=== PATIENT | female | born 1930 | race Caucasian/White ===

== ENCOUNTER 2016-06-12 10:08 | Emergency (ER) | payer MEDICARE, OTHER | END 2016-06-12 10:30 | disposition left against medical advice (07) | LOC: UCEAST 10:08 | DX: M25.519 Pain in unspecified shoulder (principal); Z53.21 Procedure and treatment not carried out due to patient leaving prior to being seen by health care provider ==

== ENCOUNTER 2016-08-29 10:28 | Emergency (ER) | payer MEDICARE, OTHER ==
--- NOTE | 2016-08-29 11:57 | UC ---
Hand/Wrist HPI - HPI Summary HPI Summary: Fell on right wrist - History Of Current Complaint Chief Complaint: UCUpperExtremity Stated Complaint: WRIST INJURY Time Seen by Provider: 08/29/16 11:41 Hx Obtained From: Patient ?: No Mechanism Of Injury: foosh Onset/Duration: Sudden Onset Severity Initially: Moderate Severity Currently: Moderate Pain Intensity: 5 Pain Scale Used: 0-10 Numeric Character Of Pain: Aching Aggravating Factor(s): Movement Alleviating: Rest, Ice Associated Signs And Symptoms: Positive: Swelling Related History: Dominant Hand Right - Allergies/Home Medications Allergies/Adverse Reactions: Allergies Allergy/AdvReac Type Severity Reaction Status Date / Time Gluten Meal Allergy Severe ABD PAIN, Verified 08/29/16 11:24 DIARRHEA Acebutolol Allergy Stomach Verified 08/29/16 11:24 Cramps Aspirin Allergy See Comment Verified 08/29/16 11:24 Atenolol Allergy See Comment Verified 08/29/16 11:24 Carvedilol Allergy Unknown Verified 08/29/16 11:24 Reaction Details Penicillins Allergy See Comment Verified 08/29/16 11:24 Erythromycin AdvReac See Comment Verified 08/29/16 11:24 Iron AdvReac See Comment Verified 08/29/16 11:24 metoprolol Allergy See Comment Uncoded 08/29/16 11:24 propanolol Allergy See Comment Uncoded 08/29/16 11:24 Home Medications: Home Medications Acetaminophen [Acetaminophen Extra Stren] 2 tab PO Q6HR PRN 08/29/16 [History Confirmed 08/29/16] Acyclovir TAB* [Zovirax TAB*] 500 mg PO DAILY 08/29/16 [History Confirmed ] Aspirin [Aspirin 81 MG TAB] 1 tab PO SEE INSTRUCTIONS 08/29/16 [History Confirmed 08/29/16] Cholecalciferol [Vitamin D3] 1 tab PO WEEKLY 08/29/16 [History Confirmed ] DULoxetine DR CAP* [Cymbalta CAP*] 1 tab PO DAILY 08/29/16 [History Confirmed ] Ibuprofen [Advil] 2 tab PO Q6HR PRN 08/29/16 [History Confirmed 08/29/16] Nebivolol HCl [Bystolic] 1 tab PO DAILY 08/29/16 [History Confirmed 08/29/16] Probiotic Product [Align] 1 tab PO DAILY 08/29/16 [History Confirmed 08/29/16] Vitamin B Complex CAP* [B Complex CAP*] 1 tab PO WEEKLY 08/29/16 [History Confirmed 08/29/16] PMH/Surg Hx/FS Hx/Imm Hx Previously Healthy: No Endocrine History Of: Denies: Diabetes Cardiovascular History Of: Reports: Hypertension - on meds Denies: Pacemaker/ICD GI/ History Of: Denies: Renal Disease Cancer History Of: Reports: Breast Cancer - Surgical History Surgical History: Yes Surgery Procedure, Year, and Place: surgical intervention for sm. bowel ca. bilat. radical mastectomy - Family History Known Family History: Positive: Other - stroke, [place], shingles Negative: Cardiac Disease - Social History Occupation: Retired Lives: Alone Alcohol Use: Occasionally Alcohol Amount: "VERY MODEST AMOUNT AT NIGHT" Substance Use Type: None Smoking Status (MU): Never Smoked Tobacco - Immunization History Most Recent Tetanus Shot: 04/18/2014 Review of Systems Constitutional: Negative Skin: Negative Eyes: Negative ENT: Negative Respiratory: Negative Cardiovascular: Negative Gastrointestinal: Negative Genitourinary: Negative Motor: Negative Neurovascular: Negative Musculoskeletal: Arthralgia - right wrist with some swelling Neurological: Negative Psychological: Negative All Other Systems Reviewed And Are Negative: Yes Physical Exam Triage Information Reviewed: Yes Appearance: Well-Appearing, Well-Nourished, Pain Distress Vital Signs: Initial Vital Signs Temp 98.5 F 08/29/16 11:11 Pulse 81 08/29/16 11:11 Resp 16 08/29/16 11:11 BP 147/95 08/29/16 11:11 Pulse Ox 99 08/29/16 11:11 Vital Signs Reviewed: Yes Eye Exam: Normal Eyes: Positive: Conjunctiva Clear ENT Exam: Normal ENT: Positive: Normal ENT inspection, Hearing grossly normal. Negative: Nasal congestion, Nasal drainage, Trismus, Muffled/hoarse voice Dental Exam: Other Dental: Positive: Other: - multiple missing and decayed teeth Neck exam: Normal Neck: Positive: Supple, Nontender Respiratory Exam: Normal Respiratory: Positive: Chest non-tender, Lungs clear, Normal breath sounds, No respiratory distress, No accessory muscle use Cardiovascular Exam: Normal Cardiovascular: Positive: RRR, No Murmur, Pulses Normal, Brisk Capillary Refill Musculoskeletal Exam: Normal Musculoskeletal: Positive: Strength Intact, ROM Intact, Edema @ - right wrist Neurological Exam: Normal Neurological: Positive: Alert, Muscle Tone Normal Psychological Exam: Normal Skin Exam: Normal Diagnostics - Radiology No standard instances Xray Interpretation: No Acute Changes Radiology Interpretation Completed By: Radiologist Re-Evaluation - Re-Evaluation Second Eval Change: Improved - althea and cock up splint applied---patient refused to use cock up splint Hand/Wrist Course/Dx - Course Course Of Treatment: althea, rice,tylenol, follow with ortho---concerned about a impacted radial fracture - Differential Dx/Diagnosis Differential Diagnosis/HQI/PQRI: Contusion, Fracture, Sprain, Strain Provider Diagnoses: right wrist injury Discharge - Discharge Plan Condition: Stable Disposition: HOME Patient Education Materials: Acetaminophen (By mouth), Wrist Injury (ED), DASH Eating Plan (ED), Hypertension (ED), RICE Therapy (ED) Referrals: Nii Ingram MD [Medical Doctor] - 3 Days Kevin Holliday NP [Primary Care Provider] - 2 Weeks
--- NOTE | 2016-08-29 12:20 | RAD ---
INDICATION: Right wrist injury. TECHNIQUE: 3 views of the right wrist were obtained. FINDINGS: The bones are osteopenic. There is soft tissue swelling present along the dorsal aspect of the wrist. No fracture is seen. IMPRESSION: SOFT TISSUE SWELLING, NO FRACTURE IS SEEN. IF THE PATIENT'S SYMPTOMS PERSIST RECOMMEND FOLLOW-UP IMAGING.
[2016-08-29 13:00] VITALS: BP 142/91
== END 2016-08-29 13:00 | disposition home or self-care (01) ==
LOC: UCEAST 10:28
DX: S69.91XA Unspecified injury of right wrist, hand and finger(s), initial encounter (principal); I10 Essential (primary) hypertension; Z88.6 Allergy status to analgesic agent; Z88.3 Allergy status to other anti-infective agents; Z88.0 Allergy status to penicillin; Z79.82 Long term (current) use of aspirin; W19.XXXA Unspecified fall, initial encounter
CPT/HCPCS: 99212; G0463

== ENCOUNTER 2016-11-09 10:36 | Day surgery (SDC) | payer MEDICARE, OTHER ==
[~2016-11-09 10:36] MED LIST: Buffered Lidocaine 0.9% SYRIN* 5 ML/SYR SYRINGE INTRADERM ONE; Famotidine IV* 10 MG/ML 2 ML (20 mg) IV ONE
[2016-11-09] MEDS ORDERED: Famotidine IV* 10 MG/ML 2 ML (20 mg) ONE (10:40)
[2016-11-09] MEDS ORDERED: Clindamycin 900 MG IVPREMIX(* 900 MG/50 ML SDV IV ONE (10:40)
[2016-11-09] MEDS ORDERED: Buffered Lidocaine 0.9% SYRIN* 5 ML/SYR SYRINGE ONE (10:41)
[2016-11-09] MEDS ORDERED: fentaNYL* 50 MCG/ML 2 ML VIAL (100 MCG VIAL) ONE (11:38)
[2016-11-09] MEDS ORDERED: KETAMINE HCL* 50 MG/ML 10 ML VIAL ONE (11:38)
[2016-11-09] MEDS ORDERED: Midazolam* 1 MG/ML 2 ML VIAL (2 MG) ONE (11:38)
[2016-11-09] MEDS ORDERED: oxyCODONE/Acetamin 5/325 MG* TAB PO PRN (12:27)
[2016-11-09] MEDS ORDERED: fentaNYL* 50 MCG/ML 2 ML VIAL (100 MCG VIAL) IV PRN (12:27)
[2016-11-09] MEDS ORDERED: Ondansetron INJ* 2 MG/ML VIAL IV PRN (12:27)
[2016-11-09] MEDS ORDERED: PROCHLORPERAZINE INJ 5 MG/ML 2 ML VIAL IV PRN (12:27)
[2016-11-09] MEDS ORDERED: Lidocaine 1% INJ* 10 MG/ML 30 ML SDV ONE ×2 (12:32→14:50)
[2016-11-09] MEDS ORDERED: Bupivacaine 0.5% W/EPI SDV* 10 ML VIAL INJ ONE (12:32)
[2016-11-09] MEDS ORDERED: Phenylephrine INJ* 10 MG/ML 1 ML VIAL (10 MG) ONE (15:10)
[2016-11-09] MEDS ORDERED: Lidocaine 2% PF * 5 ML VIAL ONE (15:10)
[2016-11-09] MEDS ORDERED: Propofol* 10 MG/ML 20 ML BTL IV PUSH ONE (15:10)
--- NOTE | 2016-11-09 15:23 | SURGPN ---
Brief Operative Note - Surgery Procedures: Procedures OPERATIVE REPORT PRE-OP: Large Cell B Lymphoma Enlarged lymph node in right groin POST-OP: Same PROCEDURE: 1) PowerPort Insertion via percutaneous left internal jugular vein -- 8F 2) Incisional biopsy of enlarged lymph node in right groin SURGEON: MD Shawn ANESTHESIA:Local with MAC Stewart ASST: none IVF: min EBL: min SPECIMEN: Portion of right groin lymph node to pathology FRESH DRAIN: none WOUND CLASS: One COMPLICATIONS: none TO PACU
--- NOTE | 2016-11-09 15:29 | RAD ---
CPT II Codes: 6045F INDICATION: Necessity for Mediport placement and a patient with non-Hodgkin lymphoma. TECHNIQUE: Intraoperative fluoroscopy was provided during left IJV Mediport placement. FINDINGS: 3 spot films depict placement of a left internal jugular vein Mediport with the tip terminating at the low SVC.. Fluoroscopy time: 108.4 seconds IMPRESSION: As above.
--- NOTE | 2016-11-09 16:05 | RAD ---
Indication: Post chest port placement. Non-Hodgkin lymphoma. Comparison: October 26, 2016 PET/CT. Technique: Upright AP 1527 hours Report: Tip of the LEFT chest port is at the level of the superior vena cava RIGHT atrial junction. Negative for pneumothorax. Low lung volumes with associated mild subsegmental atelectasis. Negative for pleural effusion or pneumothorax. Accounting for low lung volumes the mediastinal contours and pulmonary vascularity are unremarkable. IMPRESSION: Appropriate position of LEFT chest port catheter. Negative for pneumothorax.
[2016-11-09 16:15] VITALS: BP 106/75
--- NOTE | 2016-11-10 12:47 | OP ---
CC: Dr. Patricio Orourke * DATE OF OPERATION: 11/09/16 - [facility] DATE OF : 28 SURGEON: Bashir Escobar MD RECORDS MANAGEMENT ENGINEER: None. ANESTHESIOLOGIST: Norbert Sullivan MD ANESTHESIA: Local with monitored anesthesia care. PRE-OP DIAGNOSES: 1. Large B-cell lymphoma. 2. Enlarged lymph node in the right groin. POST-OP DIAGNOSES: 1. Large B-cell lymphoma. 2. Enlarged lymph node in the right groin. OPERATIVE PROCEDURE: 1. Insertion of a left internal jugular vein tunneled 8-Serbian PowerPort. 2. Incisional biopsy of right groin node, sent fresh to Pathology. INDICATIONS: Lilian Morel is an 85-year-old woman with a long history of B- cell lymphoma, now apparently has developed recurrence and to undergo chemotherapy. In addition, she has developed an enlarged lymph node in the right groin and a biopsy has been requested by oncology service for management of her disease. ESTIMATED BLOOD LOSS: Minimal. SPECIMEN: Right groin lymph node, sent fresh to pathology. DRAINS: None. WOUND CLASSIFICATION: I. DESCRIPTION OF PROCEDURE: Written informed consent was obtained, the right and left chest and neck as well as the right groin were marked and antibiotics were administered. The patient was taken to the operating room and placed in the supine position. Initially, the plan was to perform the PowerPort insertion first. The left and right chest and neck were prepped and draped in the usual sterile fashion. Sequential compression devices were placed in the lower extremities. Time-out verification was completed. Initially, 1% lidocaine with epinephrine was infiltrated at the bifurcation of the left sternocleidomastoid muscle and the left neck. Using the ultrasound machine, I was able to identify a suitable-sized patent left internal jugular vein just lateral to the noncompressible artery. Using an 18-gauge Cook needle , I was able to puncture the vein without difficulty with good blood return. The guidewire was inserted. I did meet some resistance at about 5 to 10 cm; however, using fluoroscopy and some careful persistent pressure and withdrawing of guidewire slowly, I was able to feed this into the central venous system down into the superior vena cava and subsequently into the right ventricle. The patient tolerated this portion well. Next, 1% lidocaine with epinephrine was infiltrated on the left anterior chest wall and a transverse incision was made several centimeters below the clavicle. The subcutaneous pocket was made inferior to this large enough to fit the port. Next, a tunnel was then made with the tunneling device between the catheter pocket and the neck puncture site. I did make the puncture site slightly larger in a transverse orientation. Also, a counter incision was made just over the clavicle to make the tunneling process easier, but the catheter was pulled through without difficulty. Next, under direct vision of fluoroscopy, I dilated the tract over the guidewire and subsequently the sheath dilator system was placed over the guidewire and the catheter was inserted over the peel-away sheath and into the superior vena cava. Using fluoroscopy, I was able to pull this back slightly to what I felt was the junction of the right atrium and the superior vena cava. The catheter flushed fluid well and withdrew blood without difficulty. Next, the catheter was cut to the appropriate length, attached to the port, which was then placed into the pocket and sutured into position with 2-0 Prolene suture. Catheter was then tested and it withdrew blood nicely when flushed and then subsequently was flushed with a heparin solution. Hemostasis was assured. The wounds were closed in layers of 3-0 and 4-0 Polysorb suture. The patient had an extremely thin skin and ecchymosis already developed, I thus decided to use Dermabond glue and avoid Steri-Strips and tape dressings. Next, the dressings were removed and the right groin was prepped and draped in the sterile fashion. Time-out verification was completed. 0.5% Marcaine was infiltrated in the right groin. An oblique incision was made over the palpable node. The dissection carried down through the subcutaneous fat until I identified a large firm lymph node appearing mass, which was quite adherent to the surrounding tissue and immobile. This was quite large and I did not feel this would be possible or safe to even attempt an excisional biopsy , thus I took an area of approximately 1 cm x 2 cm using cautery of the top and sent this to Pathology as a fresh specimen. Hemostasis was assured with cautery. I did place some Surgicel for hemostasis over the raw portion of the node. Once hemostasis was assured, I closed the wound in layers with 3-0 and 4-0 Polysorb suture. Once again, DermaFlex glue was placed and no sterile dressing was applied. The patient tolerated the procedure well and was taken to the recovery room in stable condition. Postprocedural chest x-ray showed the catheter to be in good position without evidence of pneumothorax. [id number]/[facility] #: [id number] BESSY
== END 2016-11-09 16:44 | disposition home or self-care (01) ==
LOC: OR 10:36
PROVIDERS: ATTEND Surgery
DX: C85.80 Other specified types of non-Hodgkin lymphoma, unspecified site (principal); I10 Essential (primary) hypertension
CPT/HCPCS: 71010; 88184; 88188; 88307; 88333; 88342; C1788; J1642; J2001; J2250; J2704; J3010

== ENCOUNTER 2016-11-10 17:01 | Inpatient (IN) | payer MEDICARE, OTHER ==
[2016-11-10] MEDS ORDERED: HYDROmorphone* 1 MG/ML 1 ML SYR IV ONE (17:30)
[2016-11-10] MEDS ORDERED: Ondansetron INJ* 2 MG/ML VIAL IV ONE (17:30)
[2016-11-10] MEDS ORDERED: Ketorolac INJ* 30 MG/ML 1 ML VIAL IV ONE (17:35)
--- NOTE | 2016-11-10 18:49 | ED ---
I, Oh,Soohovidio, scribed for Rojelio Pulido MD on 11/10/16 at 1739 . Lower Extremity - HPI Summary HPI Summary: This 85 y/o female presents to ED for right hip pain after tripping over her own shoelace while getting out of truck this afternoon. Movement makes the pain worse. PMHx includes HTN, HLD, constipation, IBS, and hemorrhoid. Hx of ASA use and discontinuation due to easy bleeding. Pt expresses possible constipation due to narcotic medication, and is currently declining any opioid pain medication in ED. - History of Current Complaint Chief Complaint: EDExtremityLower Stated Complaint: FALL Time Seen by Provider: 11/10/16 17:29 Hx Obtained From: Patient, Medical Records Onset/Duration: Hours Pain Intensity: 10 Pain Scale Used: 0-10 Numeric Timing: Constant Location: Is Discrete @ - right hip Character Of Pain: Dull Associated Signs And Symptoms: Positive: Negative Aggravating Factor(s): Standing, Movement Alleviating Factor(s): Rest - Allergies/Home Medications Allergies/Adverse Reactions: Allergies Allergy/AdvReac Type Severity Reaction Status Date / Time Gluten Meal Allergy Severe ABD PAIN, Verified 11/09/16 10:50 DIARRHEA Acebutolol Allergy Stomach Verified 11/09/16 10:50 Cramps Aspirin Allergy See Comment Verified 11/09/16 10:50 Atenolol Allergy See Comment Verified 11/09/16 10:50 Carvedilol Allergy Unknown Verified 11/09/16 10:50 Reaction Details Penicillins Allergy See Comment Verified 11/09/16 10:50 Erythromycin AdvReac See Comment Verified 11/09/16 10:50 Iron AdvReac See Comment Verified 11/09/16 10:50 metoprolol Allergy See Comment Uncoded 11/09/16 10:50 propanolol Allergy See Comment Uncoded 11/09/16 10:50 PMH/Surg Hx/FS Hx/Imm Hx Endocrine/Hematology History: Reports: Other Endocrine/Hematological Disorders - enlarged lymph nodes Denies: Hx Diabetes Cardiovascular History: Reports: Hx Hypertension - on meds Denies: Hx Pacemaker/ICD GI History: Reports: Hx Irritable Bowel, Other GI Disorders - eats soft food, has hemorrhoids History: Denies: Hx Renal Disease, Other Problems/Disorders Musculoskeletal History: Reports: Hx Arthritis - unsure where, Hx Tendonitis - shoulders Denies: Hx Osteoporosis Sensory History: Reports: Hx Cataracts - natanael, Hx Contacts or Glasses - glasses Denies: Hx Hearing Aid Opthamlomology History: Reports: Hx Cataracts - natanael, Hx Contacts or Glasses - glasses Neurological History: Denies: Other Neuro Impairments/Disorders Psychiatric History: Reports: Hx Anxiety - on meds Denies: Hx Panic Disorder - Cancer History Cancer Type, Location and Year: Breast CA bilateral. lymphoma- sm. bowel ca. skin ca Hx Chemotherapy: Yes - Surgical History Surgery Procedure, Year, and Place: surgical intervention for sm. [facility] cancer, [facility] [place], [facility]. bilat. radical mastectomy 1978,[facility] [place] Hx Anesthesia Reactions: No Infectious Disease History: No Infectious Disease History: Reports: Hx Shingles - Currently Denies: History Other Infectious Disease, Traveled Outside the [place] in Last 30 Days - Family History Known Family History: Positive: Other - stroke, [place], shingles Negative: Cardiac Disease - Social History Alcohol Use: Weekly Alcohol Amount: sip quentro 1-2 x per week Hx Substance Use: No Substance Use Type: Reports: None Hx Tobacco Use: No Smoking Status (MU): Never Smoked Tobacco Review of Systems Negative: Fever Negative: Abdominal Pain Positive: Other - right hip All Other Systems Reviewed And Are Negative: Yes Physical Exam - Summary Physical Exam Summary: Well-appearing, no pain distress, well nourished Warm, dry, color reflects adequate perfusion Nml head/face Nml eyes Nml ENT Supple, non-tender CTA, breath sound present RRR Abd soft, non-tender, Musculoskeletal: tender at right hip Nml neuro Nml psychiatric, affect/mood appropriate Triage Information Reviewed: Yes Vital Signs On Initial Exam: Initial Vitals Temp Pulse Resp BP Pulse Ox 98.4 F 56 17 106/83 95 11/10/16 17:04 11/10/16 17:04 11/10/16 17:04 11/10/16 17:04 11/10/16 17:04 Vital Signs Reviewed: Yes - [place] Coma Scale Coma Scale Total: 15 Diagnostics - Vital Signs Vital Signs Temp Pulse Resp BP Pulse Ox 11/10/16 17:12 98.4 F 62 17 106/83 96 11/10/16 17:04 98.4 F 56 17 106/83 95 - Laboratory Lab Statement: Any lab studies that have been ordered have been reviewed, and results considered in the medical decision making process. - Radiology CXR Radiology Interpretation Completed By: Radiologist Right hip Radiology Interpretation Completed By: Radiologist Re-Evaluation - Re-Evaluation First Eval Re-Evaluation Time: 18:31 Comment: MD in room to update pt on X-ray imaging results. Plan of care involving possible admission to OR is discussed with pt. Lower Extremity Course/Dx - Course Course Of Treatment: Consultation: Dr. Barrios (Hospitalist) at [address] Nicole (Ortho) at 1841 PM Assessment/Plan: Ms. Morel had a mechanical fall and broke her right hip. She is being admitted to the hospitalist service with orthopedic consult. - Diagnoses Provider Diagnoses: Closed right hip fracture - Physician Notifications Discussed Care Of Patient With: Dr. Vásquez - 1834, Dr. Nicole - 1844 Discharge - Discharge Plan Condition: Stable Disposition: ADMITTED TO [facility] Referrals: Kevin Holliday, PET TRAINING INSTRUCTOR [Primary Care Provider] - The documentation as recorded by the Yevgeniy valdez Soohyun accurately reflects the service I personally performed and the decisions made by me, Rojelio Pulido MD.
[2016-11-10 18:58] LABS: Hematocrit 37 % (35-47); Hemoglobin 12.4 g/dl (12.0-16.0); Mean Corpuscular HGB Conc 33 g/dl (31-36); Mean Corpuscular Hemoglobin 33 pg (27-31); Mean Corpuscular Volume 98 fL (80-97); Mean Platelet Volume 9 um3 (7.4-10.4); Red Blood Count 3.76 10^6/ul (4.0-5.4); Red Cell Distribution Width 14 % (10.5-15); White Blood Count 9.3 10^3/ul (3.5-10.8)
[2016-11-10 19:08] LABS: Albumin 3.6 g/dL (3.2-5.2); BUN/Creatinine Ratio 20.9 (8-20); Calcium 8.7 mg/dL (8.6-10.3); EGFR African American 107.3 (>60); EGFR Non-African American 83.5 (>60); Globulin 2.6 g/dL (2-4); Total Bilirubin 0.5 mg/dL (0.2-1.0); Total Protein 6.2 g/dL (6.4-8.9)
[2016-11-10 19:09] LABS: Troponin I 0.01 ng/mL (<0.04)
--- NOTE | 2016-11-10 19:44 | RAD ---
Indication: RIGHT hip pain post fall. Comparison: No relevant prior exams available on the [facility] for comparison. Technique: AP pelvis and AP and crosstable lateral views RIGHT hip. Report: Intratrochanteric RIGHT hip fracture with only mild resulting varus angulation. Only minimal osteoarthritic change at the hips. No pelvic fracture or joint diastases evident. 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 Peripheral vascular calcifications. Soft tissue swelling about the LEFT hip. IMPRESSION: Intratrochanteric fracture RIGHT hip.
--- NOTE | 2016-11-10 19:46 | RAD ---
Indication: Fall with RIGHT hip fracture. Comparison: November 09, 2016 Technique: Supine AP chest Report: Tip of LEFT chest port at level of superior vena cava RIGHT atrial junction. Mild medial RIGHT basilar airspace consolidation may represent atelectasis or inflammatory infiltrate. Grossly clear pleural spaces. Cardiomegaly. Unremarkable central pulmonary vasculature. Atherosclerotic calcification of the mildly tortuous thoracic aorta. No thoracic fractures evident. IMPRESSION: Mild medial RIGHT basilar airspace consolidation may represent atelectasis or inflammatory infiltrate.
[2016-11-10] MEDS ORDERED: NS 0.9% 1000 ML* 1,000 ML IV SCH (20:00)
[2016-11-10] MEDS ORDERED: Ondansetron INJ* 2 MG/ML VIAL IV PRN (20:00)
[2016-11-10] MEDS ORDERED: traMADol TAB* 50 MG PO ONE (20:00)
[2016-11-10] MEDS ORDERED: Morphine INJ* 2 MG/ML 1 ML SYRINGE IV PRN (20:00)
[2016-11-10] MEDS ORDERED: Acetaminophen TAB* 325 MG PO PRN (20:00)
[2016-11-10] MEDS ORDERED: Polyethylene Glycol 3350* 17 GM PACKET PO PRN (20:09)
[2016-11-10] MEDS: oxyCODONE/Acetamin 5/325 MG* TAB PO PRN (22:57)
[2016-11-10] MEDS: Pregabalin CAP(*) 50 MG PO SCH (22:57)
[2016-11-10] MEDS: DULoxetine DR CAP* 20 MG CAP.DR PO SCH (22:57)
[2016-11-10] MEDS: Docusate CAP* 100 MG PO SCH (22:58)
--- NOTE | 2016-11-10 23:46 | HP ---
CC: Kevin Holliday NP; Dr. Orourke * ADMISSION HISTORY AND PHYSICAL: DATE OF ADMISSION: 11/10/16 PRIMARY CARE PROVIDER: Dr. Holliday. CONSULTING ORTHOPEDIC SURGEON: Dr. Nicole. PRIMARY ONCOLOGIST: Dr. Orourke. ADMITTING PROVIDER: MALOU Watters SUPERVISING PHYSICIAN: Hemant Mann MD* (DICTATED BY MALOU WATTERS) CHIEF COMPLAINT: Right hip pain. HISTORY OF PRESENT ILLNESS: This is a pleasant 85-year-old female with recent diagnosis of recurrence of B-cell lymphoma as well as hypertension, hyperlipidemia, remote history of breast cancer, GERD, and then unspecified murmur, who presented after sustaining a fall with complaints of right hip pain. The patient, stepping out of an elevator, tripped over her shoe laces and fell on to her right hip with immediate pain. The patient states that she had no preceding complaints of chest pain or dizziness. No presyncopal symptoms. She is quite active at baseline. She lives independently. Functional capacity is excellent. She is able to climb a flight of stairs and walk a city block prior to injury without dyspnea or chest pain. She denies any recent illness including fevers, cough, shortness of breath, abdominal pain , nausea or vomiting. As mentioned above, the patient has unfortunately recently been diagnosed with a recurrence of her lymphoma and is currently under the care of Dr. Orourke. She underwent PowerPort placement and biopsy of right inguinal lymph node just yesterday with plans to start chemotherapy next week. HOME MEDICATIONS: 1. Lyrica unspecified dose, she takes 1 capsule p.o. twice daily. 2. Amlodipine 10 mg p.o. daily. 3. Aspirin 81 mg p.o. daily. 4. Vitamin D3 5000 units weekly. 5. Cymbalta 1 tablet p.o. daily. 6. Ibuprofen 400 mg p.o. q. 6 hours as needed for pain. 7. Nebivolol 5 mg p.o. daily. 8. Probiotic 1 tablet p.o. daily. 9. Valacyclovir 500 mg p.o. daily. 10. Vitamin B complex 1 tablet p.o. weekly. 11. Percocet 5/325 one tablet p.o. q. 6 hours as needed for pain. PAST MEDICAL HISTORY: 1. B-cell lymphoma with recent diagnosis of recurrence. 2. Hypertension. 3. Hyperlipidemia. 4. GERD. 5. Remote history of breast cancer, status post mastectomy. 6. Unspecified heart murmur. PAST SURGICAL HISTORY: 1. Mastectomy x2. 2. Partial bowel resection related to tumor mass. SOCIAL HISTORY: The patient lives independently with her daughter nearby, who is quite supportive. She denies any smoking history and reports occasional alcohol consumption. REVIEW OF SYSTEMS: As noted above in HPI. All other systems have been reviewed and otherwise negative. PHYSICAL EXAMINATION GENERAL: This is an elderly female, accompanied by her daughter and son-in-law , in some mild distress secondary to pain. VITAL SIGNS: Temperature 98.4 degrees Fahrenheit, pulse 56 beats per minute, respiratory rate 17 per minute, oxygen saturation 95% on room air, and blood pressure 106/83 mmHg. HEENT: Head is normocephalic, atraumatic, but the patient has multiple dental caries and missing teeth. NECK: Supple and free of lymphadenopathy. There is a few Steri-Strips that are still in place at the left neck base. RESPIRATORY: Lungs are clear to auscultation without wheezes, crackles, or rhonchi. CARDIOVASCULAR: Heart has a regular rate and rhythm, but there is a loud systolic murmur heard throughout the chest cavity. ABDOMEN: Soft and nontender to palpation. EXTREMITIES: The patient has trace to 1+ lower extremity edema bilaterally. SKIN: The patient has extensive ecchymosis over her left clavicle region, no other concerning rashes or lesions. PSYCH: The patient is alert and appropriately oriented. DIAGNOSTIC STUDIES/LAB DATA: CBC shows a white blood cell count of 9300, hemoglobin 12.4 g/dL, and a platelet count of 213,000. Comprehensive metabolic panel shows a sodium of 136 mmol/L, potassium 4.0, serum bicarb 27, BUN 14, creatinine 0.67. Total bilirubin and transaminases within normal limits. Troponin negative at 0.01. Chest x-ray shows no acute process with a PowerPort in place over the left chest. EKG is pending. Hip x-ray shows a nondisplaced right intertrochanteric fracture. ASSESSMENT AND PLAN: This is an 85-year-old female with recent diagnosis of recurrence of lymphoma, hypertension, hyperlipidemia, GERD, remote breast cancer , and an unspecified murmur, who presents after a mechanical fall resulting in a right hip fracture. 1. Right hip fracture. Orthopedic surgeon, Dr. Nicole, has been in to evaluate the patient and surgery is planned for tomorrow. In terms of preoperative evaluation, EKG is still pending at this time. The patient has no cardiac symptoms. She does have a very loud murmur that is likely consistent with aortic stenosis, but would recommend a preoperative echocardiogram. Otherwise, her RCRI score is 0. There is no additional optimization recommended prior to surgery. Would recommend that she get her beta juliette in the morning and the remainder of her medications, especially her amlodipine should be held. We will start IV fluids this evening to ensure appropriate fluid status preoperatively. The patient is also on a home aspirin, which has been held at this time. Recommend resuming postoperatively, but she has no coronary artery disease history or peripheral vascular disease, so timing of her resuming this medication is not imperative. The patient is extremely fearful of developing constipation and has taken the liberty of starting her on a twice daily stool softener regimen, also ordered a p.r.n. MiraLAX at this time , and the patient would like to limit opiate medications as much as possible. 2. Suspected aortic stenosis. Echocardiogram has been ordered, recommend reviewing this prior to surgery. I suspect she has aortic stenosis, at which point, fluid status is the most important component in avoiding hypotension. 3. Hypertension. Plan to hold her amlodipine tomorrow and continue with her nebivolol. 4. Hyperlipidemia. The patient reports intolerance to multiple statins and is not currently on any lipid-lowering medications. 5. Lymphoma. The patient is recently diagnosed with a recurrence of her disease with PowerPort placement yesterday with plans to initiate chemotherapy next week. Her plans for initiating chemotherapy would certainly need to be addressed with her primary oncologist in terms of appropriate timing and a drug regimen that will provide her the best opportunity for healing. 6. Gastroesophageal reflux disease. 7. Remote history of breast cancer, status post mastectomy x2. 8. Gluten intolerance. Gluten-free diet has been ordered for her. 9. DVT prophylaxis. The patient will be placed on SCDs at this point, but chemical prophylaxis was held with pending surgery for tomorrow. The patient should be started on Lovenox following surgery per Surgery's recommendation. 10. Code status. The patient is a full code. 11. Healthcare proxy is her son, Otis Morel. DISPOSITION: The patient is being admitted to inpatient status with pending surgical fixation tomorrow with pending echocardiogram. Length of stay will be greater than 2 midnights. MALOU WATTERS [id number]/[facility] #: [id number] BESSY
[2016-11-11 05:18] LABS: Hematocrit 34 % (35-47); Hemoglobin 11.1 g/dl (12.0-16.0); Mean Corpuscular HGB Conc 33 g/dl (31-36); Mean Corpuscular Hemoglobin 33 pg (27-31); Mean Corpuscular Volume 99 fL (80-97); Mean Platelet Volume 9 um3 (7.4-10.4); Red Blood Count 3.42 10^6/ul (4.0-5.4); Red Cell Distribution Width 14 % (10.5-15); White Blood Count 7.6 10^3/ul (3.5-10.8)
[2016-11-11 05:34] LABS: BUN/Creatinine Ratio 17.4 (8-20); Calcium 8.2 mg/dL (8.6-10.3); EGFR African American 74.4 (>60); EGFR Non-African American 57.9 (>60); Globulin 2.3 g/dL (2-4); Potassium 3.9 mmol/L (3.5-5.0); Total Bilirubin 0.4 mg/dL (0.2-1.0); Total Protein 5.3 g/dL (6.4-8.9)
[2016-11-11] MEDS ORDERED: NEBIVOLOL 5 MG PO SCH (09:00)
[2016-11-11] MEDS: oxyCODONE/Acetamin 5/325 MG* TAB PO PRN (09:04)
[2016-11-11] MEDS: Pregabalin CAP(*) 50 MG PO SCH ×2 (09:15→21:13)
[2016-11-11] MEDS: Lactobacillus Acidophilu (GG)* 1 CAP CAP PO SCH (09:42)
[2016-11-11] MEDS: Docusate CAP* 100 MG PO SCH ×2 (09:42→21:13)
--- NOTE | 2016-11-11 09:44 | PN ---
Subjective Date of Service: 11/11/16 Interval History: Patient seen and examined at bedside. She reports relatively good pain control to her hip and states, "it doesn't hurt unless I start moving it." Denies CP, SOB, n/v. She had an IV infiltrate in her right arm but denies pain to the extremity. Family History: Unchanged from Admission Social History: Unchanged from Admission Past Medical History: Unchanged from Admission Objective Active Medications: Acetaminophen (Tylenol Tab*) 650 mg PO Q4H PRN PRN Reason: FEVER/PAIN Docusate Sodium (Colace Cap*) 100 mg PO BID [facility] Last Admin: 11/11/16 09:42 Dose: Not Given Duloxetine HCl (Cymbalta Cap*) 20 mg PO BEDTIME [facility] Last Admin: 11/10/16 22:57 Dose: 20 mg Sodium Chloride (Ns 0.9% 1000 Ml*) 1,000 mls @ 75 mls/hr IV PER RATE [facility] Last Admin: 11/10/16 23:05 Dose: 75 mls/hr Lactobacillus Rhamnosus (Culturelle*) 1 cap PO DAILY [facility] Last Admin: 11/11/16 09:42 Dose: Not Given Morphine Sulfate (Morphine Inj (Syringe)*) 2 mg IV Q4H PRN PRN Reason: PAIN Nebivolol (Bystolic Tab (Nf)) 5 mg PO DAILY [facility] Last Admin: 11/11/16 09:04 Dose: 5 mg Ondansetron HCl (Zofran Inj*) 4 mg IV Q4H PRN PRN Reason: NAUSEA/VOMITING Oxycodone/Acetaminophen (Percocet 5/325 Tab*) 1 tab PO Q4H PRN PRN Reason: Pain Last Admin: 11/11/16 09:04 Dose: 1 tab Polyethylene Glycol/Electrolytes (Miralax*) 17 gm PO DAILY PRN PRN Reason: CONSTIPATION Pregabalin (Lyrica Cap(*)) 50 mg PO BID [facility] Last Admin: 11/11/16 09:15 Dose: 50 mg Tramadol HCl (Ultram*) 50 mg PO Q8H PRN PRN Reason: PAIN Valacyclovir HCl (Valtrex 500 Mg (*)) 500 mg PO DAILY [facility] PRN Reason: Protocol Vital Signs 11/10/16 11/10/16 11/10/16 20:22 21:18 21:26 Temperature 98.5 F 98.0 F Pulse Rate 68 70 Respiratory 18 18 18 Rate Blood Pressure 109/64 131/66 (mmHg) O2 Sat by Pulse 95 98 Oximetry 11/10/16 11/10/16 11/10/16 22:45 22:57 23:23 Temperature 98.8 F Pulse Rate 72 Respiratory 18 16 16 Rate Blood Pressure 113/71 (mmHg) O2 Sat by Pulse 95 Oximetry 11/10/16 11/11/16 11/11/16 23:26 00:57 03:40 Temperature 98.1 F Pulse Rate 71 Respiratory 18 16 16 Rate Blood Pressure 98/56 (mmHg) O2 Sat by Pulse 93 Oximetry 11/11/16 11/11/16 09:04 09:15 Temperature Pulse Rate Respiratory 18 18 Rate Blood Pressure (mmHg) O2 Sat by Pulse Oximetry Oxygen Devices in Use Now: None Appearance: Elderly female, lying in bed, NAD Eyes: No Scleral Icterus Ears/Nose/Mouth/Throat: Clear Oropharnyx, Mucous Membranes Moist Neck: NL Appearance and Movements; NL JVP Respiratory: Symmetrical Chest Expansion and Respiratory Effort, Clear to Auscultation Cardiovascular: RRR - loud systolic murmur Abdominal: NL Sounds; No Tenderness; No Distention Extremities: - - ecchymosis to left chest and clavicle, right arm with mild edema, trace BLE edema, distal pulses intact Neurological: Alert and Oriented x 3, NL Muscle Strength and Tone Lines/Tubes/Other Access: Clean, Dry and Intact Peripheral IV Result Diagrams: 11/11/16 04:53 11/11/16 04:53 Assess/Plan/Problems-Billing Assessment: Ms. Morel is an 85 yo female with a PMH of recurrent B-cell lymphoma, HTN, HLD , GERD, and remote hx of breast cancer who presented to the ED on 11/10/16 after a fall and was found to have a right intertrochanteric fracture. - Patient Problems (1) Closed right hip fracture Code(s): S72.001A - FRACTURE OF UNSP PART OF NECK OF RIGHT FEMUR, INIT Comment : Patient with acute intertrochanteric fx of right hip Plan for surgery today Patient has an RCRI score of 0 and previously excellent functional status. Her echocardiogram shows concern for moderate aortic stenosis, for which we recommend close monitoring of patient's volume status. The patient's RV and LV function appears stable and no wall motion abnormalities noted. Patient has no further optimization recommended at this time. (2) HTN (hypertension) Code(s): I10 - ESSENTIAL (PRIMARY) HYPERTENSION Comment: Normotensive Continue nebivolol with hold parameters Hold amlodipine (3) HLD (hyperlipidemia) Code(s): E78.5 - HYPERLIPIDEMIA, UNSPECIFIED Comment: Statin intolerance reported by patient Diet controlled (4) B-cell lymphoma Code(s): C85.10 - UNSPECIFIED B-CELL LYMPHOMA, UNSPECIFIED SITE Comment: Port placement on 11/09 with plan for chemotherapy next week Patient follows with Dr. Orourke. Oncology aware of patient's admission. Continue outpatient follow-up (5) Aortic stenosis, moderate Code(s): I35.0 - NONRHEUMATIC AORTIC (VALVE) STENOSIS (6) DVT prophylaxis Comment: SCDs prior to surgery Resume chemical prophylaxis following surgery Status and Disposition: Inpatient admission. Anticipate LOS >2 days.
--- NOTE | 2016-11-11 10:44 | ECHO ---
Patient: PACHECO NOONAN [facility] Rec#: [id number] : 1930 Date: 11/11/2016 Age: 85y Height: 147.3 cm / 58.0 in Weight: 56.7 kg / 125.0 lbs Sex: F BSA: 1.5 Room#: 335 Admit Date#: 11/10/2016 Type: Inpatient Referring: Byron Norris Reading: Darleen Cárdenas MD Environmental Health Technologist: Tiff García RN RDCS CC: LYDIA BUTLER NP CC: Simone May DO Transthoracic Echocardiogram Indication: Cardiac murmur BP: 98/56 HR: 74 Rhythm: NSR with PACs Findings History: Recurrent B-cell lymphoma, breast cancer, bilateral mastectomy, HTN, HLD, cardiac murmur, anticipating surgery for right hip fracture Technical Comments: The study quality is fair. The study was technically limited due to the patient's inability to lay in the left lateral decubitus position. Completed at 0905. Left Ventricle: The left ventricular chamber size is decreased. Septal wall hypertrophy is observed. There is increased basal septal hypertrophy noted without evidence of an increased gradient across the left ventricular outflow tract. Global left ventricular wall motion and contractility are within normal limits. There is normal left ventricular systolic function. The estimated ejection fraction is 60-65%. Abnormal left ventricular diastolic filling is observed, consistent with impaired relaxation. Left Atrium: The left atrium is slightly dilated. Right Ventricle: The right ventricular chamber size and systolic function are within normal limits. Right Atrium: The right atrial cavity size is normal. Aortic Valve: The aortic valve is trileaflet. The aortic valve leaflets are moderately thickened. Systolic excursion of the aortic valve cusps is reduced. There is no evidence of aortic regurgitation. There is moderate aortic stenosis. The mean gradient of the aortic valve is 16.7 mmHg. The peak instantaneous gradient of the aortic valve is 23.4 mmHg. The aortic valve area, by peak velocities, is calculated at 1 cm2. The aortic valve area, by VTI's, is calculated at 0.9 cm2. The dimensionless index is 0.35-0.38. Mitral Valve: There is mitral annular calcification. The mitral valve leaflets are mildly thickened. There is mild mitral regurgitation. There is no evidence of mitral stenosis. Tricuspid Valve: The tricuspid valve leaflets are normal. There is mild to moderate tricuspid regurgitation. There is evidence of mild pulmonary hypertension. There is no tricuspid stenosis. Pulmonic Valve: The pulmonic valve appears normal. There is a trace pulmonic regurgitation. There is no pulmonic stenosis. Pericardium: There is no significant pericardial effusion. A pericardial fat pad is visualized. Aorta: There is mild dilatation of the ascending aorta. The aortic arch is not well visualized. There is no dilation of the aortic root. Pulmonary Artery: The main pulmonary artery is not well visualized. Venous: The venous system is not well visualized. The inferior vena cava is not visualized. Conclusions The left ventricular chamber size is decreased, septal hypertrophy noted. Global left ventricular wall motion and contractility are within normal limits. The estimated ejection fraction is 60-65%. Abnormal left ventricular diastolic filling is observed, consistent with impaired relaxation. The right ventricular chamber size and systolic function are within normal limits. There is moderate aortic stenosis: mean gradient is 16.7 mmHg, ANDREEA is 0.9 cm2. The dimensionless index is 0.35-0.38. There is mitral annular calcification with mild mitral regurgitation. There is mild to moderate tricuspid regurgitation. There is evidence of mild pulmonary hypertension: 42 mmHg. There is mild dilatation of the ascending aorta: 3.7 cm. Compared with prior echo of 11/16/14, LV and RV function are stable, mild progression in , prior mean gradient 14 mmHg, prior ANDREEA 1.1 cm2, the degree of MR has improved, TR stable, PA pressure presviously 27 mmHg. Ascending aorta dilitation is new. Measurements Name Value Normal Range RVDdMajor (2D) 2.5 cm (2.2 - 4.4) RAd ISD 4CH 4.7 cm (3.4 - 4.9) RA (A4C)W 3.6 cm (2.9 - 4.6) IVSd (2D) 1.6 cm (0.6 - 1) LVPWd (2D) 1.1 cm (0.6 - 1) LVIDd (2D) 2.7 cm (3.6 - 5.4) LVIDs (2D) 1.9 cm - LV FS (2D) 30 % (25 - 45) Aortic Annulus 1.9 cm (1.4 - 2.6) Ao root diameter (2D) 2.9 cm (2.1 - 3.5) Ascending Ao 3.7 cm (2.1 - 3.4) LA dimension (AP) 2D 4.2 cm (2.3 - 3.8) LAd ISD 4CH 4.9 cm (2.9 - 5.3) LA ISD 4CH W 3.8 cm (2.5 - 4.5) Name Value Normal Range LA ESV SP 4CH (A/L) 43 ml - LA ESV SP 2CH (A/L) 54 ml - LA ESV BP (A/L) 49 ml - LA ESV BP (A/L) index 33 ml/m2 - LA ESV SP 4CH (MOD) 42 ml - LA ESV SP 2CH (MOD) 52 ml - Name Value Normal Range MV E-wave Vmax 0.94 m/sec - MV deceleration time 336 msec - MV A-wave Vmax 1.4 m/sec - MV E:A ratio 0.7 ratio - LV septal e' Vmax 0.07 m/sec - LV lateral e' Vmax 0.08 m/sec - LV E:e' septal ratio 13.4 ratio - LV E:e' lateral ratio 11.8 ratio - Name Value Normal Range AV Vmax 2.4 m/sec - AV VTI 60.6 cm - AV peak gradient 23.4 mmHg - AV mean gradient 16.7 mmHg - LVOT diameter 1.8 cm - LVOT Vmax 0.91 m/sec - LVOT VTI 21.1 cm - LVOT peak gradient 3.3 mmHg - LVOT mean gradient 2 mmHg - DOI (VTI) 0.35 ratio - DOI (Vmax) 0.38 ratio - SV LVOT 53.4 ml - ANDREEA (continuity Vmax) 1 cm2 - ANDREEA (continuity VTI) 0.9 cm2 - Name Value Normal Range TR Vmax 2.9 m/sec - TR peak gradient 34 mmHg - RAP 8 mmHg - RVSP 42 mmHg - Name Value Normal Range PV Vmax 0.89 m/sec -
[2016-11-11] MEDS: TRIAMCINOLONE 0.1% TOPICAL SCH ×3 (11:42→21:20)
[2016-11-11] MEDS ORDERED: EPHEDrine (Pressors)* 50 MG/ML VIAL IV SLOW PU ONE (12:30)
[2016-11-11] MEDS ORDERED: Ondansetron INJ* 2 MG/ML VIAL IV ONE (12:30)
[2016-11-11] MEDS ORDERED: Midazolam* 1 MG/ML 2 ML VIAL (2 MG) IV ONE (12:30)
[2016-11-11] MEDS ORDERED: Propofol* 10 MG/ML 20 ML BTL IV PUSH ONE (12:30)
[2016-11-11] MEDS ORDERED: Dexamethasone IV* 4 MG/ML 1 ML (4 MG) IV SLOW PU ONE (12:30)
[2016-11-11] MEDS ORDERED: fentaNYL* 50 MCG/ML 2 ML VIAL (100 MCG VIAL) IV ONE (12:30)
[2016-11-11] MEDS ORDERED: KETAMINE HCL* 50 MG/ML 10 ML VIAL IV ONE (12:30)
[2016-11-11] MEDS ORDERED: Phenylephrine INJ* 10 MG/ML 1 ML VIAL (10 MG) IV ONE (12:30)
[2016-11-11] MEDS ORDERED: Lidocaine 2.5%/Prilocain 2.5%* 5 GM TUBE TOPICAL ONE (13:13)
[2016-11-11] MEDS ORDERED: Buffered Lidocaine 0.9% SYRIN* 5 ML/SYR SYRINGE INTRADERM ONE (14:47)
[2016-11-11] MEDS ORDERED: Famotidine IV* 10 MG/ML 2 ML (20 mg) IV ONE (14:47)
[2016-11-11] MEDS ORDERED: Famotidine IV* 10 MG/ML 2 ML (20 mg) ONE (15:00)
[2016-11-11] MEDS ORDERED: ceFAZolin 2 GM PREMIX(*) 2 GM/50 ML BAG IVPB ONE (15:33)
[2016-11-11] MEDS ORDERED: Bupivacaine 0.25% W/EPI* 50 ML VIAL ONE (16:20)
[2016-11-11] MEDS ORDERED: oxyCODONE/Acetamin 5/325 MG* TAB PO PRN (18:23)
[2016-11-11] MEDS ORDERED: fentaNYL* 50 MCG/ML 2 ML VIAL (100 MCG VIAL) IV PRN (18:23)
[2016-11-11] MEDS ORDERED: fentaNYL* 50 MCG/ML 2 ML VIAL (100 MCG VIAL) ONE (18:23)
[2016-11-11] MEDS ORDERED: Morphine INJ* 2 MG/ML 1 ML SYRINGE IV PRN (18:23)
--- NOTE | 2016-11-11 18:41 | RAD ---
INDICATION: Gamma nail internal fixation RIGHT hip fracture. COMPARISON: November 10, 2016 TECHNIQUE: 48 seconds fluoroscopy. FINDINGS: Spot images document placement of a gamma nail with a distal locking screw at the femoral intramedullary sera component with resulting anatomic alignment. IMPRESSION: Procedural fluoroscopy. CPT II Codes: 6045F
[2016-11-11] MEDS ORDERED: NS 0.9% 1000 ML* 1,000 ML IV SCH (19:45)
[2016-11-11] MEDS: traMADol TAB* 50 MG PO PRN (21:13)
[2016-11-11] MEDS: DULoxetine DR CAP* 20 MG CAP.DR PO SCH (21:14)
[2016-11-12] MEDS ORDERED: ceFAZolin 1 GM in Dextrose (*) 1 GM/50 ML BAG IVPB SCH
[2016-11-12] MEDS: ceFAZolin VIAL(*) 1 GM in NS 0.9% 50 ML* 50 ML IVPB SCH ×3 (00:04→15:50)
--- NOTE | 2016-11-12 04:23 | OP ---
DATE OF OPERATION: 11/11/16 - ROOM #335 DATE OF : 28 SURGEON: Jl Nicole MD ANESTHESIOLOGIST: Norbert Sullivan MD ANESTHESIA: General. PRE-OP DIAGNOSIS: Right hip intertrochanteric fracture. POST-OP DIAGNOSIS: Right hip intertrochanteric fracture. OPERATIVE PROCEDURE: Gamma nailing, right hip fracture. ESTIMATED BLOOD LOSS: 100 cc. COMPLICATIONS: None. SUMMARY: Ms. Morel is an 85-year-old female who had fallen yesterday evening. I met her in the emergency room and discussed with her that a short gamma nail should work well to hold her fracture in place while this heals. Unfortunately, she had been in the hospital here just on Wednesday having a port placed as she has a recurrence of her large B-cell lymphoma. Risks of surgery such as infection, scar formation, stiffness, DVT and increased risk of the DVT and pulmonary embolism were discussed with her. She was admitted to the hospitalist service and had been declared medically optimized. DESCRIPTION OF PROCEDURE: The patient was brought to the OR and general anesthesia was introduced. She was then transferred to the fracture table and placed in a little bit of traction and the leg was adjusted until I had a nice alignment and C-arm was brought in and used to check alignment of the fracture. The fracture was no longer visible by C-arm. Right hip area was prepped and then draped. Skin over the incisional areas were infiltrated using 0.25% Marcaine with epinephrine and a total of 50 cc would be used for the case. Initial incision was made beginning just a little bit proximal to the greater trochanter, it was carried down through the skin and subcutaneous fat. Using a Metzenbaum scissor, I found the alignment that I wanted to make sure I came to the tip of the greater trochanter and deep fascia was then incised where I come through with the scissor. I could then easily palpate tip of the greater trochanter and awl was then placed. Awl was started a little bit and then C- arm was checked in the lateral position and I was aiming. I came in a little bit too posterior and this was taken out and I came back on the AP and restarted , and at this time, it was little too anterior and then finally on the third try , I came right down the center. Guidewire was placed and the reamer was run proximally. Gamma nail was then slid down in its place and the locking arm was adjusted and the guide was then slipped forward. Skin was incised and straight snap was placed and used to open a little bit of the fascia. Guide was then seated down to the bone and the drill was run. C-arm guidance was used to make sure that on the lateral I was coming right down the neck and into the head. Coming back to the AP, positioning was also very good. Measurement was read off of the guidewire and a 95-mm screw was called for. Inner guide was removed and the screw was placed. Nice bite was obtained. Proximal lock was then seated and again this felt good. Distal locking screw guide was placed and again skin was incised and the soft tissues below were bluntly split. Drill was run and a 35-mm screw was called for. Screw seated nicely. Final pictures were saved in both AP and lateral planes. Wounds were irrigated using a bulb syringe and the fascia proximally was closed using a 0 Vicryl. Subcutaneous tissues were reapproximated using 2-0 Vicryl. Skin was closed using oz. Sterile dressing was applied. The patient was then awakened, stable on transfer to the recovery room. [id number]/[facility] #: [id number] BESSY
[2016-11-12 05:24] LABS: Hematocrit 30 % (35-47); Hemoglobin 9.9 g/dl (12.0-16.0); Mean Corpuscular HGB Conc 33 g/dl (31-36); Mean Corpuscular Hemoglobin 33 pg (27-31); Mean Corpuscular Volume 99 fL (80-97); Mean Platelet Volume 9 um3 (7.4-10.4); Red Blood Count 3.03 10^6/ul (4.0-5.4); Red Cell Distribution Width 14 % (10.5-15); White Blood Count 10.3 10^3/ul (3.5-10.8)
[2016-11-12 05:28] LABS: Add Diff/Slide Review? Slide Review Added; Comments Flag Yes
[2016-11-12 05:39] LABS: BUN/Creatinine Ratio 17.6 (8-20); Calcium 7.7 mg/dL (8.6-10.3); EGFR African American 81.6 (>60); EGFR Non-African American 63.4 (>60); Potassium 4.1 mmol/L (3.5-5.0)
[2016-11-12] MEDS: Pregabalin CAP(*) 50 MG PO SCH ×2 (07:57→22:22)
[2016-11-12] MEDS: ValACYclovir (*) 500 MG TAB PO SCH (07:57)
[2016-11-12] MEDS: Docusate CAP* 100 MG PO SCH ×2 (07:57→22:21)
[2016-11-12] MEDS: traMADol TAB* 50 MG PO PRN ×2 (07:57→15:55)
[2016-11-12] MEDS: Lactobacillus Acidophilu (GG)* 1 CAP CAP PO SCH (07:58)
[2016-11-12] MEDS: Heparin VIAL(*) 5000 UNITS/ML VIAL (FIVE THOUSAND) SUBCUT SCH ×2 (07:58→22:22)
[2016-11-12] MEDS: NEBIVOLOL 5 MG PO SCH (08:02)
[2016-11-12] MEDS: TRIAMCINOLONE 0.1% TOPICAL SCH ×3 (10:15→20:12)
[2016-11-12] MEDS ORDERED: diPHENhydraMINE IV* 25 MG in NS 0.9% 50 ML* 50 ML IVPB ONE (11:19)
[2016-11-12] MEDS ORDERED: diPHENhydraMINE IV* 50 MG/ML 1 ml VIAL (BENADRYL) IV PRN (11:19)
--- NOTE | 2016-11-12 11:19 | PN ---
Subjective Date of Service: 11/12/16 Interval History: Patient seen and examined at bedside. The patient is laying completely naked in bed, scratching vigorously. She states that "I'm always itchy" and reports that this is secondary to previous shingles infection. Denies any worsening itching but prefers not to wear clothes , as they increase irritation. She feels the surgery prep may have worsened her itching. Denies CP, SOB, abd pain, n/v. Patient dislikes right hip dressing and is scratching around the site, despite instructions not to do so. She reports extreme sensitivity to tapes, clothes, elastic, etc. and prefers to like in bed with no clothes in order to prevent exacerbation of itching. Family History: Unchanged from Admission Social History: Unchanged from Admission Past Medical History: Unchanged from Admission Objective Active Medications: Acetaminophen (Tylenol Tab*) 650 mg PO Q4H PRN PRN Reason: FEVER/PAIN Docusate Sodium (Colace Cap*) 100 mg PO BID ON LICENSE OF [facility] Last Admin: 11/12/16 07:57 Dose: 100 mg Duloxetine HCl (Cymbalta Cap*) 20 mg PO BEDTIME ON LICENSE OF [facility] Last Admin: 11/11/16 21:14 Dose: 20 mg Heparin Sodium (Porcine) (Heparin Flush Port (Ivad)) 5 ml FLUSH DAILY ON LICENSE OF [facility] PRN Reason: Protocol Last Admin: 11/12/16 08:06 Dose: Not Given Heparin Sodium (Porcine) (Heparin Vial(*)) 5,000 units SUBCUT Q12HR ON LICENSE OF [facility] Last Admin: 11/12/16 07:58 Dose: 5,000 units Sodium Chloride (Ns 0.9% 1000 Ml*) 1,000 mls @ 75 mls/hr IV PER RATE ON LICENSE OF [facility] Last Admin: 11/11/16 21:12 Dose: 75 mls/hr Cefazolin Sodium 1 gm/ Sodium (Chloride) 50 mls @ 200 mls/hr IVPB Q8H ON LICENSE OF [facility] Stop: 11/12/16 16:14 Last Admin: 11/12/16 07:38 Dose: 200 mls/hr Lactobacillus Rhamnosus (Culturelle*) 1 cap PO DAILY ON LICENSE OF [facility] Last Admin: 11/12/16 07:58 Dose: 1 cap Morphine Sulfate (Morphine Inj (Syringe)*) 2 mg IV Q4H PRN PRN Reason: PAIN Nebivolol (Bystolic Tab (Nf)) 5 mg PO DAILY ON LICENSE OF [facility] Last Admin: 11/12/16 08:02 Dose: 5 mg Ondansetron HCl (Zofran Inj*) 4 mg IV Q4H PRN PRN Reason: NAUSEA/VOMITING Oxycodone/Acetaminophen (Percocet 5/325 Tab*) 1 tab PO Q4H PRN PRN Reason: Pain Last Admin: 11/11/16 09:04 Dose: 1 tab Polyethylene Glycol/Electrolytes (Miralax*) 17 gm PO DAILY PRN PRN Reason: CONSTIPATION Pregabalin (Lyrica Cap(*)) 50 mg PO BID ON LICENSE OF [facility] Last Admin: 11/12/16 07:57 Dose: 50 mg Tramadol HCl (Ultram*) 50 mg PO Q8H PRN PRN Reason: PAIN Last Admin: 11/12/16 07:57 Dose: 50 mg Triamcinolone Acetonide (Triamcinolone Acetonide) 0.1 % TOPICAL TID ON LICENSE OF [facility] Last Admin: 11/12/16 10:15 Dose: 0.1 % Valacyclovir HCl (Valtrex 500 Mg (*)) 500 mg PO DAILY ON LICENSE OF [facility] PRN Reason: Protocol Last Admin: 11/12/16 07:57 Dose: 500 mg Vital Signs 11/11/16 11/11/16 11/11/16 11:15 11:49 17:11 Temperature 98.0 F 97.2 F Pulse Rate 64 58 Respiratory 16 16 16 Rate Blood Pressure 107/56 112/65 (mmHg) O2 Sat by Pulse 91 97 Oximetry 11/11/16 11/11/16 11/11/16 17:15 17:20 17:30 Temperature Pulse Rate 61 60 63 Respiratory 18 20 20 Rate Blood Pressure 114/62 107/60 101/56 (mmHg) O2 Sat by Pulse 99 99 95 Oximetry 11/11/16 11/11/16 11/11/16 17:45 18:00 18:15 Temperature Pulse Rate 67 65 70 Respiratory 18 18 16 Rate Blood Pressure 96/55 99/55 102/60 (mmHg) O2 Sat by Pulse 95 96 94 Oximetry 11/11/16 11/11/16 11/11/16 18:30 19:00 19:30 Temperature 97.4 F Pulse Rate 72 58 65 Respiratory 16 16 16 Rate Blood Pressure 101/57 95/55 92/51 (mmHg) O2 Sat by Pulse 93 94 97 Oximetry 11/11/16 11/11/16 11/11/16 20:00 20:29 21:13 Temperature 98.3 F Pulse Rate 65 Respiratory 16 20 17 Rate Blood Pressure 103/59 (mmHg) O2 Sat by Pulse 97 Oximetry 11/11/16 11/11/16 11/11/16 22:27 23:13 23:54 Temperature 98.6 F 98.2 F Pulse Rate 67 73 Respiratory 21 16 20 Rate Blood Pressure 105/62 111/66 (mmHg) O2 Sat by Pulse 98 98 Oximetry 11/12/16 11/12/16 11/12/16 01:28 01:29 03:42 Temperature 99.9 F 97.6 F Pulse Rate 72 70 Respiratory 17 20 Rate Blood Pressure 101/57 101/58 (mmHg) O2 Sat by Pulse 98 92 98 Oximetry 11/12/16 11/12/16 11/12/16 07:23 07:41 07:57 Temperature 98.6 F Pulse Rate 78 Respiratory 16 16 16 Rate Blood Pressure 101/56 (mmHg) O2 Sat by Pulse 94 94 Oximetry 11/12/16 09:57 Temperature Pulse Rate Respiratory 16 Rate Blood Pressure (mmHg) O2 Sat by Pulse Oximetry Oxygen Devices in Use Now: None Appearance: Elderly female, chronically ill appearing, lying in bed, scratching vigorously, but otherwise in NAD Eyes: No Scleral Icterus Ears/Nose/Mouth/Throat: Clear Oropharnyx, Mucous Membranes Moist Neck: NL Appearance and Movements; NL JVP Respiratory: Symmetrical Chest Expansion and Respiratory Effort, Clear to Auscultation Cardiovascular: RRR - loud murmur Abdominal: NL Sounds; No Tenderness; No Distention Extremities: No Clubbing, Cyanosis Skin: - - Patient with frail, ecchymotic red skin. Worsening urticaria noted to abdomen with visible scratches and excoriation noted to abdomen Neurological: Alert and Oriented x 3 Lines/Tubes/Other Access: Clean, Dry and Intact Central Line - left chest wall port Nutrition: Taking PO's Result Diagrams: 11/12/16 05:15 11/12/16 05:15 Assess/Plan/Problems-Billing Assessment: Ms. Morel is an 85 yo female with a PMH of recurrent B-cell lymphoma, HTN, HLD , GERD, and remote hx of breast cancer who presented to the ED on 11/10/16 after a fall and was found to have a right intertrochanteric fracture. - Patient Problems (1) Closed right hip fracture Code(s): S72.001A - FRACTURE OF UNSP PART OF NECK OF RIGHT FEMUR, INIT Comment : POD #1 Management per ortho HH stable Continue PT/OT Pain management (2) Chronic pruritus Code(s): L29.9 - PRURITUS, UNSPECIFIED Comment: Exacerbated by gown and surgery prep Patient states it has worsened after having shingles earlier this year Affected area looks the same to the patient Abdominal urticaria - plan for one dose IV diphendyramine Continue prn antihistamines and home triamcinolone cream (3) HTN (hypertension) Code(s): I10 - ESSENTIAL (PRIMARY) HYPERTENSION Comment: Normotensive Continue nebivolol with hold parameters Hold amlodipine (4) HLD (hyperlipidemia) Code(s): E78.5 - HYPERLIPIDEMIA, UNSPECIFIED Comment: Statin intolerance reported by patient Diet controlled (5) B-cell lymphoma Code(s): C85.10 - UNSPECIFIED B-CELL LYMPHOMA, UNSPECIFIED SITE Comment: Port placement on 11/09 with plan for chemotherapy next week Patient follows with Dr. Orourke. Oncology aware of patient's admission. Continue outpatient follow-up (6) Aortic stenosis, moderate Code(s): I35.0 - NONRHEUMATIC AORTIC (VALVE) STENOSIS (7) DVT prophylaxis Comment: SQ heparin SCDs Status and Disposition: Inpatient admission. Anticipate LOS >2 days.
[2016-11-12] MEDS ORDERED: Calcium Carbonate CHEW TAB* 500 MG (TUMS) PO PRN (11:25)
--- NOTE | 2016-11-12 11:32 | PN ---
Progress Note - Progress Note Date of Service: 11/12/16 SOAP: Subjective: []Patient seen at bedside, she is scratching her right posterior and distal right leg. "I'm itchy all over." JOSE Joiner present at bedside as well and states overall her skin looks more "rashy" on abdominal area than is was yesterday before surgery. Her right incisional pain is minimal. Objective: [] Vital Signs Temp 98.6 F 11/12/16 07:23 Pulse 78 11/12/16 07:23 Resp 16 11/12/16 09:57 BP 101/56 11/12/16 07:23 Pulse Ox 94 11/12/16 07:41 Intake & Output 11/11/16 11/12/16 11/12/16 18:59 06:59 18:59 Intake Total 1383 1361 Output Total 250 675 Balance 1133 686 Intake: IV Fluids 1383 761 LR 700 NS 683 761 IVPB 50 ABX - CEFAZOLIN 50 Oral 550 Output: Smith 250 675 Other: # Bowel Movements 0 Estimated Blood Loss 100 Comment Laboratory Results - last 24 hr 11/12/16 11/12/16 05:15 05:15 WBC 10.3 RBC 3.03 L Hgb 9.9 L Hct 30 L MCV 99 H MCH 33 H MCHC 33 RDW 14 Plt Count 166 MPV 9 Neut % (Auto) 90.1 H Lymph % (Auto) 2.7 L [place] % (Auto) 6.6 Eos % (Auto) 0 Baso % (Auto) 0.6 Absolute Neuts (auto) 9.2 H Absolute Lymphs (auto) 0.3 L Absolute Monos (auto) 0.7 Absolute Eos (auto) 0 Absolute Basos (auto) 0.1 Absolute Nucleated RBC 0.01 Nucleated RBC % 0 Sodium 136 Potassium 4.1 Chloride 107 Carbon Dioxide 26 Anion Gap 3 BUN 15 Creatinine 0.85 Est GFR ( Amer) 81.6 Est GFR (Non-Af Amer) 63.4 BUN/Creatinine Ratio 17.6 Glucose 155 H Calcium 7.7 L Right thigh dressings are intact and dry despite scratching distal to the dressings calf NT and soft +active flexion right knee in bed without pain sensation/ circulation intact Assessment: []s/p Gamma nail for right IT fracture POD #1 Plan: []PT/PT WBAT RLE Benedryl and hydroxazine per medicine for pruritis Heparin for DVT prophylaxis
[2016-11-12] MEDS: DULoxetine DR CAP* 20 MG CAP.DR PO SCH (22:22)
[2016-11-13 07:09] LABS: Hematocrit 27 % (35-47); Hemoglobin 9.1 g/dl (12.0-16.0)
[2016-11-13 07:20] LABS: BUN/Creatinine Ratio 24.4 (8-20); EGFR African American 76.3 (>60); EGFR Non-African American 59.4 (>60); Potassium 3.8 mmol/L (3.5-5.0)
--- NOTE | 2016-11-13 07:53 | PN ---
Progress Note - Progress Note Date of Service: 11/13/16 SOAP: Subjective: 85 y/o female admitted to medicine s/p R hip gamma nail 11/11/[address] Nicole. Patient overall feeling well, less itching overnight. Would like to go home, but understands is in best interest currently for rehab. Objective: General- Well appearing, NAD, AO MSK- dressing removed, oz intact, no drainage noted. + DF/PF b/l LEs, PT pulses 2+ Active Medications Generic Name Dose Route Start Last Admin Trade Name Freq PRN Reason Stop Dose Admin Acetaminophen 650 mg 11/10/16 20:00 Tylenol Tab* PO Q4H PRN FEVER/PAIN Calcium Carbonate 500 mg 11/12/16 11:25 Tums* PO TID PRN DYSPEPSIA Diphenhydramine HCl 25 mg 11/12/16 11:19 Benadryl Iv* IV Q4H PRN PRURITIS Docusate Sodium 100 mg 11/10/16 21:00 11/12/16 22:21 Colace Cap* PO 100 mg BID [facility] Administration Duloxetine HCl 20 mg 11/10/16 22:15 11/12/16 22:22 Cymbalta Cap* PO 20 mg BEDTIME [facility] Administration Heparin Sodium (Porcine) 5 ml 11/11/16 14:00 11/13/16 06:33 Heparin Flush Port (Ivad) FLUSH 5 ml DAILY [facility] Administration Protocol Heparin Sodium (Porcine) 5,000 units 11/12/16 09:00 11/12/16 22:22 Heparin Vial(*) SUBCUT 5,000 units Q12HR [facility] Administration Sodium Chloride 1,000 mls @ 75 mls/hr 11/11/16 19:45 11/11/16 21:12 Ns 0.9% 1000 Ml* IV 75 mls/hr PER RATE [facility] Administration Lactobacillus Rhamnosus 1 cap 11/11/16 09:00 11/12/16 07:58 Culturelle* PO 1 cap DAILY [facility] Administration Morphine Sulfate 2 mg 11/10/16 20:00 Morphine Inj (Syringe)* IV Q4H PRN PAIN Nebivolol 5 mg 11/12/16 07:05 11/12/16 08:02 Bystolic Tab (Nf) PO 5 mg DAILY [facility] Administration Ondansetron HCl 4 mg 11/10/16 20:00 Zofran Inj* IV Q4H PRN NAUSEA/VOMITING Oxycodone/Acetaminophen 1 tab 11/10/16 20:00 11/11/16 09:04 Percocet 5/325 Tab* PO 1 tab Q4H PRN Administration Pain Polyethylene Glycol/Electrolytes 17 gm 11/10/16 20:09 Miralax* PO DAILY PRN CONSTIPATION Pregabalin 50 mg 11/10/16 21:00 11/12/16 22:22 Lyrica Cap(*) PO 50 mg BID [facility] Administration Tramadol HCl 50 mg 11/10/16 20:04 11/12/16 15:55 Ultram* PO 50 mg Q8H PRN Administration PAIN Triamcinolone Acetonide 0.1 % 11/11/16 10:57 11/12/16 20:12 Triamcinolone Acetonide TOPICAL 0.1 % TID [facility] Administration Valacyclovir HCl 500 mg 11/12/16 09:00 11/12/16 07:57 Valtrex 500 Mg (*) PO 500 mg DAILY [facility] Administration Protocol Laboratory Results - last 24 hr 11/13/16 11/13/16 06:30 06:30 Hgb 9.1 L Hct 27 L Sodium 138 Potassium 3.8 Chloride 109 Carbon Dioxide 27 Anion Gap 2 BUN 22 Creatinine 0.90 Est GFR ( Amer) 76.3 Est GFR (Non-Af Amer) 59.4 BUN/Creatinine Ratio 24.4 H Glucose 112 H Calcium 8.0 L Vital Signs Temp 98.1 F 11/13/16 03:57 Pulse 71 11/13/16 03:57 Resp 20 11/13/16 03:57 BP 107/54 11/13/16 03:57 Pulse Ox 94 11/13/16 03:57 Intake & Output 11/12/16 11/13/16 11/13/16 18:59 06:59 18:59 Intake Total 1055 580 Output Total 475 400 Balance 580 180 Intake: IV Fluids 515 NS 515 IVPB 60 ABX - CEFAZOLIN 60 Oral 480 580 Output: Urine 0 400 Smith 475 Other: # Bowel Movements 0 Assessment: 85 y/o female admitted to medicine s/p R hip gamma nail 11/11/[address] Nicole Plan: - DVT prophylaxis- heparin in house - low O2 sats- Discuss with hostpialist, continue to monitor - PMRU D/C today
[2016-11-13] MEDS: ValACYclovir (*) 500 MG TAB PO SCH (10:02)
[2016-11-13] MEDS: Lactobacillus Acidophilu (GG)* 1 CAP CAP PO SCH (10:02)
[2016-11-13] MEDS: TRIAMCINOLONE 0.1% TOPICAL SCH (10:03)
[2016-11-13] MEDS: Docusate CAP* 100 MG PO SCH (10:03)
[2016-11-13] MEDS: Pregabalin CAP(*) 50 MG PO SCH (10:03)
--- NOTE | 2016-11-13 10:03 | PN ---
Subjective Date of Service: 11/13/16 Interval History: Patient seen and examined at bedside. Ms. Morel denies CP, SOB, fever/chills. Feels less itchy today but has been having flare-ups of shingles neuralgia. Patient understands PMRU would be a safe option and states she is willing to go. Family History: Unchanged from Admission Social History: Unchanged from Admission Past Medical History: Unchanged from Admission Objective Active Medications: Acetaminophen (Tylenol Tab*) 650 mg PO Q4H PRN PRN Reason: FEVER/PAIN Calcium Carbonate (Tums*) 500 mg PO TID PRN PRN Reason: DYSPEPSIA Diphenhydramine HCl (Benadryl Iv*) 25 mg IV Q4H PRN PRN Reason: PRURITIS Docusate Sodium (Colace Cap*) 100 mg PO BID [facility] Last Admin: 11/12/16 22:21 Dose: 100 mg Duloxetine HCl (Cymbalta Cap*) 20 mg PO BEDTIME [facility] Last Admin: 11/12/16 22:22 Dose: 20 mg Heparin Sodium (Porcine) (Heparin Flush Port (Ivad)) 5 ml FLUSH DAILY [facility] PRN Reason: Protocol Last Admin: 11/13/16 06:33 Dose: 5 ml Heparin Sodium (Porcine) (Heparin Vial(*)) 5,000 units SUBCUT Q12HR [facility] Last Admin: 11/12/16 22:22 Dose: 5,000 units Sodium Chloride (Ns 0.9% 1000 Ml*) 1,000 mls @ 75 mls/hr IV PER RATE [facility] Last Admin: 11/11/16 21:12 Dose: 75 mls/hr Lactobacillus Rhamnosus (Culturelle*) 1 cap PO DAILY [facility] Last Admin: 11/12/16 07:58 Dose: 1 cap Morphine Sulfate (Morphine Inj (Syringe)*) 2 mg IV Q4H PRN PRN Reason: PAIN Nebivolol (Bystolic Tab (Nf)) 5 mg PO BEDTIME [facility] Ondansetron HCl (Zofran Inj*) 4 mg IV Q4H PRN PRN Reason: NAUSEA/VOMITING Oxycodone/Acetaminophen (Percocet 5/325 Tab*) 1 tab PO Q4H PRN PRN Reason: Pain Last Admin: 11/11/16 09:04 Dose: 1 tab Polyethylene Glycol/Electrolytes (Miralax*) 17 gm PO DAILY PRN PRN Reason: CONSTIPATION Pregabalin (Lyrica Cap(*)) 50 mg PO BID [facility] Last Admin: 11/12/16 22:22 Dose: 50 mg Tramadol HCl (Ultram*) 50 mg PO Q8H PRN PRN Reason: PAIN Last Admin: 11/12/16 15:55 Dose: 50 mg Triamcinolone Acetonide (Triamcinolone Acetonide) 0.1 % TOPICAL TID [facility] Last Admin: 11/12/16 20:12 Dose: 0.1 % Valacyclovir HCl (Valtrex 500 Mg (*)) 500 mg PO DAILY [facility] PRN Reason: Protocol Last Admin: 11/12/16 07:57 Dose: 500 mg Vital Signs 11/12/16 11/12/16 11/12/16 11:53 13:38 14:38 Temperature 98.9 F Pulse Rate 69 Respiratory 16 16 16 Rate Blood Pressure 89/62 (mmHg) O2 Sat by Pulse 88 Oximetry 11/12/16 11/12/16 11/12/16 15:53 15:55 17:55 Temperature 97.9 F Pulse Rate 72 Respiratory 16 16 16 Rate Blood Pressure 96/51 (mmHg) O2 Sat by Pulse 90 Oximetry 11/12/16 11/12/16 11/12/16 20:15 20:32 22:22 Temperature 98.8 F Pulse Rate 74 Respiratory 16 16 16 Rate Blood Pressure 98/49 (mmHg) O2 Sat by Pulse 84 Oximetry 11/13/16 11/13/16 11/13/16 00:10 00:15 00:22 Temperature 98.0 F Pulse Rate 70 Respiratory 18 18 Rate Blood Pressure 89/41 100/56 (mmHg) O2 Sat by Pulse 95 Oximetry 11/13/16 11/13/16 11/13/16 03:57 07:34 09:04 Temperature 98.1 F 98.2 F Pulse Rate 71 69 Respiratory 20 14 16 Rate Blood Pressure 107/54 108/54 (mmHg) O2 Sat by Pulse 94 95 95 Oximetry Oxygen Devices in Use Now: None Appearance: Elderly female, chronically ill appearing, OOB to chair, NAD Eyes: No Scleral Icterus Ears/Nose/Mouth/Throat: Mucous Membranes Moist Neck: NL Appearance and Movements; NL JVP Respiratory: Symmetrical Chest Expansion and Respiratory Effort, Clear to Auscultation Cardiovascular: NL Sounds; No Murmurs; No JVD, RRR Abdominal: NL Sounds; No Tenderness; No Distention Extremities: - - distally nvi Neurological: Alert and Oriented x 3 Lines/Tubes/Other Access: Clean, Dry and Intact Central Line - LCW port Nutrition: Taking PO's Result Diagrams: 11/13/16 06:30 11/13/16 06:30 Assess/Plan/Problems-Billing Assessment: Ms. Morel is an 85 yo female with a PMH of recurrent B-cell lymphoma, HTN, HLD , GERD, and remote hx of breast cancer who presented to the ED on 11/10/16 after a fall and was found to have a right intertrochanteric fracture. - Patient Problems (1) Closed right hip fracture Code(s): S72.001A - FRACTURE OF UNSP PART OF NECK OF RIGHT FEMUR, INIT Comment : POD #2 Management per ortho HH stable Continue PT/OT, PMRU Pain management (2) Chronic pruritus Code(s): L29.9 - PRURITUS, UNSPECIFIED Comment: Improved today Exacerbated by gown and surgery prep Continue prn antihistamines and home triamcinolone cream (3) HTN (hypertension) Code(s): I10 - ESSENTIAL (PRIMARY) HYPERTENSION Comment: Normotensive, hypotensive at times Question if patient may be falling secondary to hypotension Continue nebivolol but move dose to HS, still with hold parameters Hold amlodipine - could probably be discontinued if BP remains soft. (4) HLD (hyperlipidemia) Code(s): E78.5 - HYPERLIPIDEMIA, UNSPECIFIED Comment: Statin intolerance reported by patient Diet controlled (5) Post herpetic neuralgia Code(s): B02.29 - OTHER POSTHERPETIC NERVOUS SYSTEM INVOLVEMENT Comment: Continue duloxetine and pregabalin Secondary to shingles infection in November 2015 (6) B-cell lymphoma Code(s): C85.10 - UNSPECIFIED B-CELL LYMPHOMA, UNSPECIFIED SITE Comment: Port placement on 11/09 with plan for chemotherapy next week Patient follows with Dr. Orourke. Oncology aware of patient's admission. Continue outpatient follow-up (7) Aortic stenosis, moderate Code(s): I35.0 - NONRHEUMATIC AORTIC (VALVE) STENOSIS (8) DVT prophylaxis Comment: SQ heparin SCDs Status and Disposition: Inpatient admission. Discharge to PMRU.
[2016-11-13] MEDS: Heparin VIAL(*) 5000 UNITS/ML VIAL (FIVE THOUSAND) SUBCUT SCH (10:04)
[2016-11-13] MEDS: NEBIVOLOL 5 MG PO SCH (10:24)
--- NOTE | 2016-11-13 10:38 | PN ---
Progress Note - Progress Note Date of Service: 11/13/16 SOAP: Subjective: 85 y/o female s/p gamma nail R hip fx 11/[address] Nicole. H&H stable, VSS overnight. STates itching has subsided with "shingle medication". Pain controlled, increased at night, toleratable during day. Objective: General- Well appearing, sitting comfortably in chair, NAD. MSK- Incision c/d/i, oz in place over right thigh, + DF/PF b/l, PT 2+ b/l , minimal LE edema R leg. + areas of skin irritation along wound, likely due to scratching. Laboratory Results - last 24 hr 11/13/16 11/13/16 06:30 06:30 Hgb 9.1 L Hct 27 L Sodium 138 Potassium 3.8 Chloride 109 Carbon Dioxide 27 Anion Gap 2 BUN 22 Creatinine 0.90 Est GFR ( Amer) 76.3 Est GFR (Non-Af Amer) 59.4 BUN/Creatinine Ratio 24.4 H Glucose 112 H Calcium 8.0 L Vital Signs Temp 98.2 F 11/13/16 07:34 Pulse 69 11/13/16 07:34 Resp 16 11/13/16 10:03 BP 108/54 11/13/16 07:34 Pulse Ox 95 11/13/16 09:04 Intake & Output 11/12/16 11/13/16 11/13/16 18:59 06:59 18:59 Intake Total 1055 580 Output Total 475 400 200 Balance 580 180 -200 Intake: IV Fluids 515 NS 515 IVPB 60 ABX - CEFAZOLIN 60 Oral 480 580 Output: Urine 0 400 200 Smith 475 Other: # Bowel Movements 0 Assessment: 85 y/o female s/p gamma nail R hip fx 11/[address] Nicole. Plan: - DVT prophylaxis- Heparin currently, may DC when more active - Continue PT/ OT - Patient educated on PMRU vs home, advised to go to PMRU which patient was in agreement with. - Follow up with Dr. Nicole within 3-4 weeks for repeat x-rays and evaluation Active Medications Generic Name Dose Route Start Last Admin Trade Name Freq PRN Reason Stop Dose Admin Acetaminophen 650 mg 11/10/16 20:00 Tylenol Tab* PO Q4H PRN FEVER/PAIN Calcium Carbonate 500 mg 11/12/16 11:25 Tums* PO TID PRN DYSPEPSIA Diphenhydramine HCl 25 mg 11/12/16 11:19 Benadryl Iv* IV Q4H PRN PRURITIS Docusate Sodium 100 mg 11/10/16 21:00 11/13/16 10:03 Colace Cap* PO 100 mg BID [facility] Administration Duloxetine HCl 20 mg 11/10/16 22:15 11/12/16 22:22 Cymbalta Cap* PO 20 mg BEDTIME [facility] Administration Heparin Sodium (Porcine) 5 ml 11/11/16 14:00 11/13/16 10:06 Heparin Flush Port (Ivad) FLUSH 5 ml DAILY [facility] Administration Protocol Heparin Sodium (Porcine) 5,000 units 11/12/16 09:00 11/13/16 10:04 Heparin Vial(*) SUBCUT 5,000 units Q12HR [facility] Administration Sodium Chloride 1,000 mls @ 75 mls/hr 11/11/16 19:45 11/11/16 21:12 Ns 0.9% 1000 Ml* IV 75 mls/hr PER RATE [facility] Administration Lactobacillus Rhamnosus 1 cap 11/11/16 09:00 11/13/16 10:02 Culturelle* PO 1 cap DAILY [facility] Administration Morphine Sulfate 2 mg 11/10/16 20:00 Morphine Inj (Syringe)* IV Q4H PRN PAIN Nebivolol 5 mg 11/13/16 21:00 Bystolic Tab (Nf) PO BEDTIME [facility] Ondansetron HCl 4 mg 11/10/16 20:00 Zofran Inj* IV Q4H PRN NAUSEA/VOMITING Oxycodone/Acetaminophen 1 tab 11/10/16 20:00 11/11/16 09:04 Percocet 5/325 Tab* PO 1 tab Q4H PRN Administration Pain Polyethylene Glycol/Electrolytes 17 gm 11/10/16 20:09 Miralax* PO DAILY PRN CONSTIPATION Pregabalin 50 mg 11/10/16 21:00 11/13/16 10:03 Lyrica Cap(*) PO 50 mg BID [facility] Administration Tramadol HCl 50 mg 11/10/16 20:04 11/12/16 15:55 Ultram* PO 50 mg Q8H PRN Administration PAIN Triamcinolone Acetonide 0.1 % 11/11/16 10:57 11/12/16 20:12 Triamcinolone Acetonide TOPICAL 0.1 % TID [facility] Administration Valacyclovir HCl 500 mg 11/12/16 09:00 11/13/16 10:02 Valtrex 500 Mg (*) PO 500 mg DAILY [facility] Administration Protocol
[2016-11-13] MEDS ORDERED: Polyethylene Glycol 3350* 17 GM PACKET PO SCH (10:57)
[2016-11-13] MEDS ORDERED: Magnesium Hydroxide LIQ* 30 ML UDC PO PRN (10:57)
[2016-11-13 12:29] VITALS: BP 109/59
[2016-11-13] MEDS ORDERED: Nebivolol TAB (NF) 5 MG TAB PO SCH (21:00)
--- NOTE | 2016-11-14 11:51 | DS ---
AMENDED REPORT NOW INCLUDES COSIGNER DESIGNATION - ESIGNED BEFORE ADJUSTMENTS CC: Dr. Patricio Orourke; Dr. Nicole; JOSE Carr * MEDICINE DISCHARGE SUMMARY: DATE OF ADMISSION: 11/10/16 DATE OF DISCHARGE: 11/13/16 PRIMARY CARE PHYSICIAN: Dr. Patricio Orourke. PROVIDER: Roni Sykes NP ATTENDING PHYSICIAN: Dr. Mariia Galdamez * (as dictated by Roni Sykes NP). CONSULTING ORTHOPEDIC SURGEON: Dr. Nicole. PRIMARY ONCOLOGIST: Dr. Orourke. PRIMARY CARE PROVIDER: JOSE Carr. PRIMARY DISCHARGE DIAGNOSIS: Right intertrochanteric hip fracture. SECONDARY DISCHARGE DIAGNOSES: 1. Postherpetic neuralgia. 2. Moderate aortic stenosis. 3. Hypertension. 4. Hyperlipidemia. 5. Recurrent B-cell lymphoma. 6. Gastroesophageal reflux disease. 7. Remote history of breast cancer. CURRENT MEDICATIONS: Here in the hospital; 1. Tylenol 650 mg q. 4 hours p.r.n. 2. Calcium carbonate 500 mg b.i.d. p.r.n. 3. Diphenhydramine 25 mg IV q. 4 hours p.r.n. 4. Colace 100 mg b.i.d. 5. Duloxetine 20 mg at bedtime. 6. Heparin 5000 units subcu q. 12 hours. 7. Heparin flush 5 mL daily per protocol. 8. Culturelle 1 capsule daily. 9. Milk of magnesia 30 mL q. 4 hours p.r.n. constipation. 10. Morphine 2 mg IV q. 4 hours p.r.n. 11. Nebivolol 5 mg at bedtime with hold parameters. 12. Zofran 5 IV q. 4 hours p.r.n. 13. Percocet 5/325 one tab q. 4 hours p.r.n. 14. MiraLAX 17 g daily. 15. Lyrica 50 mg b.i.d. 16. Tramadol 50 mg q. 8 hours p.r.n. 17. Triamcinolone cream topical t.i.d. 18. Valacyclovir 500 mg daily. OTHER HOME MEDICATIONS: 1. Ibuprofen 400 mg q. 6 hours p.r.n. 2. Cholecalciferol 5000 units weekly. 3. Amlodipine 10 mg every other day and 5 mg on alternate days. 4. Vitamin B complex 1 tab weekly. HOSPITAL COURSE OF STAY: For full details, please refer to the H and P provided by MALOU Mckeon. In summary, Ms. Morel is an 85-year-old female who presented to the hospital after a fall. The patient unfortunately sustained a right hip fracture. The patient was admitted and surgery occurred the following day on 11/11/16. The patient tolerated surgery well. She has been able to participate in therapy. She was previously independent at home with good functional status. During the patient's stay, the patient has complained of severe pruritus, which was thought to be exacerbated by the laundry here as well as surgical prep that was used for the patient. This has improved with her triamcinolone cream and with home moisturizers. P.r.n. diphenhydramine also has been with given with good effect. The patient has also complained of pain along her left abdomen which she attributes to postherpetic neuralgia following shingles infection in November 2015. She says that this does get better with her duloxetine and Lyrica , which has been continued here. It was noted that the patient was previously on amlodipine and nebivolol at home. In the post operative period, the patient's blood pressures have been notably normotensive and, at times, hypotensive. It does appear that she tends to trend with systolics in the 90s to 100s. We have held her amlodipine since admission, and her blood pressure has remained normotensive and often hypotensive. Following her nebivolol doses, the patient has noted a drop down with systolics in the 80s and 90s that last throughout the day. It may indicate that the patient at home may be having blood pressures that are too low and perhaps some of her falls may be attributed to some orthostasis. Incidentally, I have continued withholding the amlodipine and recommend discontinuing it if the patient's blood pressure continues to follow this trend. As far as her nebivolol, I have continued this with hold parameters, but I have moved it to bedtime to see if we can mitigate any side effects of hypotension while the patient is sleeping. On the day of discharge 11/13/16, the patient is out of bed to chair. She has no acute complaints and feels well. She is in agreement with the plan to go to [facility]. I recognized that this will be beneficial for her, prior to returning home to better regain her strength and continue improving following her surgical interventions for her recent right hip fracture. CONCERNS AT DISCHARGE: Ms. Morel will be discharged to [facility] on 11/13/16. Again recommended that the patient's blood pressure be closely followed and adjustments to medications be made accordingly. DIET: Regular diet. ACTIVITY: As tolerated. CONDITION: Stable. DISPOSITION: To [facility]. TIME SPENT: Time spent on this discharge was approximately 40 minutes. Again, this is only a brief summary of the patient's hospital course of stay. For full details, please refer to the full medical record. If you have any further questions or need further assistance, please feel free to contact me at [phone]. RONI SYKES NP [id number]/[facility] #: [id number] BESSY
== END 2016-11-13 12:30 | DRG 481 ==
LOC: ED 17:01 → SSU 20:00
PROVIDERS: ADMIT Internal Medicine; ATTEND Hospitalist
PROC: 0QH636Z Insertion of Intramedullary Internal Fixation Device into Right Upper Femur, Percutaneous Approach (ICD-10-PCS; principal; 2016-11-10)
DX: S72.141A Displaced intertrochanteric fracture of right femur, initial encounter for closed fracture (principal); C85.10 Unspecified B-cell lymphoma, unspecified site; I35.0 Nonrheumatic aortic (valve) stenosis; K90.41 Non-celiac gluten sensitivity; B02.29 Other postherpetic nervous system involvement; I10 Essential (primary) hypertension; E78.5 Hyperlipidemia, unspecified; K58.9 Irritable bowel syndrome, unspecified; K59.03 Drug induced constipation; T40.605A Adverse effect of unspecified narcotics, initial encounter; Z88.6 Allergy status to analgesic agent; Z88.8 Allergy status to other drugs, medicaments and biological substances; M19.90 Unspecified osteoarthritis, unspecified site; H26.9 Unspecified cataract; Z85.3 Personal history of malignant neoplasm of breast; Z85.828 Personal history of other malignant neoplasm of skin; Z82.3 Family history of stroke; Z80.9 Family history of malignant neoplasm, unspecified; K21.9 Gastro-esophageal reflux disease without esophagitis; W01.0XXA Fall on same level from slipping, tripping and stumbling without subsequent striking against object, initial encounter; Y92.9 Unspecified place or not applicable; L29.9 Pruritus, unspecified; L50.8 Other urticaria; Z79.01 Long term (current) use of anticoagulants
CPT/HCPCS: 36415; 71010; 80048; 80053; 84484; 85014; 85018; 85025; 88184; 88188; 88307; 88333; 88342; 93306; A9270-GY; C1788; J0690; J1100; J1170; J1200; J1642; J1644; J1885; J2001; J2250; J2405; J2704; J3010

== ENCOUNTER 2016-11-13 10:49 | Inpatient (IN) | payer MEDICARE, OTHER ==
[2016-11-13] MEDS ORDERED: Bisacodyl SUPP* 10 MG SUPP PR PRN (11:07)
[2016-11-13] MEDS ORDERED: Magnesium Hydroxide LIQ* 30 ML UDC PO PRN (11:07)
[2016-11-13] MEDS ORDERED: Al Hydrox/Mg Hydrox/Simet LIQ* 30 ML UDC PO PRN (11:07)
[2016-11-13] MEDS ORDERED: Acetaminophen TAB* 325 MG PO PRN (11:07)
[2016-11-13] MEDS ORDERED: Calcium Carbonate CHEW TAB* 500 MG (TUMS) PO PRN (11:20)
[2016-11-13] MEDS ORDERED: oxyCODONE/Acetamin 5/325 MG* TAB PO PRN (11:20)
[2016-11-13] MEDS ORDERED: Triamcinolone 0.1% CREAM (NF) 15 GM TUBE TOPICAL PRN (11:21)
[2016-11-13] MEDS ORDERED: traMADol TAB* 50 MG PO PRN (11:21)
[2016-11-13] MEDS ORDERED: diPHENhydraMINE PO* 25 MG PO PRN (11:23)
[2016-11-13] MEDS ORDERED: TRIAMCINOLONE 0.1% TOPICAL PRN (11:23)
[2016-11-13] MEDS ORDERED: Heparin VIAL(*) 5000 UNITS/ML VIAL (FIVE THOUSAND) SUBCUT SCH (12:00)
--- NOTE | 2016-11-13 14:46 | PMRUTEAM ---
PMRU: Goals Current Status: Physical Therapy: Current Status Bed Mobility Assistance supervision Transfer Moblility Assistance contact guard assist Ambulation Assistance contact guard assist Ambulation Assistive Devices Rolling Walker Stairs Assistance contact guard assist Stairs Recommended Devices One Rail Number of Stairs 6 OCCUPATIONAL THERAPY CURRENT STATUS: Upper body dressing with set up, lower body dressing moderate assistance, bathing minimum assistance, toileting minimum assistance, toilet transfer contact guard. Social Assessment: Lives alone with 13 steps to enter. Daughter is leaving for her home in [place] on 11/16/16 but son will arrive from [place] and plans to stay at least until 11/27/16. Will go home with home services. Goals: PHYSICAL THERAPY INITIAL GOALS: Independent bed mobility; independent transfers and ambulation with rolling walker 150 ft. Independent a flight of stairs with [address]. OCCUPATIONAL THERAPY INITIAL GOALS: Modified independent toileting, bathing, dressing, eating and simple meal prep. Social plan: Home with [facility]. Care Plan: Medication education for self administration, including pain medications. Follow-up with oncology on plan for chemotherapy after discharge. Keep hydrated to prevent urinary tract infection. Monitor skin and control pruritis. Regulate bowels. Enforce safety for home. Medicine Note: Length of Stay: [5 days] Anticipated Discharge Destination: home Tentative Discharge Date: [11/18/2016] Discharged to: [home]
[2016-11-13] MEDS: Pregabalin CAP(*) 50 MG PO SCH (20:00)
[2016-11-13] MEDS: Docusate CAP* 100 MG PO SCH (20:01)
[2016-11-13] MEDS: DULoxetine DR CAP* 20 MG CAP.DR PO SCH (20:01)
[2016-11-13] MEDS: Senna TAB PO SCH (20:03)
[2016-11-13] MEDS: Heparin VIAL(*) 5000 UNITS/ML VIAL (FIVE THOUSAND) SUBCUT SCH (20:04)
--- NOTE | 2016-11-13 20:40 | HP ---
CC: JOSE Carr; Dr. Nicole; Dr. Orourke REHABILITATION ADMISSION: DATE OF ADMISSION: 11/13/16 PRIMARY CARE PROVIDER: JOSE Carr ORTHOPEDIC SURGEON: Dr. Nicole. ONCOLOGIST: Dr. Orourke. REASON FOR ADMISSION: Right intertrochanteric hip fracture. HISTORY OF PRESENT ILLNESS: This is an 85-year-old woman, who was in her usual state of health, on 11/10/16, when she tripped on some shoe laces and fell on her right side. She came to the hospital and was diagnosed with a right intertrochanteric hip fracture. Preoperatively, she had transthoracic echo that showed an ejection fraction of 60% to 65% and moderate aortic stenosis with mild pulmonary hypertension. She also had mild ascending aorta dilatation. She was felt appropriate for surgery and taken to the OR on by Dr. Nicole for gamma nailing of her right hip. She is weightbearing as tolerated precautions. She has recurrent B-cell lymphoma and is followed by Dr. Orourke. A port was placed on 11/09/16 and she is due to start her chemotherapy next week with the first dose being in the hospital. It is unclear what the plans will be for chemotherapy at this point. She had shingles last summer and has postherpetic neuralgia particularly severe in her left side and back. She is chronically on Valtrex as well as uses Lyrica, Cymbalta, and triamcinolone. Prior to admission, she was independent with her ADLs and IADLs and not using any assistive device. With physical therapy, she has required supervision for bed mobility, transfers with contact guard assistance using rolling walker and can ambulate with contact guard assistance up to 40 feet with a rolling walker. With occupational therapy, she has required moderate amount of assistance for lower body dressing and minimal amount of assistance for bathing and contact guard assistance for toileting. She has irritable bowel syndrome and is worried that she has multiple bowel movements in the middle of the night and how she is going to get up in the middle of the night to toilet herself. PAST MEDICAL HISTORY: 1. Recurrent B-cell lymphoma, followed by Dr. Orourke, pending chemotherapy with a left chest port. 2. Hypertension. 3. Hyperlipidemia. 4. GERD. 5. History of breast cancer, status post mastectomy x2. 6. Moderate aortic stenosis. 7. Mild ascending aortic dilatation. 8. Status post partial bowel resection secondary to a mass. 9. Irritable bowel syndrome. MEDICATIONS: 1. Lyrica 50 mg b.i.d. 2. Cymbalta 20 mg q.h.s. 3. Nebivolol 5 mg q. day. 4. Culturelle q. day. 5. Valacyclovir 500 mg q. day. 6. Percocet 5/325 one tablet q.4 hours p.r.n. pain. 7. Tylenol p.r.n. 8. Tums 500 mg t.i.d. p.r.n. 9. Colace 100 mg b.i.d. 10. Heparin 5000 units q.12 hours for DVT prophylaxis. 11. Tramadol 50 mg q.8 hours p.r.n. 12. Triamcinolone 0.1% ointment t.i.d. p.r.n. 13. Benadryl p.r.n. 14. Heparin flush to her port q. day. ALLERGIES: She has STATIN intolerance and GLUTEN intolerance. Aspirin, Erythromycin, Iron, Atenolol, Acebutolol, Gluten, Carvedilol, Penicillin FAMILY HISTORY: Noncontributory. SOCIAL HISTORY: She lives alone. Her daughter is visiting from [place], but will leave Wednesday night. Her son will be coming from [place] next week to help as well. No smoking. Occasional alcohol. Her son, Otis Morel, is her health care proxy. There are 13 steps to enter her home and home has multiple levels, but she can stay on one level. REVIEW OF SYSTEMS: See history of present illness and past medical history. The remainder of system review is completed. No other significant findings. PHYSICAL EXAMINATION GENERAL: Well developed, well nourished. Appearing stated age. VITAL SIGNS: Temperature 98.2, pulse 69, respirations 14, oxygenation 95% on room air, blood pressure 108/54. HEENT: Normocephalic, atraumatic. Oropharynx clear with poor dentition and missing multiple teeth. LUNGS: Clear to auscultation bilaterally. HEART: Regular rate and rhythm. ABDOMEN: Active bowel sounds. Soft, nontender, nondistended. EXTREMITIES: No clubbing, cyanosis, or edema. MUSCULOSKELETAL: She has functional range of motion of all her major joints with limited testing of the right hip and knee due to her recent fracture. NEUROLOGIC: She has 5/5 strength in bilateral upper and lower extremities with pain limited testing of the right hip and knee. Sensation is intact in all 4 extremities. MENTAL STATUS: Alert and oriented x3. SKIN: She has multiple ecchymoses especially around the site where she has had her port and excoriations on her arms and legs. Her oz are clean, dry, and intact. There is a dressing on her right lower leg. She has some Steri- Strips from the procedure to put in the port on her left neck and upper chest. LABORATORY DATA: Hemoglobin today is 9.1, hematocrit 27 down from 9.9 and 30 yesterday. White blood cell count on 11/12/16 was 10.3, platelets 166. On , P3 is normal. IMPRESSION: An 85-year-old woman with right hip fracture and recurrent B-cell lymphoma. She will be admitted to [facility] so she can return to independent living. PLAN: 1. Right hip fracture, status post gamma nail. Follow up with Dr. Nicole as needed. Pain control as needed. 2. DVT prophylaxis. Continue with heparin subcutaneously and discuss a transition to Coumadin or lovenox for home 3. Recurrent B-cell lymphoma. Follow up with Oncology regarding her plans for chemotherapy. Continue with port care. 4. Hypertension. She is off her amlodipine and her blood pressure seems quite soft. Continue nebivolol and monitor her vitals. 5. Irritable bowel syndrome. Continue with Culturelle and bowel meds as needed. 6. Pruritus. Continue with Lyrica, Cymbalta, Benadryl, and triamcinolone. 7. Acute postoperative anemia. Continue to follow her CBC. 8. Impaired self-care. She will be seen by Occupational Therapy for ADL training and equipment evaluation. 9. Impaired mobility. She will be seen by Physical Therapy for bed mobility, transfer and gait training especially doing 13 stairs. Family training as appropriate. 10. Advanced directives. I discussed this with her, her daughter and her son- in-law who were in the room. She does not desire to be resuscitated. A MOLST was completed. If she cannot make decisions for herself, her son, Otis Morel , is her healthcare proxy. 11. Estimated length of stay: 5 to 7 days, then return home. [id number]/[facility] #: [id number] BESSY
[2016-11-14 06:52] LABS: Hematocrit 31 % (35-47); Hemoglobin 10.1 g/dl (12.0-16.0); Mean Corpuscular HGB Conc 33 g/dl (31-36); Mean Corpuscular Hemoglobin 33 pg (27-31); Mean Corpuscular Volume 99 fL (80-97); Mean Platelet Volume 9 um3 (7.4-10.4); Red Cell Distribution Width 15 % (10.5-15); White Blood Count 7.7 10^3/ul (3.5-10.8)
[2016-11-14 07:07] LABS: BUN/Creatinine Ratio 24.6 (8-20); Calcium 8.4 mg/dL (8.6-10.3); EGFR African American 129.3 (>60); EGFR Non-African American 100.6 (>60); Globulin 2.6 g/dL (2-4); Potassium 3.8 mmol/L (3.5-5.0); Total Bilirubin 0.7 mg/dL (0.2-1.0); Total Protein 5.6 g/dL (6.4-8.9)
[2016-11-14] MEDS ORDERED: Nebivolol TAB (NF) 2.5 MG TAB PO SCH (09:00)
[2016-11-14] MEDS: Docusate CAP* 100 MG PO SCH ×2 (09:56→21:29)
[2016-11-14] MEDS: Lactobacillus Acidophilu (GG)* 1 CAP CAP PO SCH (09:56)
[2016-11-14] MEDS: DULoxetine DR CAP* 20 MG CAP.DR PO SCH (09:56)
[2016-11-14] MEDS: Pregabalin CAP(*) 50 MG PO SCH ×2 (09:57→21:29)
[2016-11-14] MEDS: Heparin VIAL(*) 5000 UNITS/ML VIAL (FIVE THOUSAND) SUBCUT SCH ×2 (10:01→21:32)
[2016-11-14] MEDS: ValACYclovir (*) 500 MG TAB PO SCH (13:39)
[2016-11-14] MEDS: Warfarin TAB(*) 3 MG PO SCH (16:55)
[2016-11-14] MEDS: Senna TAB PO SCH (21:29)
[2016-11-15] MEDS: Docusate CAP* 100 MG PO SCH ×2 (09:30→20:06)
[2016-11-15] MEDS: ValACYclovir (*) 500 MG TAB PO SCH (09:30)
[2016-11-15] MEDS: Lactobacillus Acidophilu (GG)* 1 CAP CAP PO SCH (09:30)
[2016-11-15] MEDS: Heparin VIAL(*) 5000 UNITS/ML VIAL (FIVE THOUSAND) SUBCUT SCH ×2 (09:30→20:08)
[2016-11-15] MEDS: Pregabalin CAP(*) 50 MG PO SCH ×2 (09:30→20:09)
[2016-11-15] MEDS: DULoxetine DR CAP* 20 MG CAP.DR PO SCH (09:30)
[2016-11-15] MEDS: NEBIVOLOL 5 MG PO SCH ×2 (09:31→09:39)
[2016-11-15] MEDS: Nystatin SUSPENSION* 100000 UNITS/ML 5 ML UDC PO SCH ×3 (14:18→20:08)
[2016-11-15] MEDS: Warfarin TAB(*) 3 MG PO SCH (17:05)
[2016-11-15] MEDS: Senna TAB PO SCH (20:10)
[2016-11-16] MEDS: ValACYclovir (*) 500 MG TAB PO SCH (09:17)
[2016-11-16] MEDS: Docusate CAP* 100 MG PO SCH (09:18)
[2016-11-16] MEDS: DULoxetine DR CAP* 20 MG CAP.DR PO SCH (09:19)
[2016-11-16] MEDS: NEBIVOLOL 5 MG PO SCH (09:19)
[2016-11-16] MEDS: Lactobacillus Acidophilu (GG)* 1 CAP CAP PO SCH (09:19)
[2016-11-16] MEDS: Pregabalin CAP(*) 50 MG PO SCH ×2 (09:20→21:22)
[2016-11-16] MEDS: Heparin VIAL(*) 5000 UNITS/ML VIAL (FIVE THOUSAND) SUBCUT SCH ×2 (09:22→21:25)
[2016-11-16] MEDS: Nystatin SUSPENSION* 100000 UNITS/ML 5 ML UDC PO SCH ×4 (09:23→21:23)
[2016-11-16] MEDS ORDERED: Senna TAB PO PRN (13:49)
[2016-11-16] MEDS ORDERED: Docusate CAP* 100 MG PO PRN (13:49)
[2016-11-16] MEDS ORDERED: Warfarin TAB(*) 5 MG PO SCH (17:00)
[2016-11-17] MEDS: Pregabalin CAP(*) 50 MG PO SCH ×2 (09:34→20:52)
[2016-11-17] MEDS: Lactobacillus Acidophilu (GG)* 1 CAP CAP PO SCH (09:34)
[2016-11-17] MEDS: Nystatin SUSPENSION* 100000 UNITS/ML 5 ML UDC PO SCH ×4 (09:35→21:53)
[2016-11-17] MEDS: NEBIVOLOL 5 MG PO SCH (09:35)
[2016-11-17] MEDS: ValACYclovir (*) 500 MG TAB PO SCH (09:36)
[2016-11-17] MEDS: Heparin VIAL(*) 5000 UNITS/ML VIAL (FIVE THOUSAND) SUBCUT SCH (09:36)
[2016-11-17] MEDS: DULoxetine DR CAP* 20 MG CAP.DR PO SCH (09:42)
--- NOTE | 2016-11-17 12:43 | PMRUTEAM ---
RU: Goals Current Status: Nursing: Current Status Skin Deviations [Generalized] Other Skin Deviations [Right Hip] Incision Skin Deviations [Right Lateral Abrasion Knee] Skin Deviations [Left Upper Other Chest] Skin Deviation Description [ scabs all over Generalized] Skin Deviation Description [ incisions x3 intact with clips and open to air Right Hip] Skin Deviation Description [ healing well. left open to air Right Lateral Knee] Skin Deviation Description [ port intact Left Upper Chest] Bladder Current Status voiding. no incontinence Bowel Current Status refused colace this am Nutrition Current Status appetite adequate Medication Current Status needs reinforcement. declined to take bystolic this am Physical Therapy: Current Status Bed Mobility Assistance Supervision Transfer Moblility Assistance Supervision Transfer/Bed Mobility Rolling Walker Recommended Devices Ambulation Assistance Supervision Ambulation Assistive Devices Rolling Walker Number of Feet Patient 150' Ambulated Stairs Assistance supervision Stairs Recommended Devices 1 rail Number of Stairs 12 Occupational Therapy: Current Status Upper Body Dressing Supervision Lower Body Dressing Supervision Lower Body Dressing Progress FWW, AE Bathing Supervision Bathing Progress FWW Toileting Supervision Toileting Progress FWW Toilet Transfer Supervision Toilet Transfer Progress FWW Shower Transfer Progress refuses Eating Supervision Eating Progress set-up Rec Therapy: Current Status Summary of Assessment and RT assessment complete and pt. is aware of Clinical Impression services. Pt. is talkative in conversation and open to continued visits. Pt. visits with family in the afternoon. Treatment Goals Pt. will engage in leisure activities while on the unit. Treatment Plan Provide RT services and encourage involvement. Social Work: Current Status Discharge Plan return home with home care svs and family support Potential for Family Training pt's son may be available for family training Anticipated Discharge Home Destination Discharge With VNS and family support Nutrition: Current Status Monitoring Per nutrition assessment 11/14: Pt with PMH significant for recurrent B-cell lymphoma, currently admitted to the [facility] s/p OR on 11/11 for R hip fracture. Visited pt and pt's daughter this afternoon. Pt reported that she was feeling well but tried due to physical therapy. Pt endorsed a good appetite, noted intake of 75-100% of meals. Pt currently ordered for a gluten free diet. Pt is choosing preferences per menu. Pt denied nausea/vomiting or difficulty swallowing. Pt did note that she has some difficulty chewing due to missing teeth. Pt denied need for a soft texture diet, however when pt orders vegetables they are cooked soft per her request. Will monitor tolerance. Per chart, no skin breakdown. BMs 11/14 -11/16. Labs reviewed; electrolytes WNL, glucose: 133. Will monitor. Goals: Physical Therapy: Updated Goals Independent bed mobility, transfers, gait and stairs. Rolling walker. Occupational Therapy: Initial Goals Goals to be Completed in (Days 5 ) Upper Body Bathing Routine Independent Lower Body Bathing Routine Modified Independent with Upper Body Dressing Routine Independent Lower Body Dressing Routine Modified Independent with Toilet Hygeine and Clothing Modified Independent with Management Routine Toilet Transfer Routine Modified Independent with Functional Transfers for ADL Modified Independent with Grooming Routine Independent Feeding Routine Independent Nursing: Goals Bladder Goal independent Bowel Goal last bm 11/16/16 Nutrition Goal 100% of all meals eaten Medication Goal supervision with medications Nutrition: Goals Intervention Goals 1. Pt will tolerate diet w/o s/sx of difficulty chewing 2. Adequate PO intake to maintain weight/prevent loss of lean body mass 3. Pt will demonstrate understanding of coumadin/ vitamin K interaction prior to dc Social Work: Goals Discharge Plan return home with home care svs and family support Potential for Family Training pt's son may be available for family training Anticipated Discharge Home Destination Discharge With VNS and family support Care Plan: Care Plan ADL's - Improve/Maintain Start: 11/17/16 07:18 Freq: DAILY Status: Active Target: Activity Type Activity Date Activity User E-Sign Co-Sign Detail Recorded Client Recorded Date Recorded By Document 11/16/16 16:25 [id number] 11/17/16 07:20 [id number] 11/16/16 16:25 PMRU Outcome: ADL's/ADL Transfers Orders/Interventions Occupational Therapy Evaluation & Treatment Device Yes Patient to receive OT 5x/wk for 60-120 Therex min/day Self Care Management Group Therapy Neuromuscular ReEducation UE/LE ADL's with Assist Yes: mod I ADL Transfers with Assist Yes: mod I Toileting: Transfers,Clothing Management Yes: mod I ,Hygeine w/Assist Light Kitchen/Laundry w/Assist No Progression Toward Outcome/Goals Progressing Outcome/Goals Met Pt progressing well and using AE for RLE. DVT Prophylaxis- Improve/Maintain Start: 11/13/16 22:41 Freq: DAILY Status: Active Target: Activity Type Activity Date Activity User E-Sign Co-Sign Detail Recorded Client Recorded Date Recorded By Document 11/17/16 10:39 [id number] 11/17/16 10:41 [id number] 11/17/16 10:39 PMRU Outcome: DVT Prophylaxis Outcome/Goals Remains Free of DVT Demonstrates Knowledge of DVT Prevention/ Treatment TEDS Stockings on Every AM, Off at HS Progression Toward Outcome/Goals Progressing Outcome/Goals Met Comment patient compliant with having heparin admininstered this am Discharge Planning - Improve/Maintain Start: 11/13/16 22:41 Freq: DAILY Status: Active Target: Activity Type Activity Date Activity User E-Sign Co-Sign Detail Recorded Client Recorded Date Recorded By Document 11/16/16 11:12 [id number] 11/16/16 11:13 [id number] 11/16/16 11:12 PMRU Outcome: Discharge Planning Identify Patient Needs yes Update Patient Family 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 Outcome/Goals Demonstrates Understanding of Discharge Plan Homecare Referral - See Comment Progression Toward Outcome/Goals Progressing Education-Improve/Maintain Start: 11/13/16 22:41 Freq: DAILY Status: Active Target: Activity Type Activity Date Activity User E-Sign Co-Sign Detail Recorded Client Recorded Date Recorded By Document 11/17/16 10:39 [id number] 11/17/16 10:41 [id number] 11/17/16 10:39 PMRU Outcome: Education Outcome/Goals Demonstrate/ Verbalize Understanding of Written Discharge Instructions Demonstrates Skills Encourage Questions Progression Toward Outcome/Goals Progressing Mobility- Improve/Maintain Start: 11/13/16 15:02 Freq: DAILY Status: Active Target: Activity Type Activity Date Activity User E-Sign Co-Sign Detail Recorded Client Recorded Date Recorded By Document 11/14/16 17:15 [id number] 11/14/16 17:16 [id number] 11/14/16 17:15 PMRU Outcome: Mobility Physical Therapy Evaluation and Yes Treatment Activity OOB with Assistance Yes WBAT Yes Device Yes Assistance Yes Patient to be seen 5x/wk for 60-120 min/ Therex day for: Mobility Training Gait Training Balance Other Therapy Comment Stairs Outcome/Goals Maintain/ Achieve Baseline Mobility Status Improve Mobility Status Demonstrates Proper Use of Assistive Devices Free from Complications of Immobility Progression Toward Outcome/Goals Progressing Bed Mobility Yes: Independent Transfers Yes: Modified independent with RW Gait x ft Yes: Modified independent 150 ' with RW Up/Down Stairs Yes: Independent 13 steps 1 railing With HEP Yes: Independent Pain/Comfort- Improve/Maintain Start: 11/13/16 22:41 Freq: DAILY Status: Active Target: Activity Type Activity Date Activity User E-Sign Co-Sign Detail Recorded Client Recorded Date Recorded By Document 11/17/16 10:39 [id number] 11/17/16 10:41 [id number] 11/17/16 10:39 PMRU Outcome: Pain/Comfort Outcome/Goals Demonstrates Knowledge and Use of Available Comfort Measures Achieves Acceptable Comfort/Pain Level as Determined by Patient/Condit Maintain Comfort Level Allowing Patient to Fully Participate in Rehab Progression Toward Outcome/Goals Progressing Outcome/Goals Met Comment routine lyrica given Respiratory - Improve/Maintain Start: 11/13/16 22:41 Freq: DAILY Status: Active Target: Activity Type Activity Date Activity User E-Sign Co-Sign Detail Recorded Client Recorded Date Recorded By Document 11/17/16 10:39 [id number] [employer]-ExactFlat 11/17/16 10:41 [id number] 11/17/16 10:39 PMRU Outcome: Respiratory Does Patient Have a Trach No Outcome/Goals Maintain/ Improve O2 Sat per MD Order Maintain/ Improve Baseline Respiratory Status Maintain/ Improve Activity Tolerance Prevent Pneumonia/ Atelectasis Progression Toward Outcome/Goals Progressing Outcome/Goals Met Comment using incentive spirometer on her own Safety- Improve/Maintain Start: 11/13/16 22:41 Freq: DAILY Status: Active Target: Activity Type Activity Date Activity User E-Sign Co-Sign Detail Recorded Client Recorded Date Recorded By Document 11/17/16 10:39 [id number] [employer]-ExactFlat 11/17/16 10:41 [id number] 11/17/16 10:39 PMRU Outcome: Safety Outcome/Goals Remain Free of Injury or Harm Cooperates with Safety Measures for Least Restrictive Environment Prevent Falls/ Injury Progression Toward Outcome/Goals Progressing Skin- Improve/Maintain Start: 11/13/16 22:41 Freq: DAILY Status: Active Target: Activity Type Activity Date Activity User E-Sign Co-Sign Detail Recorded Client Recorded Date Recorded By Document 11/17/16 10:39 [id number] [employer]-C14 11/17/16 10:41 [id number] 11/17/16 10:39 PMRU Outcome: Skin Skin Risk Level Medium Skin Orders Heels Off Bed Outcome/Goals Maintain/ Improve Skin Intergrity Free from Decubitus Surgical Incisions Healing Progression Toward Outcome/Goals Progressing Medicine Note: Length of Stay: [1 day] Anticipated Discharge Destination: Home Tentative Discharge Date: [11/18/16] Discharged to: [home]
[2016-11-17] MEDS: Calcium Carbonate CHEW TAB* 500 MG (TUMS) PO PRN ×2 (14:51→20:53)
[2016-11-17] MEDS ORDERED: Enoxaparin(*) 30 MG/0.3 ML SYR SUBCUT SCH (21:00)
[2016-11-18 06:44] VITALS: BP 120/70
[2016-11-18] MEDS: DULoxetine DR CAP* 20 MG CAP.DR PO SCH (08:22)
[2016-11-18] MEDS: ValACYclovir (*) 500 MG TAB PO SCH (08:22)
[2016-11-18] MEDS: Lactobacillus Acidophilu (GG)* 1 CAP CAP PO SCH (08:22)
[2016-11-18] MEDS: Pregabalin CAP(*) 50 MG PO SCH (08:23)
[2016-11-18] MEDS: Nystatin SUSPENSION* 100000 UNITS/ML 5 ML UDC PO SCH (08:23)
[2016-11-18] MEDS: NEBIVOLOL 5 MG PO SCH (08:24)
--- NOTE | 2016-11-19 04:09 | DS ---
CC: JOSE Carr; Dr. Nicole; Dr. Orourke REHABILITATION DISCHARGE SUMMARY: DATE OF ADMISSION: 11/13/16 DATE OF DISCHARGE: 11/18/16 PRIMARY CARE PROVIDER: JOSE Carr ORTHOPEDIC SURGEON: Dr. Nicole. ONCOLOGY: Dr. Orourke. REASON FOR ADMISSION: Right hip fracture. HISTORY OF PRESENT ILLNESS: For full details of her acute hospitalization leading up to her admission, please see the note dictated by myself on 11/13/16. HOSPITAL COURSE: During her time on the [facility], she remained medically stable. She participated well with physical therapy and at the time of discharge is independent, ambulating with a rolling walker 150 feet. She is independent with bed mobility and transfers. She is also able to ascend 12 steps with one rail. She also participated well with occupational therapy, and at the time of discharge is independent with dressing using adaptive equipment, grooming using adaptive equipment, bathing using adaptive equipment, and toileting using adaptive equipment. Her son has come in from [place] to assist her at discharge as needed. She needed some triamcinolone topically for hemorrhoids, but she was using that already at home. She did develop thrush on 11/15/16, but that responded very quickly to nystatin swish and swallow and she will not be going home with that. Initially we attempted to transition her to Coumadin for DVT prophylaxis, but her INR never moved and so the decision was made on 05/05 to instead have her go home with Lovenox 30 mg q.24 hours for the next 2 weeks for DVT prophylaxis after her hip fracture. Her plans for chemotherapy have been put on hold for her recurrent B-cell lymphoma. She already has a port in place in her left chest and the needle was removed. She is to follow up with Dr. Orourke tomorrow. DISCHARGE CONDITION: Good. DISCHARGE DISPOSITION: Home with family support. DISCHARGE MEDICATIONS: 1. Triamcinolone 0.1% ointment apply topically t.i.d. p.r.n. 2. Enoxaparin 30 mg q.24 hours subcutaneously for DVT prophylaxis for 14 more days. 3. Vitamin B complex 1 tablet daily. 4. Vitamin D3 1 tablet weekly. 5. Probiotic 1 per day. 6. Acetaminophen 1000 mg q.6 hours p.r.n. pain. 7. Bystolic 5 mg daily. 8. Duloxetine 20 mg daily. 9. Valacyclovir 50 mg daily. 10. Lyrica 50 mg b.i.d. She may restart aspirin 81 mg daily once she is done the Lovenox. DISCHARGE DIAGNOSES: 1. Right hip fracture, status post ORIF. 2. Recurrent B-cell lymphoma. 3. Hypertension. 4. Posthepatic neuralgia. 5. Acute postoperative anemia. 6. Thrush. FOLLOWUP: 1. She is to follow up with Dr. Orourke on 11/19/16 at 10:40 in the morning. 2. Follow up with Dr. Nicole in the next month. 3. Follow up with Kevin Holliday in the next month. 4. A referral has been sent to visiting nurse services for home care and staple removal between post-op days 12-14. DISCHARGE CONDITION: Good. DISCHARGE DISPOSITION: Home with family support. [id number]/[facility] #: [id number] MTDD
== END 2016-11-18 10:15 | disposition home health service (06) | DRG 560 ==
LOC: PMRU 12:32
PROVIDERS: ADMIT Physical Medicine & Rehabilitation; ATTEND Physical Medicine & Rehabilitation
PROC: F07Z5ZZ Bed Mobility Treatment (ICD-10-PCS; principal; 2016-11-13)
PROC: F07Z9ZZ Gait Training/Functional Ambulation Treatment (ICD-10-PCS; 2016-11-13)
PROC: F07Z8ZZ Transfer Training Treatment (ICD-10-PCS; 2016-11-13)
PROC: F08Z0ZZ Bathing/Showering Techniques Treatment (ICD-10-PCS; 2016-11-13)
PROC: F08Z1ZZ Dressing Techniques Treatment (ICD-10-PCS; 2016-11-13)
PROC: F08Z3ZZ Feeding/Eating Treatment (ICD-10-PCS; 2016-11-13)
DX: S72.141D Displaced intertrochanteric fracture of right femur, subsequent encounter for closed fracture with routine healing (principal); C85.10 Unspecified B-cell lymphoma, unspecified site; B37.0 Candidal stomatitis; I27.2 Other secondary pulmonary hypertension; B02.29 Other postherpetic nervous system involvement; W18.09XD Striking against other object with subsequent fall, subsequent encounter; I35.0 Nonrheumatic aortic (valve) stenosis; I10 Essential (primary) hypertension; E78.5 Hyperlipidemia, unspecified; K21.9 Gastro-esophageal reflux disease without esophagitis; I77.810 Thoracic aortic ectasia; K58.9 Irritable bowel syndrome, unspecified; Z79.1 Long term (current) use of non-steroidal anti-inflammatories (NSAID); Z79.01 Long term (current) use of anticoagulants; Z79.899 Other long term (current) drug therapy; Z88.6 Allergy status to analgesic agent; Z88.1 Allergy status to other antibiotic agents; Z88.0 Allergy status to penicillin; Z88.8 Allergy status to other drugs, medicaments and biological substances; Z91.018 Allergy to other foods; K64.9 Unspecified hemorrhoids
CPT/HCPCS: 36415; 80053; 85025; 85610; A9270-GY; J1642; J1644; J1650

== ENCOUNTER 2017-01-18 17:36 | Inpatient (IN) | payer MEDICARE, OTHER ==
[2017-01-18] MEDS ORDERED: Acetaminophen TAB* 325 MG PO ONE (18:05)
[2017-01-18] MEDS ORDERED: NS 0.9% 1000 ML* 1,000 ML IV ONE ×2 (18:05→19:09)
[2017-01-18 18:51] LABS: Hematocrit 39 % (35-47); Hemoglobin 12.8 g/dl (12.0-16.0); Mean Corpuscular HGB Conc 33 g/dl (31-36); Mean Corpuscular Hemoglobin 31 pg (27-31); Mean Corpuscular Volume 95 fL (80-97); Mean Platelet Volume 8 um3 (7.4-10.4); Red Blood Count 4.09 10^6/ul (4.0-5.4); Red Cell Distribution Width 17 % (10.5-15); White Blood Count 8.1 10^3/ul (3.5-10.8)
[2017-01-18] MEDS ORDERED: Adenosine* 3 MG/ML VIAL IV PUSH ONE ×2 (19:01→19:04)
[2017-01-18] MEDS ORDERED: Adenosine* 3 MG/ML VIAL ONE (19:02)
[2017-01-18 19:05] LABS: Troponin I 0.03 ng/mL (<0.04)
[2017-01-18 19:08] LABS: BUN/Creatinine Ratio 13.4 (8-20); C Reactive Protein 72.81 mg/L (< 5.00); Calcium 8.6 mg/dL (8.6-10.3); EGFR African American 59.2 (>60); Globulin 2.9 g/dL (2-4); Potassium 3.8 mmol/L (3.5-5.0); Total Bilirubin 1.1 mg/dL (0.2-1.0); Total Protein 5.9 g/dL (6.4-8.9)
[2017-01-18] MEDS ORDERED: Levofloxacin 750 MG IVPREMIX(* 750 MG/150 ML BAG IVPB ONE (19:09)
--- NOTE | 2017-01-18 19:19 | RAD ---
INDICATION: Fall COMPARISON: Most recent comparison chest x-rays dated November 10, 2016 TECHNIQUE: Single AP portable view of the chest was obtained. FINDINGS: Image quality is compromised due to the relative inferiority of a portable chest x-ray. The patient's left internal jugular vein Mediport terminates at the superior vena cava unchanged from the prior radiograph. The heart and mediastinum exhibit normal size and contour. There is atherosclerotic calcification overlying the arch of the aorta. The lungs are grossly clear. There is no evidence of a large pleural effusion. Visualized bones are normal for the patient's age. IMPRESSION: No radiographic evidence for acute cardiopulmonary abnormality on this portable chest x-ray.
[2017-01-18] MEDS ORDERED: Docusate CAP* 100 MG PO PRN (20:06)
[2017-01-18] MEDS ORDERED: Ondansetron INJ* 2 MG/ML VIAL IV PRN (20:06)
[2017-01-18] MEDS ORDERED: Acetaminophen TAB* 325 MG PO PRN (20:06)
--- NOTE | 2017-01-18 21:19 | ED ---
Nereida Correa Nilda, scribed for Rojelio Pulido MD on 01/18/17 at 1901 . Adult Trauma - HPI Summary HPI Summary: This patient is an 86 year old F BIBA presenting to [facility] [place] accompanied by son s/ p unwitnessed fall down a flight of stairs at 1700 today (1 hour ago). The patient rates the pain 0/10 in severity. Patient has cough and fever. She denies neck pain and pain from fall. PMHx includes hip fracture (months ago). Per nurse assessment, patient is a poor historian and does not know how she fell. - History of Current Complaint Chief Complaint: EDSyncope Stated Complaint: FALL Time Seen by Provider: 01/18/17 17:53 Hx Obtained From: Patient, Medical Records - nurse assessment Mechanism of Injury: Fall Onset/Duration: Started Hours Ago Current Severity: None Pain Intensity: 0 Pain Scale Used: 0-10 Numeric Associated Signs & Symptoms: Positive: Cough, Fever - Additional Pertinent History Primary Care Physician: DEVANTE - Allergy/Home Medications Allergies/Adverse Reactions: Allergies Allergy/AdvReac Type Severity Reaction Status Date / Time Gluten Meal Allergy Severe ABD PAIN, Verified 11/09/16 10:50 DIARRHEA Aspirin Allergy See Comment Verified 11/09/16 10:50 Carvedilol Allergy Unknown Verified 11/09/16 10:50 Reaction Details Penicillins Allergy See Comment Verified 11/23/16 13:06 Acebutolol AdvReac Stomach Verified 11/23/16 13:06 Cramps Atenolol AdvReac See Comment Verified 11/23/16 13:06 Erythromycin AdvReac See Comment Verified 11/09/16 10:50 Iron AdvReac See Comment Verified 11/09/16 10:50 Metoprolol AdvReac See Comment Verified 11/23/16 13:06 Propranolol AdvReac See Comment Verified 11/23/16 13:06 PMH/Surg Hx/FS Hx/Imm Hx Endocrine/Hematology History: Reports: Other Endocrine/Hematological Disorders - enlarged lymph nodes Denies: Hx Diabetes Cardiovascular History: Reports: Hx Hypercholesterolemia, Hx Hypertension Denies: Hx Pacemaker/ICD GI History: Reports: Hx Gastroesophageal Reflux Disease, Hx Irritable Bowel, Other GI Disorders - eats soft food, has hemorrhoids History: Denies: Hx Renal Disease, Other Problems/Disorders Musculoskeletal History: Reports: Hx Arthritis - unsure where, Hx Tendonitis - shoulders Denies: Hx Osteoporosis Sensory History: Reports: Hx Cataracts - natanael, Hx Contacts or Glasses, Hx Hearing Problem Denies: Hx Hearing Aid Opthamlomology History: Reports: Hx Cataracts - natanael, Hx Contacts or Glasses Neurological History: Denies: Other Neuro Impairments/Disorders Psychiatric History: Reports: Hx Anxiety Denies: Hx Panic Disorder - Cancer History Cancer Type, Location and Year: Breast CA bilateral. lymphoma- sm. bowel ca. skin ca Hx Chemotherapy: Yes - Surgical History Surgery Procedure, Year, and Place: surgical intervention for sm. [place] [facility] [place] bil[place]. radical mastectomy [place] [place] Hx Anesthesia Reactions: No Infectious Disease History: Yes Infectious Disease History: Reports: Hx Shingles - Currently Denies: History Other Infectious Disease, Traveled Outside the [place] in Last 30 Days - Family History Known Family History: Positive: Other - stroke, CA, shingles Negative: Cardiac Disease, Hypertension, Diabetes - Social History Alcohol Use: None Alcohol Amount: sip quentro 1-2 x per week Hx Substance Use: No Substance Use Type: Reports: None Hx Tobacco Use: No Smoking Status (MU): Never Smoked Tobacco Review of Systems Positive: Fever Positive: Cough Positive: Other - negative neck pain and pain from fall Psychological: Other - Fall All Other Systems Reviewed And Are Negative: Yes Physical Exam Triage Information Reviewed: Yes Vital Signs On Initial Exam: Initial Vitals Temp Pulse Resp BP Pulse Ox 103.0 F 122 18 129/83 96 01/18/17 17:45 01/18/17 17:45 01/18/17 17:45 01/18/17 17:45 01/18/17 17:45 Vital Signs Reviewed: Yes Appearance: Positive: Well-Appearing, No Pain Distress Skin: Positive: Warm, Skin Color Reflects Adequate Perfusion, Dry Head/Face: Positive: Normal Head/Face Inspection Eyes: Positive: Normal ENT: Positive: Normal ENT inspection Neck: Positive: Supple, Nontender Respiratory/Lung Sounds: Positive: Clear to Auscultation, Breath Sounds Present Cardiovascular: Positive: Tachycardia Abdomen Description: Positive: Nontender, Soft Bowel Sounds: Positive: Present Musculoskeletal: Positive: Normal, Other - Nontender Neurological: Positive: Normal Psychiatric: Positive: Normal, Affect/Mood Appropriate Diagnostics - Vital Signs Vital Signs Temp Pulse Resp BP Pulse Ox 01/18/17 18:34 96 01/18/17 17:45 103.0 F 122 18 129/83 96 - Laboratory Lab Results: Lab Results 01/18/17 Range/Units 18:25 WBC 8.1 (3.5-10.8) 10^3/ul RBC 4.09 (4.0-5.4) 10^6/ul Hgb 12.8 (12.0-16.0) g/dl Hct 39 (35-47) % MCV 95 (80-97) fL MCH 31 (27-31) pg MCHC 33 (31-36) g/dl RDW 17 H (10.5-15) % Plt Count 165 (150-450) 10^3/ul MPV 8 (7.4-10.4) um3 Neut % (Auto) 86.3 H (38-83) % Lymph % (Auto) 4.2 L (25-47) % [place] % (Auto) 6.3 (1-9) % Eos % (Auto) 2.5 (0-6) % Baso % (Auto) 0.7 (0-2) % Absolute Neuts (auto) 7.0 (1.5-7.7) 10^3/ul Absolute Lymphs (auto) 0.3 L (1.0-4.8) 10^3/ul Absolute Monos (auto) 0.5 (0-0.8) 10^3/ul Absolute Eos (auto) 0.2 (0-0.6) 10^3/ul Absolute Basos (auto) 0.1 (0-0.2) 10^3/ul Absolute Nucleated RBC 0 10^3/ul Nucleated RBC % 0 Result Diagrams: 01/18/17 18:25 01/18/17 18:25 Lab Statement: Any lab studies that have been ordered have been reviewed, and results considered in the medical decision making process. - Radiology CXR Radiology Interpretation Completed By: Radiologist - No radiographic evidence for acute cardiopulmonary abnormality on this protable chest xray. ED physician has reviewed this radiology report and agrees. - EKG 1828 Cardiac Rate: Tachycardia - 115 bpm EKG Rhythm: Sinus Tachycardia EKG Interpretation: baseline wander, LVH 1907 Cardiac Rate: Tachycardia - 114 bpm EKG Rhythm: Sinus Tachycardia EKG Comparison: No Significant Change - from 1827 on 01/18/17 Re-Evaluation - Re-Evaluation First Eval Re-Evaluation Time: 19:05 Comment: Patient has dysrhythmia. ED Physician ordering another EKG. Adult Trauma Course/Dx - Course Course Of Treatment: Ms. Morel was found at the bottom of the steps. It is unclear what happened but she has no C/O. She presented febrile and tachycardic. Labs, CXR and U/A were ordered and she was given fluids, acetaminophen and levaquin. She had a brief run of SVT that broke with adenocard. - Diagnoses Provider Diagnoses: Sepsis, SVT (supraventricular tachycardia), Syncope and collapse - Physician Notifications Discussed Care Of Patient With: Hao Soto - Hospitalist Time Discussed With Above Provider: 19:25 Instructed by Provider To: Admit As Inpatient - Critical Care Time Critical Care Time: 30-74 min Discharge - Discharge Plan Condition: Stable Disposition: ADMITTED TO [facility] The documentation as recorded by the Nereida valdez Nilda accurately reflects the service I personally performed and the decisions made by me, Rojelio Pulido MD.
[2017-01-18] MEDS: NS 0.9% 1000 ML* 1,000 ML IV SCH (21:43)
[2017-01-18] MEDS: Atorvastatin* 20 MG TAB PO SCH (21:43)
--- NOTE | 2017-01-18 23:35 | HP ---
CC: JOSE Carr; Patricio Orourke MD * ADMISSION HISTORY AND PHYSICAL: DATE OF ADMISSION: 01/18/17 PRIMARY CARE PROVIDER: JOSE Carr and Patricio Orourke MD HEALTHCARE PROXY: Her son, Otis. CODE STATUS: DNR/DNI. Discussed with the patient and her son. SOURCE OF INFORMATION: History obtained from interview with the patient and her son. RELIABILITY: Fair. HISTORY OF PRESENT ILLNESS: This is an 86-year-old female, current history of follicular lymphoma, receiving chemotherapy from our oncology group. Last treatment approximately 3 weeks prior to presentation per patient. Started regimen is 6 weeks prior to presentation per patient's son. The patient has been weak over the last couple of days with diarrhea worse in the morning and anorexia and an occasional cough. Because of a decreased appetite, her son and the patient have proceeded to [facility] to get nutritional supplements and upon returning home, daughter was walking up the stairs when the son heard a fall, found her at the bottom of stairs. The patient does not remember the fall, only remembers arriving at [facility] Emergency Room, although son indicates that she was awake and interacting with EMS. She otherwise denies any recent fevers, chills, nausea, vomiting or symptoms over the last days or weeks. She has notable skin breakdown over her entire body from face to toes that she does not notice worse; however, son thinks it is worse since starting chemotherapy. Per emergency room, she had a T-max of 103 degrees Fahrenheit and was in supraventricular tachycardia, for which she receives 6 mg of adenosine and 12 mg of adenosine with slowing of her heart rate from 166 to the 110s into sinus tachycardia. For this reason, the hospitalist service was consulted for admission. When seen by this author, the patient had no complaints. PAST MEDICAL HISTORY: Follicular lymphoma, currently receiving therapy; moderate aortic stenosis; postherpetic neuralgia; hypertension; hyperlipidemia; GERD; remote history of breast cancer, status post bilateral mastectomy; IBS; right hip fracture, concern for orthostatic hypotension on past admission; ORIF of right hip; partial small bowel resection for a tumor mass resection. CURRENT MEDICATIONS: From medication sheet include: 1. Bystolic 5 mg. 2. Lyrica 100 mg daily. 3. Cymbalta 20 mg daily. 4. Valacyclovir 500 mg 5 times a week. 5. Vitamin D 5000 units weekly. 6. B complex with C once weekly/iron 1 daily. 7. Pravastatin 20 mg daily, although the patient is not clear whether she is taking this or not. ALLERGIES: To GLUTEN, ASPIRIN, CARVEDILOL, PENICILLINS, ACEBUTOLOL, ATENOLOL, ERYTHROMYCIN, IRON, METOPROLOL, AND PROPRANOLOL. FAMILY HISTORY: Mother with breast cancer. Father with stroke. SOCIAL HISTORY: No tobacco. Rare alcohol. Lives alone. Has no home health aides. Ambulates unassisted. REVIEW OF SYSTEMS: As per HPI, includes anorexia, cough, fatigue, otherwise all other systems reviewed negative. PHYSICAL EXAMINATION GENERAL: Elderly woman, sitting up in bed, interactive, pleasant, in no apparent distress. VITAL SIGNS: When seen by this author, blood pressure 115/69, heart rate is 110 , respiratory rate is 20, temperature 99.7, and she is 96% on room air. HEENT: Oropharynx is clear. She has dry mucous membranes. Sclerae are anicteric. NECK: She has non-elevated JVD. No cervical or supraclavicular lymphadenopathy. LUNGS: Coarse breath sounds throughout. No notable rales. HEART: She has tachycardic heart rate with 2/6 systolic ejection murmur. ABDOMEN: Soft, nontender, and nondistended with positive bowel sounds. EXTREMITIES: Warm and well perfused. She has bulky lymphadenopathy over her right elbow. NEURO: She is alert and oriented x3. Her cranial nerves II through XII are intact. No apparent anxiety, agitation, or depression. SKIN: Has small ulcers with skin breakdown over all aspects of her body, face, chest, back, stomach, extremities and toes, none with any evidence of active inflammation or an infection. DIAGNOSTIC STUDIES/LAB DATA: Reviewed. Notable for creatinine 1.12, glucose 106, lactic acid 1.5, total bilirubin 1.1, alk phos 196, AST 13, ALT 14, troponin I 0.03, CRP is 72. INR is 2.1. White blood cell count 8.1, hemoglobin 12.8, platelets 163. Urine is pending. Data reviewed. EKG, adenosine, sinus tachycardia left axis, no ST or T-wave changes, late R-wave progression. Chest x-ray, no radiographic evidence for acute cardiopulmonary abnormalities on this portable chest x-ray. ASSESSMENT AND PLAN: This is an 86-year-old female with active follicular lymphoma, progressing on last PET scan, receiving chemotherapy, presented to the hospital after a fall, T-max 103 with new supraventricular tachycardia, responding to adenosine. 1. Follicular lymphoma, may be etiology of fever. Oncology to resume care tomorrow. 2. Supraventricular tachycardia, now sinus rhythm after receiving adenosine suspected in the setting of high fevers. We will continue with normal saline 125 cc per hour for 2 additional liters. Check orthostatic vital signs in the setting of fall. 3. Hypertension. Continue Bystolic, hold antihypertensives. 4. Fall, unclear etiology, potential in the setting of orthostasis with walking upstairs. This has been a concern on her last hospital stay where she resulted with broken hip. However, in the setting of high fevers, suspected as contributing as well as potential dehydration contributing to orthostasis as evidenced by her worsening renal function. Getting fluids as indicated above. Check orthostatic vital sings. Hold antihypertensives. Monitor on telemetry. 5. Fever. Chest x-ray did not elucidate source at this time. Urine pending, although no urinary symptoms. History of recent diarrhea, although only in the morning. Check stool culture as well as Clostridium difficile. The patient has many skin lesions, which have high likelihood of developing infection, although none identified at the time of presentation that looked actively infected and contributing to a fever of 103. Tumor fever is possibility, although very high in the setting of lymphoma. Tylenol for fevers. Received Levaquin in the emergency room. Hold on antibiotics further at this time. 6. DVT prophylaxis. Elevated INR. Repeat INR tomorrow. Holding on other DVT prophylaxis in the setting of supratherapeutic INR. 7. Code status. DNR/DNI. MOLST filled out, placed on chart. [id number]/[facility] #: [id number] BESSY
[2017-01-19] MEDS: CLOBETASOL 0.05% TOPICAL PRN (02:31)
[2017-01-19] MEDS ORDERED: Nebivolol TAB (NF) 2.5 MG TAB PO ONE ×2 (03:23→11:30)
[2017-01-19] MEDS ORDERED: diPHENhydraMINE PO* 50 MG PO ONE (03:24)
[2017-01-19] MEDS: NS 0.9% 1000 ML* 1,000 ML IV SCH (05:43)
[2017-01-19 05:55] LABS: Hematocrit 35 % (35-47); Hemoglobin 11.5 g/dl (12.0-16.0); Mean Corpuscular HGB Conc 33 g/dl (31-36); Mean Corpuscular Hemoglobin 32 pg (27-31); Mean Corpuscular Volume 95 fL (80-97); Mean Platelet Volume 8 um3 (7.4-10.4); Red Blood Count 3.66 10^6/ul (4.0-5.4); Red Cell Distribution Width 17 % (10.5-15); White Blood Count 7.2 10^3/ul (3.5-10.8)
[2017-01-19 06:06] LABS: Albumin 2.5 g/dL (3.2-5.2); BUN/Creatinine Ratio 15.7 (8-20); Calcium 7.4 mg/dL (8.6-10.3); Direct Bilirubin 0.1 mg/dL (0.03-0.18); EGFR African American 77.2 (>60); Globulin 2.3 g/dL (2-4); Indirect Bilirubin 0.7 mg/dL (0.3-1.0); Potassium 3.7 mmol/L (3.5-5.0); Total Bilirubin 0.8 mg/dL (0.2-1.0); Total Protein 4.8 g/dL (6.4-8.9)
[2017-01-19] MEDS ORDERED: CMCS: Nebivolol TAB (NF) 2.5 MG TAB PO SCH (09:00)
[2017-01-19] MEDS ORDERED: Influenza VAC *QUAD* 2017-18* 0.5 ML SYRINGE IM ONE (09:00)
[2017-01-19] MEDS: ValACYclovir (*) 500 MG TAB PO SCH (09:32)
[2017-01-19] MEDS: Pregabalin CAP(*) 100 MG PO SCH (09:32)
[2017-01-19] MEDS: DULoxetine DR CAP* 20 MG CAP.DR PO SCH (09:32)
[2017-01-19 14:25] LABS: Urine Bacteria 1+ (Absent); Urine Bilirubin Negative (Negative); Urine Glucose Negative (Negative); Urine Nitrite Negative (Negative)
[2017-01-19] MEDS ORDERED: diPHENhydraMINE PO* 50 MG PO PRN (18:45)
[2017-01-19] MEDS: Atorvastatin* 20 MG TAB PO SCH (20:10)
[2017-01-20] MEDS: CLOBETASOL 0.05% TOPICAL PRN ×2 (01:47→08:38)
[2017-01-20 05:35] LABS: Hematocrit 35 % (35-47); Hemoglobin 11.5 g/dl (12.0-16.0); Mean Corpuscular HGB Conc 33 g/dl (31-36); Mean Corpuscular Hemoglobin 31 pg (27-31); Mean Corpuscular Volume 95 fL (80-97); Mean Platelet Volume 9 um3 (7.4-10.4); Red Blood Count 3.68 10^6/ul (4.0-5.4); Red Cell Distribution Width 17 % (10.5-15); White Blood Count 6.9 10^3/ul (3.5-10.8)
[2017-01-20 05:46] LABS: BUN/Creatinine Ratio 14.7 (8-20); Calcium 7.5 mg/dL (8.6-10.3); EGFR Non-African American 73.1 (>60); Potassium 3.8 mmol/L (3.5-5.0)
[2017-01-20 07:43] VITALS: BP 133/78
[2017-01-20] MEDS: ValACYclovir (*) 500 MG TAB PO SCH (07:55)
[2017-01-20] MEDS: DULoxetine DR CAP* 20 MG CAP.DR PO SCH (07:55)
[2017-01-20] MEDS: Pregabalin CAP(*) 100 MG PO SCH (07:55)
[2017-01-20] MEDS ORDERED: CMC:Nebivolol TAB (NF) 2.5 MG TAB PO SCH (09:00)
--- NOTE | 2017-01-20 10:09 | DS ---
- Discharge Summary ADMIT DATE: 01/18/2017 DISCHARGE DATE: 01/20/2017 DISCHARGE DIAGNOSIS: 1. Viral Gastroenteritis 2. follicular lymphoma DISCHARGE MEDICATIONS: Home Medications Medication Instructions Recorded Confirmed Type Acetaminophen [Acetaminophen Extra 2 tab PO Q6HR PRN 08/29/16 01/19/17 History Stren] Cholecalciferol [Vitamin D3] 1 tab PO WEEKLY 08/29/16 01/19/[address] CAP* [Cymbalta CAP*] 1 tab PO DAILY 08/29/16 01/19/17 History Nebivolol HCl [Bystolic] 1 tab PO DAILY 08/29/16 01/19/17 History Probiotic Product [Align] 1 tab PO DAILY 08/29/16 01/19/17 History Vitamin B Complex CAP* [B Complex 1 tab PO WEEKLY 08/29/16 01/19/17 History CAP*] Valacyclovir HCl [Valtrex] 500 mg PO DAILY 11/06/16 01/19/17 History Lyrica CAP(*) 1 cap PO BID 11/09/16 01/19/17 History Triamcinolone 0.1% OINT(NF) 1 applic TOPICAL TID PRN #0 gm 11/17/16 01/19/17 Rx [Kenolog 0.1% OINT(NF)] Clobetasol 0.05% OINT* 1 applic TOPICAL . DIRECTED PRN 01/20/17 Rx #0 tube Pregabalin CAP(*) [Lyrica CAP(*)] 100 mg PO DAILY cap MDD 100 01/20/17 Rx diPHENhydraMINE PO* [Benadryl PO 50 mg PO BEDTIME PRN #0 cap 01/20/17 Rx 50 MG CAP*] DISCHARGE FOLLOW UP: Dr. 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 Her cultures were all negative and she defervesced and improved off of antibiotics supporting a viral etiology to her presentation. She is fairly frail and I expressed concern to Lilian and her son regarding her living independently. She is clear that she will NOT accept assisted living at this time, and she was very mentally clear and competent in making this decision. She did accept a [facility]NS referral and her son will be staying with her for now. She will see Dr. Orourke tomorrow to discuss starting palliative idelesilib. >30 mins spent,>50% in face to face counseling
== END 2017-01-20 11:17 | disposition home health service (06) | DRG 392 ==
LOC: ED 17:36 → MEDTELE 20:06
PROVIDERS: ADMIT Internal Medicine; ATTEND Internal Medicine Hematology & Oncology
PROC: 3E0234Z Introduction of Serum, Toxoid and Vaccine into Muscle, Percutaneous Approach (ICD-10-PCS; principal; 2017-01-19)
DX: A08.4 Viral intestinal infection, unspecified (principal); C82.60 Cutaneous follicle center lymphoma, unspecified site; I35.0 Nonrheumatic aortic (valve) stenosis; I47.1 Supraventricular tachycardia; R50.9 Fever, unspecified; R79.1 Abnormal coagulation profile; Z66 Do not resuscitate; H26.9 Unspecified cataract; H91.90 Unspecified hearing loss, unspecified ear; K58.9 Irritable bowel syndrome, unspecified; F41.9 Anxiety disorder, unspecified; I10 Essential (primary) hypertension; K21.9 Gastro-esophageal reflux disease without esophagitis; Z92.21 Personal history of antineoplastic chemotherapy; Z90.13 Acquired absence of bilateral breasts and nipples; Z88.8 Allergy status to other drugs, medicaments and biological substances; Z88.0 Allergy status to penicillin; Z88.1 Allergy status to other antibiotic agents; Z82.3 Family history of stroke; Z80.3 Family history of malignant neoplasm of breast; Z91.018 Allergy to other foods; Z85.068 Personal history of other malignant neoplasm of small intestine; Z23 Encounter for immunization
CPT/HCPCS: 36415; 71010; 80048; 80053; 80076; 81003; 81015; 82550; 83605; 84484; 85025; 85384; 85610; 85730; 86140; 87040; 87077; 87086; 87186; 87493; 87502; 90686; 93005; 99214; 99239; A9270-GY; G0463; J0153; J1642

== ENCOUNTER 2017-02-01 13:08 | Observation (INO) | payer MEDICARE, OTHER ==
--- NOTE | 2017-02-01 14:22 | RAD ---
Indication: Weakness. Altered mental status tachycardia. Possible dehydration. On chemotherapy for lymphoma. Comparison: January 18, 2017 Technique: Upright AP 1347 hours Report: Tip of LEFT chest port at level of RIGHT atrium. Low lung volumes with associated mild crowding of the pulmonary markings and basilar atelectasis. Grossly clear pleural spaces. Negative for pneumothorax. Negative for cardiomegaly accounting for portable AP technique and suboptimal inspiration. Unremarkable central pulmonary vasculature. Moderately tortuous thoracic aorta. Negative for free air beneath the diaphragm. IMPRESSION: Low lung volumes with mild subsegmental atelectasis. No compelling evidence for pneumonia. Negative for pulmonary edema.
[2017-02-01 14:26] LABS: Hematocrit 35 % (35-47); Hemoglobin 11.8 g/dl (12.0-16.0); Mean Corpuscular HGB Conc 33 g/dl (31-36); Mean Corpuscular Hemoglobin 31 pg (27-31); Mean Corpuscular Volume 94 fL (80-97); Mean Platelet Volume 8 um3 (7.4-10.4); Red Blood Count 3.76 10^6/ul (4.0-5.4); Red Cell Distribution Width 18 % (10.5-15); White Blood Count 5.8 10^3/ul (3.5-10.8)
[2017-02-01] MEDS ORDERED: NS 0.9% 1000 ML* 1,000 ML IV ONE ×2 (14:42→16:40)
[2017-02-01 14:48] LABS: BUN/Creatinine Ratio 18.6 (8-20); Calcium 8.4 mg/dL (8.6-10.3); EGFR African American 58.6 (>60); EGFR Non-African American 45.5 (>60); Globulin 2.9 g/dL (2-4); Potassium 4.7 mmol/L (3.5-5.0); Total Bilirubin 0.6 mg/dL (0.2-1.0); Total Protein 5.9 g/dL (6.4-8.9)
[2017-02-01 14:49] LABS: Troponin I 0.02 ng/mL (<0.04)
[2017-02-01 17:12] LABS: Urine Bacteria Absent (Absent); Urine Bilirubin Negative (Negative); Urine Glucose Negative (Negative); Urine Nitrite Negative (Negative)
[2017-02-01] MEDS ORDERED: cefTRIAXone(*) 1 GM in NS 0.9% 50 ML* 50 ML IVPB ONE (17:31)
[2017-02-01] MEDS: Calcium Carbonate CHEW TAB* 500 MG (TUMS) PO SCH ×2 (20:24→20:28)
[2017-02-01] MEDS: Pregabalin CAP(*) 50 MG PO SCH (20:24)
[2017-02-01] MEDS: NS 0.9% 1000 ML* 1,000 ML IV SCH (20:24)
[2017-02-01] MEDS: diPHENhydraMINE PO* 50 MG PO PRN (20:25)
[2017-02-01] MEDS ORDERED: [UNRECOGNIZED DRUG - OTHER] PO SCH (21:00)
[2017-02-01] MEDS: Triamcinolone 0.025% OINT * 15 GM TUBE TOPICAL PRN (22:41)
[2017-02-01] MEDS: Clobetasol 0.05% OINT* 30 GM TUBE TOPICAL PRN (22:41)
[2017-02-02 06:16] LABS: Hematocrit 29 % (35-47); Hemoglobin 9.7 g/dl (12.0-16.0); Mean Corpuscular HGB Conc 33 g/dl (31-36); Mean Corpuscular Hemoglobin 31 pg (27-31); Mean Corpuscular Volume 94 fL (80-97); Mean Platelet Volume 8 um3 (7.4-10.4); Red Blood Count 3.14 10^6/ul (4.0-5.4); Red Cell Distribution Width 18 % (10.5-15); White Blood Count 4.5 10^3/ul (3.5-10.8)
[2017-02-02 06:30] LABS: BUN/Creatinine Ratio 18.2 (8-20); Calcium 7.6 mg/dL (8.6-10.3); EGFR African American 78.2 (>60); EGFR Non-African American 60.8 (>60)
[2017-02-02] MEDS: Calcium Carbonate CHEW TAB* 500 MG (TUMS) PO SCH ×2 (08:51→20:40)
[2017-02-02] MEDS: ValACYclovir (*) 500 MG TAB PO SCH (08:51)
[2017-02-02] MEDS: Pregabalin CAP(*) 50 MG PO SCH ×2 (08:52→20:39)
[2017-02-02] MEDS: DULoxetine DR CAP* 20 MG CAP.DR PO SCH (08:52)
[2017-02-02] MEDS: predniSONE TAB* 10 MG PO SCH (08:53)
[2017-02-02] MEDS: [UNRECOGNIZED DRUG - OTHER] PO SCH ×2 (08:55→20:49)
[2017-02-02] MEDS: Famotidine TAB* 20 MG PO SCH (08:55)
[2017-02-02] MEDS: NS 0.9% 1000 ML* 1,000 ML IV SCH ×2 (10:15→12:35)
--- NOTE | 2017-02-02 14:07 | ED ---
Franky Correa Alfonso scribed for Mario Mendez MD on 02/01/17 at 1644 . Complex/Multi-Sys Presentation - HPI Summary HPI Summary: This patient is an 86 year old F presenting to [facility] accompanied by son with a chief complaint of weakness since a few weeks ago. The patient rates the pain 0/ 10 in severity. Symptoms alleviated by nothing. Son reports racing palpitations (few weeks), loss of appetite, AMS, and increased sleeping. Patient reports nonproductive cough, dehydration, and diffuse pruritic skin. Patient denies fever, chill, diaphoresis, CP, SOB, abdominal pain, and back pain. - History Of Current Complaint Chief Complaint: EDGeneral Time Seen by Provider: 02/01/17 16:24 Hx Obtained From: Patient, Family/Group Teacher Onset/Duration: Sudden Onset Timing: Constant Severity Currently: Mild Alleviating Factor(s): Nothing Associated Signs And Symptoms: Positive: Other - Son reports racing palpitations (few weeks), loss of appetite, AMS, and increased sleeping. Patient reports nonproductive cough, dehydration, and diffuse pruritic skin. Patient denies fever, chill, diaphoresis, CP, SOB, abdominal pain, and back pain. - Allergies/Home Medications Allergies/Adverse Reactions: Allergies Allergy/AdvReac Type Severity Reaction Status Date / Time Gluten Meal Allergy Severe ABD PAIN, Verified 02/01/17 13:14 DIARRHEA Aspirin Allergy See Comment Verified 02/01/17 13:14 Carvedilol Allergy Unknown Verified 02/01/17 13:14 Reaction Details Penicillins Allergy See Comment Verified 02/01/17 13:14 Acebutolol AdvReac Stomach Verified 02/01/17 13:14 Cramps Atenolol AdvReac See Comment Verified 02/01/17 13:14 Erythromycin AdvReac See Comment Verified 02/01/17 13:14 Iron AdvReac See Comment Verified 02/01/17 13:14 Metoprolol AdvReac See Comment Verified 02/01/17 13:14 Propranolol AdvReac See Comment Verified 02/01/17 13:14 Home Medications: Home Medications Calcium Carbonate CHEW TAB* [Tums*] 250 mg PO TID PRN 02/01/17 [History Confirmed 02/01/17] Cholecalciferol [Vitamin D] 5,000 unit PO FR 02/01/17 [History Confirmed ] DULoxetine DR CAP* [Cymbalta CAP*] 20 mg PO DAILY 02/01/17 [History Confirmed ] Famotidine TAB* [Pepcid 20 MG TAB*] 20 mg PO QAM 02/01/17 [History Confirmed ] Ibuprofen TAB* [Advil TAB*] 400 mg PO TID PRN 02/01/17 [History Confirmed ] Idelalisib [Zydelig] 150 mg PO BID 02/01/17 [History Confirmed 02/01/17] Pregabalin CAP(*) [Lyrica CAP(*)] 50 mg PO BID 02/01/17 [History Confirmed 02/01] Probiotic Product [Align] 4 mg PO DAILY 02/01/17 [History Confirmed 02/01/17] ValACYclovir (*) [Valtrex 500 mg (*)] 500 mg PO DAILY 02/01/17 [History Confirmed 02/01/17] diPHENhydraMINE PO* [Benadryl PO 25 MG TAB*] 25 mg PO DAILY PRN 02/01/17 [ History Confirmed 02/01/17] predniSONE TAB* [Deltasone TAB*] 10 mg PO DAILY 02/01/17 [History Confirmed ] PMH/Surg Hx/FS Hx/Imm Hx Endocrine/Hematology History: Reports: Other Endocrine/Hematological Disorders - enlarged lymph nodes Denies: Hx Diabetes Cardiovascular History: Reports: Hx Hypercholesterolemia, Hx Hypertension Denies: Hx Pacemaker/ICD GI History: Reports: Hx Gastroesophageal Reflux Disease, Hx Irritable Bowel, Other GI Disorders - eats soft food, has hemorrhoids History: Denies: Hx Renal Disease, Other Problems/Disorders Musculoskeletal History: Reports: Hx Tendonitis - shoulders Denies: Hx Arthritis, Hx Osteoporosis Sensory History: Reports: Hx Cataracts - natanael, Hx Contacts or Glasses, Hx Hearing Problem - TETLIN Denies: Hx Hearing Aid Opthamlomology History: Reports: Hx Cataracts - natanael, Hx Contacts or Glasses Neurological History: Denies: Other Neuro Impairments/Disorders Psychiatric History: Denies: Hx Anxiety, Hx Panic Disorder - Cancer History Cancer Type, Location and Year: Breast CA bilateral. lymphoma- sm. bowel ca. skin ca Hx Chemotherapy: Yes - 3 weeks ago - Surgical History Surgery Procedure, Year, and Place: [place] [facility] [place] [place] Anesthesia Reactions: No Infectious Disease History: No Infectious Disease History: Reports: Hx Shingles Denies: History Other Infectious Disease, Traveled Outside the [place] in Last 30 Days - Family History Known Family History: Positive: Other - stroke, CA, shingles Negative: Cardiac Disease, Hypertension, Diabetes - Social History Lives: With Family - Son Alcohol Use: Rare Alcohol Amount: sip quentro 1-2 x per week Hx Substance Use: No Substance Use Type: Reports: None Hx Tobacco Use: No Smoking Status (MU): Never Smoked Tobacco Review of Systems Positive: Other - dehydration. Negative: Fever, Chills, Skin Diaphoresis Negative: Erythema Negative: Sore Throat Positive: Palpitations. Negative: Chest Pain Positive: Cough. Negative: Shortness Of Breath Positive: Other - loss of appetite. Negative: Abdominal Pain, Vomiting, Nausea Negative: dysuria, hematuria Positive: Other - negative back pain. Negative: Myalgia, Edema Positive: Other - diffuse pruritic skin. Negative: Rash Neurological: Other - AMS, and increased sleeping; Negative dizziness All Other Systems Reviewed And Are Negative: Yes Physical Exam - Summary Physical Exam Summary: Constitutional: Well-developed, Well-nourished, Alert. (-) Distressed Skin: Warm, Dry HENT: Normocephalic; Atraumatic Eyes: Conjunctiva normal. Dry mucous membranes. Neck: Musculoskeletal ROM normal neck. (-) JVD, (-) Stridor, (-) Tracheal deviation Cardio: Rhythm regular, rate normal, Heart sounds normal; Intact distal pulses; The pedal pulses are 2+ and symmetric. Radial pulses are 2+ and symmetric. (-) Murmur Pulmonary/Chest wall: Effort normal. (-) Respiratory distress, (-) Wheezes, (-) Rales, Right lower lobe crackles. Abd: Soft, (-) Tenderness, (-) Distension, (-) Guarding, (-) Rebound Musculoskeletal: (-) Edema Lymph: (-) Cervical adenopathy Neuro: Alert, Oriented x3 Psych: Mood and affect Normal Triage Information Reviewed: Yes Vital Signs On Initial Exam: Initial Vitals Temp Pulse Resp BP Pulse Ox 99.2 F 125 16 111/66 96 02/01/17 13:12 02/01/17 13:12 02/01/17 13:12 02/01/17 13:12 02/01/17 13:12 Vital Signs Reviewed: Yes - Shorter Coma Scale Coma Scale Total: 14 Diagnostics - Vital Signs Vital Signs Temp Pulse Resp BP Pulse Ox 02/01/17 16:00 30 104/58 02/01/17 15:30 117 25 107/66 95 02/01/17 15:00 134 33 103/62 95 02/01/17 14:30 122 30 102/67 96 02/01/17 14:00 126 25 102/68 95 02/01/17 13:48 97 02/01/17 13:38 132 107/65 92 02/01/17 13:12 99.2 F 125 16 111/66 96 - Laboratory Lab Results: Lab Results 02/01/17 02/01/17 02/01/17 Range/Units 14:10 14:10 14:10 WBC 5.8 (3.5-10.8) 10^3/ul RBC 3.76 L (4.0-5.4) 10^6/ul Hgb 11.8 L (12.0-16.0) g/dl Hct 35 (35-47) % MCV 94 (80-97) fL MCH 31 (27-31) pg MCHC 33 (31-36) g/dl RDW 18 H (10.5-15) % Plt Count 334 (150-450) 10^3/ul MPV 8 (7.4-10.4) um3 Neut % (Auto) 86.8 H (38-83) % Lymph % (Auto) 3.1 L (25-47) % [place] % (Auto) 6.3 (1-9) % Eos % (Auto) 2.6 (0-6) % Baso % (Auto) 1.2 (0-2) % Absolute Neuts (auto) 5.0 (1.5-7.7) 10^3/ul Absolute Lymphs (auto) 0.2 L (1.0-4.8) 10^3/ul Absolute Monos (auto) 0.4 (0-0.8) 10^3/ul Absolute Eos (auto) 0.2 (0-0.6) 10^3/ul Absolute Basos (auto) 0.1 (0-0.2) 10^3/ul Absolute Nucleated RBC 0 10^3/ul Nucleated RBC % 0 INR (Anticoag Therapy) 1.29 H (0.89-1.11) APTT 33.1 (26.0-36.3) seconds Sodium 137 (133-145) mmol/L Potassium 4.7 (3.5-5.0) mmol/L Chloride 104 (101-111) mmol/L Carbon Dioxide 26 (22-32) mmol/L Anion Gap 7 (2-11) mmol/L BUN 21 (6-24) mg/dL Creatinine 1.13 H (0.51-0.95) mg/dL Est GFR ( Amer) 58.6 (>60) Est GFR (Non-Af Amer) 45.5 (>60) BUN/Creatinine Ratio 18.6 (8-20) Glucose 134 H (70-100) mg/dL Lactic Acid (0.5-2.0) mmol/L Calcium 8.4 L (8.6-10.3) mg/dL Total Bilirubin 0.60 (0.2-1.0) mg/dL AST 14 (13-39) U/L ALT 16 (7-52) U/L Alkaline Phosphatase 312 H (34-104) U/L Troponin I 0.02 (<0.04) ng/mL Total Protein 5.9 L (6.4-8.9) g/dL Albumin 3.0 L (3.2-5.2) g/dL Globulin 2.9 (2-4) g/dL Albumin/Globulin Ratio 1.0 (1-3) 02/01/ Range/Units 14:10 WBC (3.5-10.8) 10^3/ul RBC (4.0-5.4) 10^6/ul Hgb (12.0-16.0) g/dl Hct (35-47) % MCV (80-97) fL MCH (27-31) pg MCHC (31-36) g/dl RDW (10.5-15) % Plt Count (150-450) 10^3/ul MPV (7.4-10.4) um3 Neut % (Auto) (38-83) % Lymph % (Auto) (25-47) % [place] % (Auto) (1-9) % Eos % (Auto) (0-6) % Baso % (Auto) (0-2) % Absolute Neuts (auto) (1.5-7.7) 10^3/ul Absolute Lymphs (auto) (1.0-4.8) 10^3/ul Absolute Monos (auto) (0-0.8) 10^3/ul Absolute Eos (auto) (0-0.6) 10^3/ul Absolute Basos (auto) (0-0.2) 10^3/ul Absolute Nucleated RBC 10^3/ul Nucleated RBC % INR (Anticoag Therapy) (0.89-1.11) APTT (26.0-36.3) seconds Sodium (133-145) mmol/L Potassium (3.5-5.0) mmol/L Chloride (101-111) mmol/L Carbon Dioxide (22-32) mmol/L Anion Gap (2-11) mmol/L BUN (6-24) mg/dL Creatinine (0.51-0.95) mg/dL Est GFR ( Amer) (>60) Est GFR (Non-Af Amer) (>60) BUN/Creatinine Ratio (8-20) Glucose (70-100) mg/dL Lactic Acid 1.7 (0.5-2.0) mmol/L Calcium (8.6-10.3) mg/dL Total Bilirubin (0.2-1.0) mg/dL AST (13-39) U/L ALT (7-52) U/L Alkaline Phosphatase (34-104) U/L Troponin I (<0.04) ng/mL Total Protein (6.4-8.9) g/dL Albumin (3.2-5.2) g/dL Globulin (2-4) g/dL Albumin/Globulin Ratio (1-3) Result Diagrams: 02/01/17 14:10 02/01/17 14:10 Lab Statement: Any lab studies that have been ordered have been reviewed, and results considered in the medical decision making process. - Radiology CXR Radiology Interpretation Completed By: Radiologist - Low lung volumes with mild subsegmental atelectasis. No compelling evidence for pneumonia. Negative for pulmonary edema. ED physician has reviewed this radiology report and agrees. Complex Multi-Symp Course/Dx Assessment/Plan: This patient is an 86 year old F presenting to [facility] accompanied by son with a chief complaint of weakness since a few weeks ago. The patient rates the pain 0/10 in severity. Symptoms alleviated by nothing. Son reports racing palpitations (few weeks), loss of appetite, AMS, and increased sleeping. Patient reports nonproductive cough, dehydration, and diffuse pruritic skin. Patient denies fever, chill, diaphoresis, CP, SOB, abdominal pain, and back pain. CXR reveals Low lung volumes with mild subsegmental atelectasis. No compelling evidence for pneumonia. Negative for pulmonary edema. ED physician has reviewed this radiology report and agrees. Patient will be admitted with follow up from Dr. Benavidez (oncologist). The patient is agreeable with this plan. - Diagnoses Provider Diagnoses: UTI (urinary tract infection), Dehydration - Physician Notifications Discussed Care Of Patient With: Omkar Benavidez Time Discussed With Above Provider: 17:38 Instructed by Provider To: Other - Consulted Dr. Benavidez (oncologist) who agrees to admit. Discharge - Discharge Plan Condition: Stable Disposition: ADMITTED TO [facility] The documentation as recorded by the Franky valdez Alfonso accurately reflects the service I personally performed and the decisions made by , Mario Mendez MD.
[2017-02-02] MEDS: diPHENhydraMINE PO* 50 MG PO PRN (20:38)
[2017-02-02] MEDS: Triamcinolone 0.025% OINT * 15 GM TUBE TOPICAL PRN (22:16)
[2017-02-02] MEDS: Clobetasol 0.05% OINT* 30 GM TUBE TOPICAL PRN (22:16)
--- NOTE | 2017-02-03 00:36 | HP ---
HISTORY AND PHYSICAL: DATE OF ADMISSION: 02/01/17 REASON FOR ADMISSION: Dehydration and fatigue in a patient with recurrent lymphoma. HISTORY OF PRESENT ILLNESS: Lilian Morel is an 86-year-old female with a history of lymphoma dating back to 2001. For details, please see below. Recently, she was started on a new medication, idelalisib 150 mg b.i.d. This was approximately 2 weeks ago. Even prior to this, she has failed other recent medications for her recurrent lymphoma. She has had severe problems with skin involvement and itching. Benadryl has been only minimally successful in terms of treating this. She was seen in the office on 01/29/17. She had had some diarrhea, but no dehydration at that time. Was having significant problems with itching, which she reports may be slightly better, although her son does not believe that it was. Decision was made to try her on Remeron. She received 1 dose of Remeron 7.5 mg at night. The son reports that she was extremely confused and disoriented and was wandering around naked in her bedroom. Remeron was discontinued and she went back to Benadryl 50 mg at h.s. and prednisone 10 mg in the morning. She continues to be followed by visiting nurse services. Her pulse was found to be rapid up into the 130s and also she was found to have an elevated blood pressure without any significant fever. There was concern that she may be dehydrated and she was sent to the emergency room. She was interviewed there along with her son. Reports that she is not seeming to be at her usual self and that she is not only more confused and disoriented, but also there was a question posed by the emergency room physician whether or not she might have a urinary tract infection. She reports the itching is somewhat better, although her son reports that when she wakes up in the morning, her sheets are all bloody from the amount of scratching that she has done of the lesions in the skin. Appetite has been fair. No nausea or vomiting. Bowels okay. She has had no diarrhea for the past 3 to 4 days. 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 In December of 2015, herpes zoster and significant problems with pain with at the site ever since. She was found to have progressive disease with lymphadenopathy and marked infiltration of the skin of the right arm from lymphoma. PET scan revealed multiple hypermetabolic lymph nodes both above and below the diaphragm with on the right groin. Biopsy of the lymph node reveals follicular lymphoma grade IIIA. Just as she was about to start therapy for the lymphoma, she developed a hip fracture in October 2016. Subsequently, this has been repaired. She is started on rituximab on November 24, but had rapid growth of the tumor and was changed to bendamustine and Rituxan. She received 2 cycles of this, but tolerated extremely poorly and without significant change in the amount of disease noted in the skin. She was then started on the idelalisib approximately 10 days ago. MEDICATIONS: At the present time: 1. Advil 200 mg t.i.d. p.r.n. 2. Cymbalta 20 mg daily. 3. Benadryl 50 mg at h.s. p.r.n. 4. Famotidine 20 mg every morning. 5. Idelalisib 150 mg b.i.d. 6. Lyrica 50 mg b.i.d. 7. Prednisone 10 mg in the morning. 8. Tums tablets half a tablet t.i.d. 9. Valacyclovir 500 mg daily. 10. Also takes B complex and vitamin D. ALLERGIES: ERYTHROMYCIN, IM METOPROLOL, and PENICILLIN. FAMILY HISTORY: Unremarkable and noncontributory. REVIEW OF SYSTEMS: Increased fatigue recently. Denies any significant headaches, visual changes, or other neurologic complaints. Denies any significant shortness of breath or chest pain. Denies any significant other changes in bowel or bladder habits. Skin, extremely itchy red rash and lesions throughout. Denies any significant depression, stress, or anxiety. PHYSICAL EXAMINATION GENERAL: An 86-year-old female with a pulse rate of 130, blood pressure initially 170/90 and subsequently falling to approximately 100 systolic, afebrile. HEENT: PERRL. EOMI. No erythema or exudates. NECK: No palpable cervical, supraclavicular, or axillary adenopathy. LUNGS: Clear. HEART: Regular rate and rhythm without murmurs, rubs, or gallops. ABDOMEN: Normoactive bowel sounds without masses or organomegaly. EXTREMITIES: No edema. SKIN: Multiple red irritated lesions, many open on all extremities. Right arm with significant involvement of lymphoma due to the skin. IMPRESSION: An 86-year-old female with recurrent lymphoma. Recently started on new medication who now is found to be tachycardic and hypertensive and with elevated creatinine of 1.18, up from a baseline of 0.8 and likely quite dehydrated based on the recent intake and based on the report of visiting nurses and of the son. She is admitted at this time for IV fluids. Culture have been obtained and results are pending. We will hold off on antibiotics. The urine although it does look slightly cloudy per the emergency room had no bacteria seen and did have epithelial cells present. She will be maintained on usual medications and Benadryl has been resumed for the itching and she is currently off the Remeron. She will also receive prednisone in the morning. All the other routine medications will be continued. [id number]/CPS #: [id number] MTDD
[2017-02-03] MEDS ORDERED: diPHENhydraMINE PO* 25 MG PO ONE (02:00)
[2017-02-03] MEDS ORDERED: Haloperidol TAB* 1 MG PO PRN (05:30)
[2017-02-03] MEDS ORDERED: Haloperidol TAB* 1 MG ONE (05:41)
[2017-02-03] MEDS: NS 0.9% 1000 ML* 1,000 ML IV SCH (07:26)
[2017-02-03] MEDS: DULoxetine DR CAP* 20 MG CAP.DR PO SCH (08:18)
[2017-02-03] MEDS: Calcium Carbonate CHEW TAB* 500 MG (TUMS) PO SCH (08:18)
[2017-02-03] MEDS: Famotidine TAB* 20 MG PO SCH (08:19)
[2017-02-03] MEDS: Pregabalin CAP(*) 50 MG PO SCH (08:19)
[2017-02-03] MEDS: ValACYclovir (*) 500 MG TAB PO SCH (08:19)
[2017-02-03] MEDS: [UNRECOGNIZED DRUG - OTHER] PO SCH (08:19)
[2017-02-03] MEDS: predniSONE TAB* 10 MG PO SCH (08:19)
[2017-02-03 10:25] VITALS: BP 124/73
[2017-02-05] MEDS ORDERED: Cholecalciferol TAB* 1000 UNITS PO SCH (09:00)
== END 2017-02-03 12:50 | disposition home or self-care (01) ==
LOC: ED 13:08 → MEDTELE 18:50
PROVIDERS: ADMIT Internal Medicine Hematology & Oncology; ATTEND Internal Medicine Hematology & Oncology
DX: E86.0 Dehydration (principal); R53.83 Other fatigue; C85.90 Non-Hodgkin lymphoma, unspecified, unspecified site; Z79.899 Other long term (current) drug therapy; Z88.8 Allergy status to other drugs, medicaments and biological substances; N39.0 Urinary tract infection, site not specified; R53.1 Weakness; R00.2 Palpitations
CPT/HCPCS: 36415; 71010; 80048; 80053; 81003; 81015; 83605; 84484; 85025; 85610; 85730; 87040; 87086; 96361; 96365; 99284; A9270-GY; G0378; J0696; J7512

== ENCOUNTER 2017-02-12 10:21 | Inpatient (IN) | payer MEDICARE, OTHER ==
[2017-02-12] MEDS ORDERED: NS 0.9% 1000 ML* 1,000 ML IV ONE (10:53)
[2017-02-12] MEDS ORDERED: Cefepime(*) 1 GM in NS 0.9% 50 ML* 50 ML IVPB ONE (11:06)
[2017-02-12 11:32] LABS: Hematocrit 34 % (35-47); Mean Corpuscular HGB Conc 33 g/dl (31-36); Mean Corpuscular Hemoglobin 30 pg (27-31); Mean Corpuscular Volume 93 fL (80-97); Mean Platelet Volume 8 um3 (7.4-10.4); Red Blood Count 3.65 10^6/ul (4.0-5.4); Red Cell Distribution Width 19 % (10.5-15); White Blood Count 4.2 10^3/ul (3.5-10.8)
[2017-02-12 11:49] LABS: Troponin I 0.02 ng/mL (<0.04)
[2017-02-12 11:50] LABS: ALT 13 U/L (7-52); AST 9 U/L (13-39); Albumin 2.8 g/dL (3.2-5.2); Alkaline Phosphatase 284 U/L (34-104); Anion Gap 6 mmol/L (2-11); BUN/Creatinine Ratio 20.8 (8-20); Blood Urea Nitrogen 21 mg/dL (6-24); CO2 Carbon Dioxide 28 mmol/L (22-32); Calcium 8.9 mg/dL (8.6-10.3); Chloride 104 mmol/L (101-111); Creatine Kinase < 10 U/L (10-223); EGFR African American 66.7 (>60); EGFR Non-African American 51.8 (>60); Globulin 2.7 g/dL (2-4); Glucose 91 mg/dL (70-100); Magnesium 2.3 mg/dL (1.9-2.7); Potassium 4.5 mmol/L (3.5-5.0); Sodium 138 mmol/L (133-145); Total Protein 5.5 g/dL (6.4-8.9)
[2017-02-12 12:07] LABS: Acetaminophen < 15 mcg/mL
[2017-02-12 12:21] LABS: Erythrocyte Sed Rate 37 mm/Hr (0-40)
[2017-02-12 12:22] LABS: TSH (Thyroid Stimulating Horm) 2.04 mcIU/mL (0.34-5.60)
--- NOTE | 2017-02-12 13:03 | RAD ---
HISTORY: Altered mental status COMPARISONS: February 01, 2017 VIEWS: 1: frontal portable view of the chest at 12:30 PM FINDINGS: LINES AND TUBES: There is left-sided chest port from a left internal jugular vein approach with the tip overlying the cavoatrial junction. CARDIOMEDIASTINAL SILHOUETTE: The aorta is tortuous. The cardiomediastinal silhouette is otherwise normal for portable technique. PLEURA: The costophrenic angles are sharp. No pleural abnormalities are noted. LUNG PARENCHYMA: The lung volumes are low. ABDOMEN: The upper abdomen is clear. There is no subphrenic gas. BONES AND SOFT TISSUES: No bone or soft tissue abnormalities are noted. IMPRESSION: LOW LUNG VOLUMES. LINES AND TUBES ABOVE. NO ACTIVE CARDIOPULMONARY DISEASE.
[2017-02-12] MEDS ORDERED: Calcium Carbonate CHEW TAB* 500 MG (TUMS) PO PRN (13:34)
[2017-02-12] MEDS ORDERED: Cetirizine* 10 MG TAB PO PRN (13:34)
[2017-02-12] MEDS ORDERED: Acetaminophen TAB* 325 MG PO PRN (13:37)
[2017-02-12] MEDS ORDERED: Cholecalciferol TAB* 1000 UNITS PO SCH (14:00)
[2017-02-12] MEDS: NS 0.9% 1000 ML* 1,000 ML IV SCH (16:00)
[2017-02-12] MEDS: Enoxaparin(*) 30 MG/0.3 ML SYR SUBCUT SCH (17:07)
[2017-02-12] MEDS: Pregabalin CAP(*) 50 MG PO SCH (20:13)
[2017-02-12] MEDS: Famotidine TAB* 20 MG PO SCH (20:13)
[2017-02-12] MEDS: Metoprolol Tartrate TAB* 25 MG PO SCH (20:14)
--- NOTE | 2017-02-12 21:40 | HP ---
ADMISSION HISTORY AND PHYSICAL: DATE OF ADMISSION: 02/12/17 REASON FOR ADMISSION: Fever, confusion, recurrent lymphoma. HISTORY OF PRESENT ILLNESS: Lilian Morel is an 86-year-old female with a history of lymphoma dating back to 2001. She was started on a new medication idelalisib 150 mg b.i.d. approximately 3 to 4 weeks ago. She had failed several other recent medications for recurrent lymphoma. She has had severe problems with skin involvement and itching. Benadryl has only been marginally successful in terms of helping this. She has also been treated on a regular basis with steroids with prednisone at 40 mg a day to try to relieve some of her symptoms. She was recently hospitalized on 02/01/17 with fatigue and dehydration. This has also occurred after she had a trial, which failed of using Remeron to help her symptoms. She continues to have severe problems with itching. She was most recently seen in the office by Dr. Orourke on 02/10/17. At that point, she reportedly was more awake; however, prior 2 days her itching was seemed somewhat less with the prednisone. She was not eating well, but was eating somewhat. A decision was made to continue on her regular medications at that time and had a hospital DNR form was also instituted at that time. She was continued on Joyce and Zantac and actually has her Benadryl held. She presents to the emergency room today with increasing her lethargy and confusion along with fever to 100.7. She continues to have ulcerations over her entire body and continues to scratch these incessantly. PAST MEDICAL HISTORY: Lymphoma originally diagnosed in 2001. Diffuse large B- cell lymphoma treated with CHOP chemotherapy in 2001, recurrence treated with Rituxan in 2004. In December of 2015, developed herpes zoster and significant problems with pain at the site which is persistent ever since. She had progressive disease with lymphadenopathy and marked infiltration of the skin of the right arm from lymphoma. PET scan revealed multiple hypermetabolic lymph nodes both above and below the diaphragm. Biopsy of the right groin revealed follicular lymphoma grade IIIA. Just as she was about to start this therapy, she developed a hip fracture in October of 2016, which was repaired. She then received Rituxan in early November of 2016, but with rapid growth of tumor, was switched to bendamustine and Rituxan, received 2 cycles and tolerated that poorly. She was changed to idelalisib approximately 3 weeks ago. No hypertension, diabetes, AR, or CVA. No significant previous surgical history. Other than moderate aortic stenosis, hypertension. GERD. Hyperlipidemia. History of remote breast cancer, status post bilateral mastectomies. Partial small bowel resection with one of her lymphoma occurrences. MEDICATIONS: At the time of admission include: 1. Valacyclovir 500 mg daily. 2. Ranitidine 150 mg b.i.d. 3. Prednisone 40 mg daily. 4. Metoprolol 12.5 mg daily. 5. Lyrica 50 mg b.i.d. 6. Idelalisib 150 mg b.i.d. 7. Cymbalta 20 mg daily. 8. Joyce 180 mg daily. 9. Advil p.r.n. ALLERGIES: Include ERYTHROMYCIN, METOPROLOL, PENICILLIN, ASPIRIN, GLUTEN, CARVEDILOL, IRON. FAMILY HISTORY: Mother with breast cancer. No other family history of malignancies. SOCIAL HISTORY: The patient lives alone. She usually ambulates unassisted; her son is involved and lives nearby. No alcohol or tobacco. REVIEW OF SYSTEMS: She is fairly lethargic at the time of this visit and denies any symptoms, specifically denies fevers, sweats, chills, cough, sore throat, shortness of breath, chest pain, palpitations, or any GI or complaints. PHYSICAL EXAMINATION GENERAL: An 86-year-old female, who is extremely lethargic, lying reasonably comfortably on the the emergency room bed. VITAL SIGNS: Blood pressure 119/77, pulse 118 and at times in the 120s and 130s , temperature of 100.7. HEENT: PERRL, EOMI. Extremely dry mucous membranes. Poor dentition. No palpable cervical, supraclavicular, or axillary adenopathy. LUNGS: Clear. HEART: 2 to 3/6 systolic ejection murmur with extrasystoles. BREASTS: Status post bilateral mastectomy. ABDOMEN: Soft and nontender without masses or organomegaly. EXTREMITIES: No significant edema. There are skin lesions noted throughout with diffuse ulcerations at all of her extremities and on her torso. NEUROLOGIC EXAM: Moves all extremities. Thinks it is Wednesday and that is February. She is not sure where she is or why she is here. DIAGNOSTIC STUDIES/LAB DATA: White count 4200, hematocrit 34, hemoglobin 11, platelet count of 179,000 with essentially normal differential, and an ANC of 3700. Electrolytes: Sodium 138, potassium 4.5, chloride 104, bicarb 28, BUN 21 , creatinine 1.01, glucose 91. Alk phos 284, remaining LFTs unremarkable. Albumin is 2.8. Chest x-ray is without any focal infiltrates. With low lung volumes. IMPRESSION: 1. An 86-year-old female with recurrent lymphoma, currently on idelalisib, which she has been on for approximately 3 to 4 weeks. She continues to have severe ulcerations and itching in the skin, which may be slightly better per Dr. Orourke's note of 2 days ago. She now presents with worsening lethargy, confusion and fever. There is no obvious source other than her skin. She will receive cefepime to cover her broadly as we do not have an active source. Cultures including blood cultures are pending at the present time. 2. Multiple skin excoriations. She will be maintained on prednisone and on antihistamine blockers in an attempt to help the itching. 3. DVT prophylaxis with Lovenox. 4. Hypertension. She will be maintained on her usual medications for this. 5. Tachycardia likely related to fever and dehydration. She will be maintained on the monitor to watch this more carefully. 6. The patient has recently signed out of hospital DNR done at the time of office visit with Dr. Orourke and DNR/DNI status will be maintained. [id number]/[facility] #: [id number] [facility] HOSPITALKelechi
[2017-02-12] MEDS: HYDROmorphone INJ* 2 MG/ML CARPUJECT SYRINGE IV PRN (21:44)
[2017-02-12] MEDS: Cefepime 2 GM in Dextrose(*) 2 GM/50 ML BAG IV SCH (23:08)
[2017-02-13] MEDS: NS 0.9% 1000 ML* 1,000 ML IV SCH ×2 (03:07→13:38)
[2017-02-13 05:21] LABS: Hematocrit 33 % (35-47); Hemoglobin 10.6 g/dl (12.0-16.0); Mean Corpuscular HGB Conc 33 g/dl (31-36); Mean Corpuscular Hemoglobin 31 pg (27-31); Mean Corpuscular Volume 94 fL (80-97); Mean Platelet Volume 8 um3 (7.4-10.4); Red Blood Count 3.49 10^6/ul (4.0-5.4); Red Cell Distribution Width 20 % (10.5-15); White Blood Count 3.6 10^3/ul (3.5-10.8)
[2017-02-13 05:38] LABS: BUN/Creatinine Ratio 21.9 (8-20); Calcium 8.1 mg/dL (8.6-10.3); EGFR African American 70.7 (>60); Potassium 4.2 mmol/L (3.5-5.0)
[2017-02-13] MEDS: HYDROmorphone INJ* 2 MG/ML CARPUJECT SYRINGE IV PRN ×2 (06:18→18:24)
[2017-02-13] MEDS: Pregabalin CAP(*) 50 MG PO SCH ×2 (07:46→20:09)
[2017-02-13] MEDS: predniSONE TAB* 10 MG PO SCH (07:46)
[2017-02-13] MEDS: DULoxetine DR CAP* 20 MG CAP.DR PO SCH (07:46)
[2017-02-13] MEDS: ValACYclovir (*) 500 MG TAB PO SCH (07:46)
[2017-02-13] MEDS: Metoprolol Tartrate TAB* 25 MG PO SCH ×2 (07:47→20:08)
--- NOTE | 2017-02-13 09:43 | PN ---
Progress Note - Progress Note Date of Service: 02/13/17 SOAP: Subjective: []Not much better. Delirium overnight and not responding to questions today. Has mits on hands. Acetaminophen (Tylenol Tab*) 650 mg PO Q6H PRN PRN Reason: FEVER Last Admin: 02/12/17 20:13 Dose: 650 mg Calcium Carbonate (Tums*) 250 mg PO TID PRN PRN Reason: INDIGESTION Cetirizine HCl (Zyrtec*) 10 mg PO QAM PRN; Protocol PRN Reason: ITCHING Cholecalciferol (Vitamin D Tab*) 5,000 units PO FR [facility] Last Admin: 02/12/17 16:00 Dose: Not Given Duloxetine HCl (Cymbalta Cap*) 20 mg PO DAILY [facility] Last Admin: 02/13/17 07:46 Dose: 20 mg Enoxaparin Sodium (Lovenox(*)) 30 mg SUBCUT Q24H [facility] Last Admin: 02/12/17 17:07 Dose: 30 mg Famotidine (Pepcid Tab*) 20 mg PO BEDTIME [facility] Last Admin: 02/12/17 20:13 Dose: 20 mg Haloperidol Lactate (Haldol Inj Iv/Im*) 1 mg IV SLOW PU Q2H PRN PRN Reason: ANXIETY Hydromorphone HCl (Dilaudid Inj*) 0.5 mg IV Q2H PRN PRN Reason: PAIN Last Admin: 02/13/17 06:18 Dose: 0.5 mg Cefepime HCl (Maxipime 2 Gm In Dextrose Duplex (*)) 2 gm in 50 mls @ 100 mls/ hr IV Q12H [facility] Last Admin: 02/12/17 23:08 Dose: 100 mls/hr Sodium Chloride (Ns 0.9% 1000 Ml*) 1,000 mls @ 100 mls/hr IV PER RATE [facility] Last Admin: 02/13/17 03:07 Dose: 100 mls/hr Metoprolol Tartrate (Lopressor Tab*) 12.5 mg PO BID [facility] Last Admin: 02/13/17 07:47 Dose: 12.5 mg Prednisone (Deltasone Tab*) 40 mg PO QAM [facility] Last Admin: 02/13/17 07:46 Dose: 40 mg Pregabalin (Lyrica Cap(*)) 50 mg PO BID [facility] Last Admin: 02/13/17 07:46 Dose: 50 mg Valacyclovir HCl (Valtrex 500 Mg (*)) 500 mg PO DAILY [facility] PRN Reason: Protocol Last Admin: 02/13/17 07:46 Dose: 500 mg Objective: [] Vital Signs Temp Pulse Resp BP Pulse Ox 97.5 F 119 20 139/83 92 02/13/17 07:34 02/13/17 07:34 02/13/17 09:35 02/13/17 07:34 02/13/17 07:34 HEENT - Mucosa dry, chronic dental disease Neuro - Responding to voice but not oriented. Very sleepy. Skin with diffuse ulcerations CTA RRR S1S2 +BS NT ND Ext with no change in SQ nodularity right arm, ulceration on fore arm stable. Assessment: []86 year old female with grade 3 FL on idelalisib after non response to BR chemotherapy. She has not tolerated therapy well with continued decrease in functional status and increased confusion. Based on cutaneous disease there has been modest effectiveness. Differential for acute illness is infection, skin source most likely, delirium from cancer medication, progressive disease, acute [employer]EW[employer] event or sub-dural hematoma. Discussed with son that I do think we can treat her lymphoma further. Goal is to recover from acute event and then Hospice. Plan: []1. Confusion. - Minimize narcotics and use Haldol. - Hold chemotherapy. - Check CT brain today. - Continue antibiotics for possible infection. 2. Dehydration, continue IVF and encourage po 3. Puritis. Famotidine and Zyrtec. Ok to use steroid creams. 4. Continue Prednisone.
--- NOTE | 2017-02-13 10:36 | RAD ---
Edited for charges. HISTORY: Mental status change COMPARISONS: MRI of the head dated January 21, 2016 TECHNIQUE: Multiple contiguous axial CT scans were obtained of the head without intravenous contrast. FINDINGS: HEMORRHAGE/INFARCT: There is no hemorrhage or acute infarct. MASSES/SHIFT: There is no mass or shift. EXTRA-AXIAL SPACES: There is a frontoparietal subdural fluid collection that measures 0.8 cm in depth. This measures simple fluid attenuation, and is most consistent with a chronic subdural hematoma. This has developed when compared to January 21, 2016. SULCI AND VENTRICLES: The sulci and ventricles are normal in size and position for the patient's stated age. CEREBRUM: There are no focal parenchymal abnormalities. BRAINSTEM: There are no focal parenchymal abnormalities. CEREBELLUM: There are no focal parenchymal abnormalities. VESSELS: The vessels are grossly normal. PARANASAL SINUSES: The paranasal sinuses are clear. ORBITS: The orbits are unremarkable. BONES AND SOFT TISSUE: No bone or soft tissue abnormalities are noted. OTHER: None IMPRESSION: CHRONIC APPEARING LEFT FRONTOPARIETAL SUBDURAL HEMATOMA. THERE IS NO SHIFT. [facility]
[2017-02-13] MEDS: Cefepime 2 GM in Dextrose(*) 2 GM/50 ML BAG IV SCH ×2 (10:40→23:35)
--- NOTE | 2017-02-13 13:32 | PN ---
Progress Note - Progress Note Date of Service: 02/13/17 SOAP: Patient seen and examined. 86 yof with hx of recurrent Diffuse B-Cell Lymphoma, presenting with AMS, lethargy and fever. CT revealed Left Chronic SDH. Would recommend MRI of brain and consider Left SDH drainage, if medical condition allows, although prognosis may be guarded, due to patient's age, medical condition and chance of SDH recurrence. Full note dictated #[id number]# Thank you very much for allowing me to participate in the care of this patient, Marii Fitzpatrick MD
[2017-02-13] MEDS: Enoxaparin(*) 30 MG/0.3 ML SYR SUBCUT SCH (14:06)
--- NOTE | 2017-02-13 18:14 | ED ---
Kirstin Correa Thomas, scribed for Otis Velazquez MD on 02/12/17 at 1130 . Complex/Multi-Sys Presentation - HPI Summary HPI Summary: The patient is an 86 y/o F with a Hx of Non-Hodgkins lymphoma c/o many wounds over her entire body. The patient has experienced diffuse pruritus over the last few weeks and the wounds are secondary to frequent scratching and picking. The patient has treated the pruritus with Benadryl. The patient is undergoing chemotherapy and her oncologist is Dr. Orourke. The patient c/o dehydration, lethargy, inability to swallow well, and cough. She denies diarrhea and back pain. Her son is present in the examination room. - History Of Current Complaint Chief Complaint: EDGeneral Time Seen by Provider: 02/12/17 10:29 Hx Obtained From: Patient, Family/Dust Collector - son is present in the ED Onset/Duration: Lasting Weeks - pruritus over the last few weeks, Still Present Timing: Constant Severity Currently: Severe Aggravating Factor(s): Wounds aggravated by scratching Alleviating Factor(s): None. Associated Signs And Symptoms: Positive: Other - Wounds to body, pruritus, dehydration, lethargy, "inability to swallow well", cough; NEGATIVE: diarrhea, back pain Related History: Other - Hx of Non-Hodgkin's lymphoma - Allergies/Home Medications Allergies/Adverse Reactions: Allergies Allergy/AdvReac Type Severity Reaction Status Date / Time Gluten Meal Allergy Severe ABD PAIN, Verified 02/01/17 13:14 DIARRHEA Aspirin Allergy See Comment Verified 02/01/17 13:14 Carvedilol Allergy Unknown Verified 02/01/17 13:14 Reaction Details Penicillins Allergy See Comment Verified 02/01/17 13:14 Acebutolol AdvReac Stomach Verified 02/01/17 13:14 Cramps Atenolol AdvReac See Comment Verified 02/01/17 13:14 Erythromycin AdvReac See Comment Verified 02/01/17 13:14 Iron AdvReac See Comment Verified 02/01/17 13:14 Metoprolol AdvReac See Comment Verified 02/01/17 13:14 Propranolol AdvReac See Comment Verified 02/01/17 13:14 Home Medications: Home Medications Acetaminophen [Acetaminophen Extra Stren] 500 mg PO DAILY PRN 02/12/17 [History Confirmed 02/12/17] Fexofenadine (NF) [Joyce 180 (NF)] 180 mg PO QAM PRN 02/12/17 [History Confirmed 02/12/17] Metoprolol Tartrate TAB* [Lopressor TAB*] 12.5 mg PO BID 02/12/17 [History Confirmed 02/12/17] Ranitidine TAB (NF) [Zantac TAB (NF)] 150 mg PO BID 02/12/17 [History Confirmed 02/12/17] PMH/Surg Hx/FS Hx/Imm Hx Previously Healthy: No Endocrine/Hematology History: Reports: Other Endocrine/Hematological Disorders - enlarged lymph nodes Denies: Hx Diabetes Cardiovascular History: Reports: Hx Hypercholesterolemia, Hx Hypertension Denies: Hx Pacemaker/ICD GI History: Reports: Hx Gastroesophageal Reflux Disease, Hx Irritable Bowel, Other GI Disorders - eats soft food, has hemorrhoids History: Denies: Hx Renal Disease, Other Problems/Disorders Musculoskeletal History: Reports: Hx Tendonitis - shoulders Denies: Hx Arthritis, Hx Osteoporosis Sensory History: Reports: Hx Cataracts - natanael, Hx Contacts or Glasses, Hx Hearing Problem - [place] Denies: Hx Hearing Aid Opthamlomology History: Reports: Hx Cataracts - natanael, Hx Contacts or Glasses Neurological History: Denies: Other Neuro Impairments/Disorders Psychiatric History: Denies: Hx Anxiety, Hx Panic Disorder - Cancer History Cancer Type, Location and Year: Breast CA bilateral. lymphoma- sm. bowel ca. skin ca Hx Chemotherapy: Yes - 3 weeks ago - Surgical History Surgery Procedure, Year, and Place: surgical intervention for sm. bowel cancer, [facility] [place], 2004. bilat. radical mastectomy 1978,[facility] [place] Hx Anesthesia Reactions: No Infectious Disease History: Unable to Obtain/Confirm Infectious Disease History: Reports: Hx Shingles Denies: History Other Infectious Disease, Traveled Outside the [place] in Last 30 Days - Family History Known Family History: Positive: Other - stroke, CA, shingles Negative: Cardiac Disease, Hypertension, Diabetes - Social History Alcohol Use: Rare Alcohol Amount: sip quentro 1-2 x per week Hx Substance Use: No Substance Use Type: Reports: None Hx Tobacco Use: No Smoking Status (MU): Never Smoked Tobacco Review of Systems Positive: Other - Dehydration, lethargy Positive: Other - "inability to swallow well" Positive: Cough Negative: Diarrhea Positive: Other - NEGATIVE: back pain Positive: Other - Pruritus, many wounds to entire body All Other Systems Reviewed And Are Negative: Yes Physical Exam - Summary Physical Exam Summary: VITAL SIGNS: Reviewed. GENERAL: Patient is an ill-appearing female who is lying comfortable in the stretcher. Patient is not in any acute respiratory distress. HEAD AND FACE: No signs of trauma. No ecchymosis, hematomas or skull depressions. No sinus tenderness. EYES: PERRLA, EOMI x 2, No injected conjunctiva, no nystagmus. EARS: Hearing grossly intact. Ear canals and tympanic membranes are within normal limits. MOUTH: Oropharynx within normal limits. Dry oral mucosa. NECK: Supple, trachea is midline, no adenopathy, no JVD, no carotid bruit, no c- spine tenderness, neck with full ROM. CHEST: Symmetric, no tenderness at palpation LUNGS: Clear to auscultation bilaterally. No wheezing or crackles. CVS: Regular rate and rhythm, S1 and S2 present, no murmurs or gallops appreciated. ABDOMEN: Soft, non-tender. No signs of distention. No rebound no guarding, and no masses palpated. Bowel sounds are normal. EXTREMITIES: FROM in all major joints, no edema, no cyanosis or clubbing. NEURO: Alert and oriented x 3. No acute neurological deficits. Speech is normal and follows commands. SKIN: Dry and warm. There are diffuse skin wounds secondary to the patient's picking of wounds. Triage Information Reviewed: Yes Vital Signs On Initial Exam: Initial Vitals Temp Pulse Resp BP Pulse Ox 100.7 F 129 24 119/77 95 02/12/17 10:24 02/12/17 10:24 02/12/17 10:24 02/12/17 10:24 02/12/17 10:24 Vital Signs Reviewed: Yes Diagnostics - Vital Signs Vital Signs Temp Pulse Resp BP Pulse Ox 02/12/17 10:30 128 110/80 94 02/12/17 10:28 119/77 02/12/17 10:24 100.7 F 129 24 119/77 95 - Laboratory Lab Results: Lab Results 02/12/17 02/12/17 02/12/17 Range/Units 11:18 11:18 11:18 WBC 4.2 (3.5-10.8) 10^3/ul RBC 3.65 L (4.0-5.4) 10^6/ul Hgb 11.0 L (12.0-16.0) g/dl Hct 34 L (35-47) % MCV 93 (80-97) fL MCH 30 (27-31) pg MCHC 33 (31-36) g/dl RDW 19 H (10.5-15) % Plt Count 179 (150-450) 10^3/ul MPV 8 (7.4-10.4) um3 Neut % (Auto) 87.4 H (38-83) % Lymph % (Auto) 1.9 L (25-47) % [place] % (Auto) 6.8 (1-9) % Eos % (Auto) 3.0 (0-6) % Baso % (Auto) 0.9 (0-2) % Absolute Neuts (auto) 3.7 (1.5-7.7) 10^3/ul Absolute Lymphs (auto) 0.1 L (1.0-4.8) 10^3/ul Absolute Monos (auto) 0.3 (0-0.8) 10^3/ul Absolute Eos (auto) 0.1 (0-0.6) 10^3/ul Absolute Basos (auto) 0 (0-0.2) 10^3/ul Absolute Nucleated RBC 0 10^3/ul Nucleated RBC % 0 ESR 37 (0-40) mm/Hr Sodium 138 (133-145) mmol/L Potassium 4.5 (3.5-5.0) mmol/L Chloride 104 (101-111) mmol/L Carbon Dioxide 28 (22-32) mmol/L Anion Gap 6 (2-11) mmol/L BUN 21 (6-24) mg/dL Creatinine 1.01 H (0.51-0.95) mg/dL Est GFR ( Amer) 66.7 (>60) Est GFR (Non-Af Amer) 51.8 (>60) BUN/Creatinine Ratio 20.8 H (8-20) Glucose 91 (70-100) mg/dL Lactic Acid 1.7 (0.5-2.0) mmol/L Calcium 8.9 (8.6-10.3) mg/dL Magnesium 2.3 (1.9-2.7) mg/dL Total Bilirubin 0.80 (0.2-1.0) mg/dL AST 9 L (13-39) U/L ALT 13 (7-52) U/L Alkaline Phosphatase 284 H (34-104) U/L Ammonia (16-53) mol/L Total Creatine Kinase < 10 L (10-223) U/L Troponin I 0.02 (<0.04) ng/mL C-React Prot High Sens 62.18 mg/L Total Protein 5.5 L (6.4-8.9) g/dL Albumin 2.8 L (3.2-5.2) g/dL Globulin 2.7 (2-4) g/dL Albumin/Globulin Ratio 1.0 (1-3) TSH 2.04 (0.34-5.60) mcIU/mL Acetaminophen < 15 mcg/mL 02/12/17 Range/Units 13:15 WBC (3.5-10.8) 10^3/ul RBC (4.0-5.4) 10^6/ul Hgb (12.0-16.0) g/dl Hct (35-47) % MCV (80-97) fL MCH (27-31) pg MCHC (31-36) g/dl RDW (10.5-15) % Plt Count (150-450) 10^3/ul MPV (7.4-10.4) um3 Neut % (Auto) (38-83) % Lymph % (Auto) (25-47) % [place]ow % (Auto) (1-9) % Eos % (Auto) (0-6) % Baso % (Auto) (0-2) % Absolute Neuts (auto) (1.5-7.7) 10^3/ul Absolute Lymphs (auto) (1.0-4.8) 10^3/ul Absolute Monos (auto) (0-0.8) 10^3/ul Absolute Eos (auto) (0-0.6) 10^3/ul Absolute Basos (auto) (0-0.2) 10^3/ul Absolute Nucleated RBC 10^3/ul Nucleated RBC % ESR (0-40) mm/Hr Sodium (133-145) mmol/L Potassium (3.5-5.0) mmol/L Chloride (101-111) mmol/L Carbon Dioxide (22-32) mmol/L Anion Gap (2-11) mmol/L BUN (6-24) mg/dL Creatinine (0.51-0.95) mg/dL Est GFR ( Amer) (>60) Est GFR (Non-Af Amer) (>60) BUN/Creatinine Ratio (8-20) Glucose (70-100) mg/dL Lactic Acid (0.5-2.0) mmol/L Calcium (8.6-10.3) mg/dL Magnesium (1.9-2.7) mg/dL Total Bilirubin (0.2-1.0) mg/dL AST (13-39) U/L ALT (7-52) U/L Alkaline Phosphatase (34-104) U/L Ammonia 41 (16-53) mol/L Total Creatine Kinase (10-223) U/L Troponin I (<0.04) ng/mL C-React Prot High Sens mg/L Total Protein (6.4-8.9) g/dL Albumin (3.2-5.2) g/dL Globulin (2-4) g/dL Albumin/Globulin Ratio (1-3) TSH (0.34-5.60) mcIU/mL Acetaminophen mcg/mL Result Diagrams: 02/13/17 05:00 02/13/17 05:00 Lab Statement: Any lab studies that have been ordered have been reviewed, and results considered in the medical decision making process. - Radiology CXR Xray Interpretation: No Acute Changes - LOW LUNG VOLUMES. LINES AND TUBES ABOVE. NO ACTIVE CARDIOPULMONARY DISEASE. ED Physician has reviewed this report and agrees. Radiology Interpretation Completed By: Radiologist - EKG 10:27 Cardiac Rate: Tachycardia - 124 BPM EKG Rhythm: Sinus Tachycardia EKG Interpretation: Similar to previous EKG on 01/18/17. Complex Multi-Symp Course/Dx Assessment/Plan: The patient is an 86 y/o F with a Hx of Non-Hodgkins lymphoma c/o many wounds over her entire body. The patient has experienced diffuse pruritus over the last few weeks and the wounds are secondary to frequent scratching and picking. The patient has treated the pruritus with Benadryl. The patient is undergoing chemotherapy and her oncologist is Dr. Orourke. The patient c /o dehydration, lethargy, inability to swallow well, and cough. She denies diarrhea and back pain. Her son is present in the examination room. Test results show a chronic anemia and creatinine 1.01. CXR shows no active cardiopulmonary disease. However, the patient looks very ill. She is tachycardic , slightly hypotensive, and febrile; therefore, I gave her Cefepime. At this time, I discussed the findings with Dr. Benavidez and after his assessment he accepts the patient for admission. Final impression: sepsis, fever. - Diagnoses Provider Diagnoses: Weakness, Fever, SIRS (systemic inflammatory response syndrome) - Physician Notifications Discussed Care Of Patient With: Omkar Benavidez Time Discussed With Above Provider: 11:12 Instructed by Provider To: Other - I consulted with Dr. Benavidez, oncology, who will accept the patient for admission to [facility] [place]. Discharge - Discharge Plan Condition: Fair Disposition: ADMITTED TO [facility] The documentation as recorded by the Kirstin valdez Thomas accurately reflects the service I personally performed and the decisions made by me, Otis Velazquez MD.
[2017-02-13] MEDS: Famotidine TAB* 20 MG PO SCH (20:09)
--- NOTE | 2017-02-13 20:16 | CONS ---
CONSULTATION REPORT: DATE OF CONSULT: 02/13/17 HISTORY OF PRESENT ILLNESS: The patient is a pleasant 86-year-old female with a history of lymphoma since 2001. The patient has a long history of chemotherapy with skin involvement and itching. She had been recently hospitalized because of decreased p.o. intake. Today, she presented to the hospital with progressive confusion over the last several days. Requested to see the patient by Dr. Orourke because of CT scan findings of the brain consistent with left chronic small subdural hematoma. The patient is reported to have decreased mental status over the last 2 weeks. She also was diagnosed with severe ulcerations and itching of the skin and fever. On initial workup, she underwent CT scan of the brain that revealed a small left chronic subdural hematoma without midline shift. The patient's history was obtained from the patient's chart and the nurse, as the patient not able to give history. No reported history of trauma. The patient is confused at her baseline as per the patient's son report. PAST MEDICAL HISTORY: Diffuse large B-cell lymphoma, treated with [facility] chemotherapy initially; herpes zoster; aortic stenosis; hypertension; GERD; hyperlipidemia. PAST SURGICAL HISTORY: History of remote breast cancer, status post bilateral mastectomies; partial small bowel resection with one of her lymphoma occurrences. MEDICATIONS: The patient on admission was on: 1. Valacyclovir. 2. Ranitidine. 3. Prednisone. 4. Metoprolol. 5. Lyrica. 6. Idelalisib. 7. Cymbalta. 8. Joyce. 9. Advil. ALLERGIES: Include ERYTHROMYCIN, METOPROLOL, PENICILLIN, ASPIRIN, GLUTEN, CARVEDILOL, IRON. FAMILY HISTORY: Mother with breast cancer. SOCIAL HISTORY: The patient lives alone. Tobacco, negative. Alcohol, negative. PHYSICAL EXAM: The patient is not in any acute distress. She is awake, she is oriented x1. She follows commands. Her pupils are equal and reactive. Cranial nerves II through XII are grossly intact, although her exam is somewhat limited because of the patient's poor participation. She moves all extremities. She has some mild weakness of the right upper and lower extremity 4/5, although her exam is somewhat limited. Sensory: Difficult to assess, but the patient withdraws to pain to all extremities. Deep tendon reflex +1 bilaterally. No clonus or Babisnki. No pain or tenderness to palpation of cervical, thoracic, or lumbar spine. The patient has full range of motion of cervical spine. No neck stiffness. The patient does have multiple skin ulcerations throughout all her extremities and torso. DIAGNOSTIC STUDIES: The patient had a CT scan of her brain on 02/13/17, revealing moderate left chronic-appearing subdural hematoma of approximately 1.2 cm in diameter without evidence of midline shift, although there is some mild displacement of sulci on the left hemisphere. This is new compared to the previous the patient's brain MRI from 01/21/16. ASSESSMENT: The patient is a pleasant 86-year-old female with history of recurrent diffuse large B-cell lymphoma, on chemotherapy, who presents with altered mental status, confusion, and fever with CT scan finding consistent with left chronic subdural hematoma. PLAN: The patient at this point is undergoing further workup to exclude other etiologies of her altered mental status. Nevertheless, there is some mild mass effect of the left hemisphere due to the subdural hematoma, although no midline shift is identified. At this point, as we discussed with Dr. Orourke and we will obtain an MRI of her brain to exclude the possibility of stroke or infection and would optimize the patient medically. The patient may benefit from left- sided km holes versus mini- craniotomy for evacuation/drainage of her left subdural hematoma if her medical condition allows. Nevertheless, the outcome may not be optimal because of the patient's age, comorbidities, and possibility of recurrence of subdural hematoma. I attempted to contact the patient's son to discuss the patient's condition. We will be happy to follow the patient with you. Thank you very much for allowing us to participate in the care of this patient. Please do not hesitate to contact our office in case you have any further questions or concerns regarding the care of this patient. Laureano Fitzpatrick MD [id number]/[facility] #: [id number] BESSY
[2017-02-14] MEDS: NS 0.9% 1000 ML* 1,000 ML IV SCH ×3 (00:26→22:10)
[2017-02-14] MEDS: HYDROmorphone INJ* 2 MG/ML CARPUJECT SYRINGE IV PRN (05:14)
[2017-02-14 05:25] LABS: Hematocrit 29 % (35-47); Hemoglobin 9.3 g/dl (12.0-16.0); Mean Corpuscular HGB Conc 32 g/dl (31-36); Mean Corpuscular Hemoglobin 30 pg (27-31); Mean Corpuscular Volume 94 fL (80-97); Mean Platelet Volume 9 um3 (7.4-10.4); Red Blood Count 3.07 10^6/ul (4.0-5.4); Red Cell Distribution Width 20 % (10.5-15); White Blood Count 3.6 10^3/ul (3.5-10.8)
[2017-02-14 05:41] LABS: Albumin 2.3 g/dL (3.2-5.2); BUN/Creatinine Ratio 26.1 (8-20); EGFR African American 74.3 (>60); EGFR Non-African American 57.7 (>60); Globulin 2.3 g/dL (2-4); Potassium 3.9 mmol/L (3.5-5.0); Total Bilirubin 0.7 mg/dL (0.2-1.0); Total Protein 4.6 g/dL (6.4-8.9)
[2017-02-14] MEDS: Pregabalin CAP(*) 50 MG PO SCH ×2 (07:41→20:24)
[2017-02-14] MEDS: predniSONE TAB* 10 MG PO SCH (07:41)
[2017-02-14] MEDS: ValACYclovir (*) 500 MG TAB PO SCH (07:41)
[2017-02-14] MEDS: DULoxetine DR CAP* 20 MG CAP.DR PO SCH (07:41)
[2017-02-14] MEDS: Metoprolol Tartrate TAB* 25 MG PO SCH ×2 (07:42→20:24)
[2017-02-14] MEDS: ceFAZolin 1 GM VIAL(*) 1 GM in NS 0.9% 50 ML* 50 ML IVPB SCH ×2 (09:24→16:00)
--- NOTE | 2017-02-14 10:26 | PN ---
Subjective Date of Service: 02/14/17 Interval History: This is an 86 yo female with Bcell lymphoma, and HTN who presented with fever and confusion. Patient was empirically started on Cefepime for broad spectrum coverage, source presumed to be skin as she has multiple open ulcerations that she scratches frequently. Due to her persistent encephalopathy a CT of the head was completed yesterday which demonstrated a SDH that appeared to be chronic in nature. Patient did sustain a fall ~3 weeks ago. Blood cultures late yesterday were reported positive for gram positive cocci in 1/4 bottles, now identified as S aureus. Overnight, patient has been screaming out in pain. She has been treated with a couple of doses of IV dilaudid. This am, she remains lethargic and confused. She is able to provide her name and , and seems to recognize the presence of her son. She denies a source of pain at the time of interview. Objective Active Medications: Acetaminophen (Tylenol Tab*) 650 mg PO Q6H [facility] Calcium Carbonate (Tums*) 250 mg PO TID PRN PRN Reason: INDIGESTION Cetirizine HCl (Zyrtec*) 10 mg PO QAM PRN; Protocol PRN Reason: ITCHING Cholecalciferol (Vitamin D Tab*) 5,000 units PO FR [facility] Last Admin: 02/12/17 16:00 Dose: Not Given Duloxetine HCl (Cymbalta Cap*) 20 mg PO DAILY [facility] Last Admin: 02/14/17 07:41 Dose: 20 mg Enoxaparin Sodium (Lovenox(*)) 30 mg SUBCUT Q24H [facility] Last Admin: 02/13/17 14:06 Dose: 30 mg Famotidine (Pepcid Tab*) 20 mg PO BEDTIME [facility] Last Admin: 02/13/17 20:09 Dose: 20 mg Haloperidol Lactate (Haldol Inj Iv/Im*) 1 mg IV SLOW PU Q2H PRN PRN Reason: ANXIETY Hydromorphone HCl (Dilaudid Inj*) 0.5 mg IV Q2H PRN PRN Reason: PAIN Last Admin: 02/14/17 05:14 Dose: 0.5 mg Sodium Chloride (Ns 0.9% 1000 Ml*) 1,000 mls @ 100 mls/hr IV PER RATE [facility] Last Admin: 02/14/17 00:26 Dose: 100 mls/hr Cefazolin Sodium 1 gm/ Sodium (Chloride) 50 mls @ 200 mls/hr IVPB Q8H [facility] Last Admin: 02/14/17 09:24 Dose: 200 mls/hr Metoprolol Tartrate (Lopressor Tab*) 12.5 mg PO BID [facility] Last Admin: 02/14/17 07:42 Dose: 12.5 mg Prednisone (Deltasone Tab*) 40 mg PO QAM [facility] Last Admin: 02/14/17 07:41 Dose: 40 mg Pregabalin (Lyrica Cap(*)) 50 mg PO BID [facility] Last Admin: 02/14/17 07:41 Dose: 50 mg Valacyclovir HCl (Valtrex 500 Mg (*)) 500 mg PO DAILY [facility] PRN Reason: Protocol Last Admin: 02/14/17 07:41 Dose: 500 mg Vital Signs: Temp Pulse Resp BP Pulse Ox 97.5 F 100 16 120/67 90 02/14/17 07:33 02/14/17 07:33 02/14/17 09:12 02/14/17 07:33 02/14/17 07:33 Oxygen Devices in Use Now: None Appearance: Elderly female who appears sedated and somewhat uncomfortable. Respiratory: Symmetrical Chest Expansion and Respiratory Effort, Clear to Auscultation Cardiovascular: NL Sounds; No Murmurs; No JVD, RRR Abdominal: NL Sounds; No Tenderness; No Distention Extremities: - - 1-2+ LE edema Skin: - - multiple opens ulcers without obvious purulent drainage or cellulitis. Accessed port in the L upper chest without erythema Neurological: - - lethargic, oriented to person only Result Diagrams: 02/14/17 05:00 02/14/17 05:00 Additional Lab and Data: . Assess/Plan/Problems-Billing Assessment: This is an 86 yo female with diffuse BCell lymphoma, , HTN and GERD who presented with fever and confusion found to have a SDH, now with 1/4 blood culture bottles growing S.aureus with a likely source being skin. - Patient Problems (1) Encephalopathy Comment: Likely multifactorial due to acute infection and SDH (2) SDH (subdural hematoma) Comment: Appears chronic in nature, bleeding may have occurred at the time of fall ~3 weeks ago Neuro surgery has evaluated the patient and requested MRI of the brain with possible km hole intervention MRI will occur tomorrow (3) Bacteremia Comment: 04/22 blood culture bottles growing S aureus Assume this is a pathogen based on her initial fever and increased confusion Source is likely skin Will switch abx from Cefepime to Cefazolin for better gram + coverage Repeat venous and line cultures drawn TTE requested to eval for valvular vegetations, may require HARISH if blood cultures remain positive Source is likely skin due to multiple areas of ulceration, skin over port is not obviously infected If cultures remain positive, port may need to be removed, especially if additional chemo is not planned (4) B-cell lymphoma Comment: Followed by Dr Orourke No further treatment planned at this time Anticipate referral to Hospice following hospitalization (5) HTN (hypertension) Comment: Normotensive Cont metoprolol (6) Aortic stenosis, moderate (7) HLD (hyperlipidemia) Comment: (8) DVT prophylaxis Comment: No chemical prophylaxis due to presence of SDH (9) DNR (do not resuscitate) Status and Disposition: Inpatient. Anticipate prolonged LOS
[2017-02-14] MEDS: Acetaminophen TAB* 325 MG PO SCH ×2 (11:33→16:00)
--- NOTE | 2017-02-14 12:28 | PN ---
Progress Note - Progress Note Date of Service: 02/14/17 SOAP: Subjective: []No events ON. VVS afebrile. Objective: []AAOx1 CARMELMarina follows commands, Mild Rt side weakness stable. Withdraws to pain with all extremities. Blood cult positive for Staph, on Abx. MRI pending Assessment: []86 yof history of Lymphoma presenting with AMS and CT findings consistent with Lt Cronic SDH Plan: []Monitor VS, Neurochecks MRI of brain to r/o SD empyema, CVA Attempted again to contact patient's son, Otis, via phone and left message. Consider surgical intervention if medically able to be cleared and family understands risks and benefits of procedure and would like to proceed. Thank you very much for allowing me to participate in this patient's care. Please do not hesitate to contact our office if you have any questions or concerns regarding this patient. Laureano Fitzpatrick MD
--- NOTE | 2017-02-14 13:14 | RAD ---
HISTORY: Fever, 29 COMPARISONS: PET CT dated January 13, 2017 VIEWS: 4 , frontal and lateral views of the lumbar spine FINDINGS: ALIGNMENT: There is a scoliotic curvature of the spine. VERTEBRAL BODIES: There is a stable compression deformity of T12. There is multilevel anterolateral marginal osteophyte formation. There is diffuse osteopenia. JOINTS: There is diffuse facet osteoarthritis. INTERVERTEBRAL DISCS: There is diffuse loss of intervertebral disc height. SOFT TISSUE: Unremarkable. OTHER: The patient is status post internal fixation of the right femur. IMPRESSION: 1. LIMITED STUDY. 2. SCOLIOSIS. 3. OSTEOPENIA. 4. DEGENERATIVE DISC DISEASE AND OSTEOARTHRITIS. 5. CHRONIC COMPRESSION DEFORMITY OF T12
[2017-02-14] MEDS: Enoxaparin(*) 30 MG/0.3 ML SYR SUBCUT SCH (16:00)
[2017-02-14 16:36] LABS: Urine Bacteria Absent (Absent); Urine Bilirubin Negative (Negative); Urine Glucose Negative (Negative); Urine Nitrite Negative (Negative)
[2017-02-14] MEDS: Famotidine TAB* 20 MG PO SCH (20:24)
[2017-02-15] MEDS: Acetaminophen TAB* 325 MG PO SCH ×3 (01:02→13:12)
[2017-02-15] MEDS: ceFAZolin 1 GM VIAL(*) 1 GM in NS 0.9% 50 ML* 50 ML IVPB SCH ×3 (01:10→17:43)
[2017-02-15 06:01] LABS: Hematocrit 28 % (35-47); Hemoglobin 9.2 g/dl (12.0-16.0); Mean Corpuscular HGB Conc 33 g/dl (31-36); Mean Corpuscular Hemoglobin 31 pg (27-31); Mean Corpuscular Volume 93 fL (80-97); Mean Platelet Volume 8 um3 (7.4-10.4); Red Blood Count 2.99 10^6/ul (4.0-5.4); Red Cell Distribution Width 20 % (10.5-15); White Blood Count 3.9 10^3/ul (3.5-10.8)
[2017-02-15 06:16] LABS: BUN/Creatinine Ratio 24.4 (8-20); EGFR African American 80.3 (>60); EGFR Non-African American 62.4 (>60); Potassium 3.5 mmol/L (3.5-5.0)
[2017-02-15] MEDS: predniSONE TAB* 10 MG PO SCH (09:27)
[2017-02-15] MEDS: DULoxetine DR CAP* 20 MG CAP.DR PO SCH (09:27)
[2017-02-15] MEDS: Pregabalin CAP(*) 50 MG PO SCH ×2 (09:27→20:52)
[2017-02-15] MEDS: Metoprolol Tartrate TAB* 25 MG PO SCH (09:28)
[2017-02-15] MEDS: ValACYclovir (*) 500 MG TAB PO SCH (09:28)
--- NOTE | 2017-02-15 09:31 | PN ---
Progress Note - Progress Note Date of Service: 02/15/17 SOAP: Subjective: []No events ON On abx, Blood culture positive. Son at bedside, reports that patient was active until a few months ago. She had a reported fall and sustaine hip fracture that was treated surgically. Recovered quite well, until one month ago, when she was reported to have sustained an other fall from the top of the stairs. She was admitted to the hospital at that time, and since then has been mentally declining with confusion. L spine XR reveals chronic T12 compression fracture, severe DDD. Objective: VVS []Opens eyes to verbal, Ox1, CARMEL, Face symmetric. Follows commands Marina, mild rt side weakness. Withdraws to pain with all extremities. Assessment:86 yof history of Lymphoma presenting with AMS and CT findings consistent with Lt Cronic SDH [] Plan: []Discussed with son in extend regarding imaging findings and patient's condition. Would recommend left side km hole/craniotomy if ,medically cleared. Please obtain MRI of brain/cervical spine. Consider plain XR of Thoracic spine. Consider TEDs, SCDs and hold lovenox. Thank you very much for allowing me to participate in this patient's care. Please do not hesitate to contact our office if you have any questions or concerns regarding this patient. Laureano Fitzpatrick MD
[2017-02-15] MEDS: NS 0.9% 1000 ML* 1,000 ML IV SCH (09:36)
--- NOTE | 2017-02-15 11:08 | RAD ---
INDICATION: Subdural hematoma. COMPARISON: Comparison is made with a prior CT of the brain from February 13, 2017 and a prior MRI of the brain from January 21, 2016. TECHNIQUE: Sagittal T1, axial T1, T2, susceptibility, FLAIR and diffusion weighted images were obtained. The exam is limited due to motion artifact. FINDINGS: The ventricles, cisterns and sulci are prominent consistent with diffuse atrophy. There is an extra-axial fluid collection adjacent to the left frontal, parietal and temporal lobes measuring up to 0.9 cm in thickness most consistent with a chronic subdural hematoma less likely a subdural hygroma. There is also a smaller extra-axial collection present on the right side measuring up to 0.3 cm in thickness. There is mild midline shift of approximately 0.3 cm toward the right side. There is a small area of restricted diffusion in the splenium of the corpus callosum suggestive of an area of ischemia or infarct. There is no evidence for infarct or hemorrhage. The visualized portion of the paranasal sinuses and mastoid air cells appear clear. IMPRESSION: 1. LIMITED STUDY DUE TO MOTION ARTIFACT. 2. CHRONIC BILATERAL SUBDURAL HEMATOMAS LESS LIKELY SUBDURAL HYGROMAS LEFT GREATER THAN RIGHT WITH MILD MIDLINE SHIFT, UNCHANGED. 3. FINDINGS SUGGESTIVE OF A SMALL INFARCT IN THE SPLENIUM OF THE CORPUS CALLOSUM.
--- NOTE | 2017-02-15 11:33 | PN ---
Progress Note - Progress Note Date of Service: 02/15/17 SOAP: Subjective: [] No change, continues to be minimally responsive. No fevers. Has mitts to prevent itching. Acetaminophen (Tylenol Tab*) 650 mg PO Q6H [facility] Last Admin: 02/15/17 03:49 Dose: 650 mg Calcium Carbonate (Tums*) 250 mg PO TID PRN PRN Reason: INDIGESTION Cetirizine HCl (Zyrtec*) 10 mg PO QAM PRN; Protocol PRN Reason: ITCHING Cholecalciferol (Vitamin D Tab*) 5,000 units PO FR [facility] Last Admin: 02/12/17 16:00 Dose: Not Given Duloxetine HCl (Cymbalta Cap*) 20 mg PO DAILY [facility] Last Admin: 02/15/17 09:27 Dose: 20 mg Enoxaparin Sodium (Lovenox(*)) 30 mg SUBCUT Q24H [facility] Last Admin: 02/14/17 16:00 Dose: 30 mg Famotidine (Pepcid Tab*) 20 mg PO BEDTIME [facility] Last Admin: 02/14/17 20:24 Dose: 20 mg Haloperidol Lactate (Haldol Inj Iv/Im*) 1 mg IV SLOW PU Q2H PRN PRN Reason: ANXIETY Hydromorphone HCl (Dilaudid Inj*) 0.5 mg IV Q2H PRN PRN Reason: PAIN Last Admin: 02/14/17 05:14 Dose: 0.5 mg Sodium Chloride (Ns 0.9% 1000 Ml*) 1,000 mls @ 100 mls/hr IV PER RATE [facility] Last Admin: 02/15/17 09:36 Dose: 100 mls/hr Cefazolin Sodium 1 gm/ Sodium (Chloride) 50 mls @ 200 mls/hr IVPB Q8H [facility] Last Admin: 02/15/17 09:36 Dose: 200 mls/hr Metoprolol Tartrate (Lopressor Tab*) 12.5 mg PO BID [facility] Last Admin: 02/15/17 09:28 Dose: 12.5 mg Prednisone (Deltasone Tab*) 40 mg PO QAM [facility] Last Admin: 02/15/17 09:27 Dose: 40 mg Pregabalin (Lyrica Cap(*)) 50 mg PO BID [facility] Last Admin: 02/15/17 09:27 Dose: 50 mg Valacyclovir HCl (Valtrex 500 Mg (*)) 500 mg PO DAILY [facility] PRN Reason: Protocol Last Admin: 02/15/17 09:28 Dose: 500 mg Objective: [] Vital Signs Temp Pulse Resp BP Pulse Ox 98.0 F 109 18 124/77 94 02/15/17 07:37 02/15/17 07:37 02/15/17 09:27 02/15/17 07:37 02/15/17 07:37 HEENT - Mucosa dry, chronic dental disease Neuro - Responding to voice but not oriented. Very sleepy. Skin with diffuse ulcerations, stable CTA RRR S1S2 +BS NT ND Ext with no change in SQ nodularity right arm, ulceration improved over past 2 weeks. 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 Based on cutaneous disease there has been modest effectiveness. Presents with 3 week of continued deterioration in functional status and progressive somulance. Febrile on admission and now on antibiotics. CT shows a moderate size subdural hematoma. MRI confirms hematoma and shows possible small CVA in corpus callosum. Plan: []1. Subdural hematoma. Case discussed with NSG and patient's son. It is unclear how much of her decline is from the subdural hematoma and what is from her underlying lymphoma. Will proceed with drainage with goals if improved QOL assumuing no additonal treatment of lyphoma. Family would like to keep idelalisib as an option in the future if she clearly improved after surgery. 2. Will check CT C-spine and change to Heparin from Lovenox in preparation for surgery. 3. Fever and possible celluitis. Continue antibiotics through surgery. 4. FEN. Encourage PO, check pre-albumin with labs tomorrow and encuraged po intake. 5. Puritis. Famotidine and Zyrtec. Ok to use mittens. 6. Possible CVA, will follow. 7. Continue Prednisone.
[2017-02-15] MEDS: Heparin VIAL(*) 5000 UNITS/ML VIAL (FIVE THOUSAND) SUBCUT SCH ×2 (13:15→21:11)
--- NOTE | 2017-02-15 14:38 | RAD ---
HISTORY: Fall, fever and lethargy. No other history is provided COMPARISONS: None TECHNIQUE: Multiple contiguous axial CT scans were obtained of the cervical spine without intravenous contrast, with coronal and sagittal multiplanar reformations. FINDINGS: The study is limited by patient motion artifact. BRAIN: The visualized brain is unremarkable CENTRAL CANAL: Evaluation of the central canal is limited on CT technique; however, there is no obvious canalicular mass or epidural hemorrhage. ALIGNMENT: The alignment is normal, without subluxation or dislocation. VERTEBRAL BODIES: There is diffuse osteopenia. There is anterolateral marginal osteophyte formation with sclerotic reactive endplate changes at C5-C6. JOINTS: There is diffuse uncovertebral and facet hypertrophy change. MUSCULATURE: Unremarkable INTERVERTEBRAL DISCS: There is diffuse loss of intervertebral disc height. AXIAL IMAGES: Evaluation is limited by patient motion artifact. There is moderate neural foraminal area C5-C6. There is no appreciable osseous central canal stenosis. SOFT TISSUES: The visualized soft tissues of the neck are unremarkable. The prevertebral fat stripe is preserved. OTHER: There are large bilateral pleural effusions. IMPRESSION: 1. LIMITED STUDY. 2. OSTEOPENIA. 3. DEGENERATIVE DISC DISEASE AND OSTEOARTHRITIS. 4. LARGE BILATERAL PLEURAL EFFUSIONS
--- NOTE | 2017-02-15 16:13 | ECHO ---
Patient: PACHECO NOONAN [facility] Rec#: [id number] : 1930 Date: 02/15/2017 Age: 86y Height: 0 cm / .0 in Weight: 0 kg / .0 lbs Sex: F BSA: 1.43 Room#: [facility] Admit Date#: 02/14/2017 Type: Inpatient Referring: Byron Norris Reading: Lionel Persaud MD [employer] Assembler: Carol Parker RDCS CC: LYDIA BUTLER ADJUSTMENT EXAMINER Transthoracic Echocardiogram Indication: Bacteremia BP: 148/89 HR: 101 Rhythm: Tachycardia Findings History: Lymphoma with chemo.mod ,HTN,GERD,HLD,breast cancer,2-3/6 holosystolic murmur. Technical Comments: The study quality is poor. The study is technically limited due to poor apical windows. The study was technically limited due to the patient's inability to lay in the left lateral decubitus position. Completed at 1530. Left Ventricle: The left ventricular chamber size is decreased. Mild concentric left ventricular hypertrophy is observed. Global left ventricular wall motion and contractility are within normal limits. There is normal left ventricular systolic function. The estimated ejection fraction is 60-65%. Abnormal left ventricular diastolic function is observed. There is an E to A reversal in the mitral valve flow pattern suggestive of diastolic dysfunction. Left Atrium: The left atrial chamber size is normal. Right Ventricle: Moderator Band present. The right ventricular cavity size is normal. The right ventricular global systolic function is normal. Right Atrium: The right atrial cavity size is normal. Aortic Valve: The aortic valve is trileaflet. Mild aortic leaflet calcification is visualized. There is a trace of aortic regurgitation. There is mild aortic stenosis. The mean gradient of the aortic valve is 12.86 mmHg. peak velocity 2.5 m/sec There is no aortic vegetation present. Mitral Valve: There is mitral annular calcification. Mitral valve anterior leaflet calcification is visualized. There is a trace of mitral regurgitation. There is no evidence of mitral stenosis. Tricuspid Valve: The tricuspid valve leaflets are normal. There is moderate tricuspid regurgitation. The right ventricular systolic pressure is estimated at 35 mmHg. There is evidence that pulmonary hypertension may be underestimated. There is no tricuspid stenosis. No vegetation is observed on the tricuspid valve. Pulmonic Valve: The pulmonic valve structure is not well visualized. The pulmonic valve appears normal. There is a trace pulmonic regurgitation. There is no pulmonic stenosis. Pericardium: There is no significant pericardial effusion. Aorta: There is no dilatation of the ascending aorta. The aortic arch is not well visualized. The aortic root is normal in size. Pulmonary Artery: The main pulmonary artery appears normal. Venous: The inferior vena cava appears normal in size. There is a greater than 50% respiratory change in the inferior vena cava dimension. Summary: There are no significant changes when compared to the previous study done on 11/16/14 Conclusions Mild concentric left ventricular hypertrophy is observed. Global left ventricular wall motion and contractility are within normal limits. The estimated ejection fraction is 60-65%. The right ventricular global systolic function is normal. There is mild aortic stenosis. Thickened valve leaflets The mean gradient of the aortic valve is 12.86 mmHg. peak velocity 2.5 m/sec There is a trace of mitral regurgitation. There is moderate tricuspid regurgitation. The right ventricular systolic pressure is estimated at 35 mmHg. There is no significant pericardial effusion. Measurements Name Value Normal Range RVIDd (AP) 2D 3.2 cm (0.9 - 2.6) RVDdMajor (2D) 3.8 cm (2.2 - 4.4) RAd ISD 4CH 4.7 cm (3.4 - 4.9) RA (A4C)W 3.7 cm (2.9 - 4.6) IVSd (2D) 1.1 cm (0.6 - 1) LVPWd (2D) 1.1 cm (0.6 - 1) LVIDd (2D) 3.17 cm (3.6 - 5.4) LVIDs (2D) 2.44 cm - LV FS (2D) 22.8 % (25 - 45) EF Teichholz (2D) 47.2 % - Aortic Annulus 1.6 cm (1.4 - 2.6) Ao root diameter (2D) 3.3 cm (2.1 - 3.5) Ascending Ao 3.2 cm (2.1 - 3.4) LA dimension (AP) 2D 3.6 cm (2.3 - 3.8) LAd ISD 4CH 5.1 cm (2.9 - 5.3) LA ISD 4CH W 4 cm (2.5 - 4.5) Name Value Normal Range LA ESV SP 4CH (A/L) 73.4 ml - LA ESV SP 4CH (MOD) 65.4 ml - Name Value Normal Range MV E-wave Vmax 0.88 m/sec - MV deceleration time 126.6 msec - MV A-wave Vmax 1.32 m/sec - MV E:A ratio 0.67 ratio - LV septal e' Vmax 0.04 m/sec - LV lateral e' Vmax 0.04 m/sec - LV E:e' septal ratio 22.5 ratio - LV E:e' lateral ratio 22.5 ratio - Name Value Normal Range AV Vmax 2.5 m/sec - AV VTI 45.1 cm - AV peak gradient 25.3 mmHg - AV mean gradient 12.86 mmHg - LVOT diameter 2 cm - LVOT Vmax 1.34 m/sec - LVOT VTI 21.24 cm - LVOT peak gradient 7.25 mmHg - LVOT mean gradient 3.86 mmHg - DOI (VTI) 0.47 ratio - ANDREEA (continuity Vmax) 1.68 cm2 - ANDREEA (continuity VTI) 2.2 cm2 - Name Value Normal Range TR Vmax 2.81 m/sec - TR peak gradient 32 mmHg - RAP 3 mmHg - RVSP 35 mmHg - IVC diameter 1.9 cm - Name Value Normal Range PV Vmax 1.1 m/sec - PV peak gradient 4.87 mmHg -
[2017-02-15] MEDS: Acetaminophen SUPP* 650 MG SUPP PR PRN (17:39)
[2017-02-15] MEDS: Haloperidol INJ IV/IM* 5 MG/ML AMP IV SLOW PU PRN (21:06)
[2017-02-15] MEDS: Metoprolol Tartrate IV* 1 MG/ML 5 ML VIAL IV SCH (21:09)
[2017-02-16] MEDS: NS 0.9% 1000 ML* 1,000 ML IV SCH ×3 (01:08→22:12)
[2017-02-16] MEDS: ceFAZolin 1 GM VIAL(*) 1 GM in NS 0.9% 50 ML* 50 ML IVPB SCH ×3 (01:08→18:42)
[2017-02-16] MEDS: HYDROmorphone INJ* 2 MG/ML CARPUJECT SYRINGE IV PRN ×4 (02:04→18:57)
[2017-02-16] MEDS: Heparin VIAL(*) 5000 UNITS/ML VIAL (FIVE THOUSAND) SUBCUT SCH ×3 (05:16→22:24)
[2017-02-16 05:24] LABS: Hematocrit 30 % (35-47); Hemoglobin 9.8 g/dl (12.0-16.0); Mean Corpuscular HGB Conc 32 g/dl (31-36); Mean Corpuscular Hemoglobin 30 pg (27-31); Mean Corpuscular Volume 94 fL (80-97); Mean Platelet Volume 9 um3 (7.4-10.4); Red Blood Count 3.25 10^6/ul (4.0-5.4); Red Cell Distribution Width 20 % (10.5-15); White Blood Count 4.4 10^3/ul (3.5-10.8)
[2017-02-16 05:36] LABS: Albumin 2.3 g/dL (3.2-5.2); BUN/Creatinine Ratio 26.4 (8-20); Calcium 8.1 mg/dL (8.6-10.3); EGFR African American 98.5 (>60); EGFR Non-African American 76.6 (>60); Globulin 2.3 g/dL (2-4); Potassium 3.5 mmol/L (3.5-5.0); Total Bilirubin 0.6 mg/dL (0.2-1.0); Total Protein 4.6 g/dL (6.4-8.9)
[2017-02-16] MEDS: Metoprolol Tartrate IV* 1 MG/ML 5 ML VIAL IV SCH ×3 (06:54→22:22)
[2017-02-16] MEDS ORDERED: Dexamethasone IV* 4 MG/ML 1 ML (4 MG) IV SLOW PU ONE (08:00)
[2017-02-16] MEDS: Pregabalin CAP(*) 50 MG PO SCH ×2 (09:18→22:13)
[2017-02-16] MEDS: DULoxetine DR CAP* 20 MG CAP.DR PO SCH (09:18)
[2017-02-16] MEDS: ValACYclovir (*) 500 MG TAB PO SCH (09:18)
--- NOTE | 2017-02-16 10:09 | PN ---
Progress Note - Progress Note Date of Service: 02/16/17 SOAP: Subjective: []No events ON. Son at bedside. MRI revealed small infarct at splenium of CC. Lt SDH stable. No signs of empyema. CT C spine revealed no fractures, but patient has natanael pleural effusions. Suspicion of aspiration PNA. Objective: []VVS []Opens eyes to verbal, Ox1, CARMEL, Face symmetric. Follows commands Marina, mild rt side weakness. Withdraws to pain with all extremities. Assessment: []86 yof history of Lymphoma presenting with AMS and CT findings consistent with Lt Cronic SDH Plan: [] Monitor VS, Neurochecks. Discussed with primary team, and patient's son. Family is strongly considering comfort care measures. Will be available for OR if family decides that would like to proceed with surgical intervention and medically cleared for OR. Thank you very much for allowing me to participate in this patient's care. Please do not hesitate to contact our office if you have any questions or concerns regarding this patient. Laureano Fitzpatrick MD
[2017-02-16] MEDS: Famotidine IV * 20 MG in NS 0.9% 100 ML* 100 ML IVPB SCH ×2 (10:33→14:13)
--- NOTE | 2017-02-16 10:47 | RAD ---
HISTORY: Shortness of breath COMPARISONS: February 12, 2017 VIEWS: 1: frontal portable view of the chest at 10:22 AM FINDINGS: LINES AND TUBES: A left-sided chest port is noted with the tip overlying the cavoatrial junction. CARDIOMEDIASTINAL SILHOUETTE: The aorta is tortuous. The cardiomediastinal silhouette is otherwise normal for portable technique. PLEURA: The costophrenic angles are sharp. No pleural abnormalities are noted. LUNG PARENCHYMA: There is confluent alveolar opacification of the right lower lung field ABDOMEN: The upper abdomen is clear. There is no subphrenic gas. BONES AND SOFT TISSUES: No bone or soft tissue abnormalities are noted. IMPRESSION: 1. LINES AND TUBES ABOVE. 2. RIGHT LOWER LUNG CONSOLIDATION. RECOMMEND FOLLOW-UP UNTIL RESOLUTION TO EXCLUDE UNDERLYING PULMONARY PARENCHYMAL PATHOLOGY.
[2017-02-16] MEDS ORDERED: Metoclopramide IV* 5 MG/ML 2 ML VIAL IV ONE (12:00)
[2017-02-16] MEDS ORDERED: Metoprolol Tartrate IV* 1 MG/ML 5 ML VIAL IV PRN (17:47)
[2017-02-16] MEDS ORDERED: Metoprolol Tartrate IV* 1 MG/ML 5 ML VIAL IV ONE (18:15)
[2017-02-16] MEDS ORDERED: Metoprolol Tartrate IV* 1 MG/ML 5 ML VIAL ONE (18:19)
[2017-02-17] MEDS: ceFAZolin 1 GM VIAL(*) 1 GM in NS 0.9% 50 ML* 50 ML IVPB SCH ×3 (01:57→17:45)
[2017-02-17] MEDS: Haloperidol INJ IV/IM* 5 MG/ML AMP IV SLOW PU PRN ×3 (02:03→15:11)
[2017-02-17] MEDS: Acetaminophen SUPP* 650 MG SUPP PR PRN (05:46)
[2017-02-17] MEDS: Heparin VIAL(*) 5000 UNITS/ML VIAL (FIVE THOUSAND) SUBCUT SCH ×3 (05:50→22:10)
[2017-02-17] MEDS ORDERED: Famotidine IV* 10 MG/ML 2 ML (20 mg) ONE (08:19)
[2017-02-17] MEDS: Metoprolol Tartrate IV* 1 MG/ML 5 ML VIAL IV SCH ×2 (08:37→21:58)
[2017-02-17] MEDS: NS 0.9% 1000 ML* 1,000 ML IV SCH (09:56)
[2017-02-17] MEDS: DULoxetine DR CAP* 20 MG CAP.DR PO SCH (10:09)
[2017-02-17] MEDS: Pregabalin CAP(*) 50 MG PO SCH (10:10)
[2017-02-17] MEDS: ValACYclovir (*) 500 MG TAB PO SCH (10:10)
[2017-02-17] MEDS ORDERED: NS 0.9% 1000 ML* 1,000 ML IV SCH (10:24)
[2017-02-17] MEDS ORDERED: Famotidine IV* 10 MG/ML 2 ML (20 mg) IV SLOW PU SCH (11:00)
[2017-02-17] MEDS: Famotidine IV * 20 MG in NS 0.9% 100 ML* 100 ML IVPB SCH (11:48)
[2017-02-17] MEDS: methylPREDNISolone SOD 40 MG* 1 ML VIAL IV SCH ×2 (12:18→21:56)
[2017-02-17] MEDS: HYDROmorphone INJ* 2 MG/ML CARPUJECT SYRINGE IV PRN ×2 (12:20→17:41)
--- NOTE | 2017-02-17 12:55 | PN ---
Progress Note - Progress Note Date of Service: 02/17/17 SOAP: Subjective: []No events ON Objective: []VVS [Eyes open, Ox1, CARMEL, Face symmetric. Follows commands Marina, mild rt side weakness. Withdraws to pain with all extremities. Assessment:86 yof history of Lymphoma presenting with AMS and CT findings consistent with Lt Cronic SDH [] Plan: []Discussed with son in extend regarding patient's condition. At this point patient's family would like to hold off from surgical intervention. Son understands prognosis and possible outcome. Will be available if needed. Thank you very much for allowing me to participate in this patient's care. Please do not hesitate to contact our office if you have any questions or concerns regarding this patient. Laureano Fitzpatrick MD
[2017-02-18] MEDS: ceFAZolin 1 GM VIAL(*) 1 GM in NS 0.9% 50 ML* 50 ML IVPB SCH (01:05)
[2017-02-18] MEDS: HYDROmorphone INJ* 2 MG/ML CARPUJECT SYRINGE IV PRN (02:26)
[2017-02-18] MEDS: Acetaminophen SUPP* 650 MG SUPP PR PRN (02:26)
[2017-02-18] MEDS: Morphine INJ* 2 MG/ML 1 ML SYRINGE (TWO MG - NEW SYRINGE VERSION) IV PRN ×2 (03:58→05:28)
[2017-02-18] MEDS: Heparin VIAL(*) 5000 UNITS/ML VIAL (FIVE THOUSAND) SUBCUT SCH (05:20)
[2017-02-18] MEDS ORDERED: Morphine INJ* 2 MG/ML 1 ML SYRINGE (TWO MG - NEW SYRINGE VERSION) IV PRN (06:42)
[2017-02-18 08:26] VITALS: BP 132/74
[2017-02-18] MEDS ORDERED: Atropine 1% (ORAL/SL)* 15 ML BTL SL PRN (08:36)
[2017-02-18] MEDS ORDERED: LORazepam INJ* 2 MG/ML 1 ML VIAL IV PUSH PRN (08:36)
--- NOTE | 2017-02-18 08:43 | PN ---
Progress Note - Progress Note Date of Service: 02/18/17 SOAP: Subjective: appears to be working hard to breath but does not seem to be in pain. daughter came last evening and emotionally had a difficult time but did agree over night to go up on the morphine. This am they are asking for her to be comfort care. Objective: lying flat breathing at ~40 bpm gurgling Atropine Sulfate (Atropine 1% (Oral/Sl)*) 2 drop SL Q2H PRN PRN Reason: DISCOMFORT Lorazepam (Ativan Inj*) 1 mg IV PUSH Q4H PRN PRN Reason: ANXIETY Morphine Sulfate (Morphine Inj (Syringe)*) 4 mg IV Q1H PRN PRN Reason: DYSPNEA Assessment: 86 yo F w cutaneous FL with a subdural hematoma and further functional decline, now comfort measures only. I discussed this at length with Lilian's son and daughter. I suspect that she has a very limited time to live and would not likely survive a transfer to hospice or SNF and therefore we will make her comfort care here. I discussed with them increasing the morphine for respiratory distress, adding atropine for secretions, and ativan as needed for anxiety.
[2017-02-18] MEDS: Morphine INJ* 4 MG/ML 1 ML CARPUJECT IV PRN ×4 (09:19→18:05)
== END 2017-02-18 21:45 | disposition expired | DRG 82 ==
LOC: ED 10:21 → MED 13:32 → OBSVTOIN 02-14 09:29 → MEDTELE 02-15 13:46
PROVIDERS: ADMIT Internal Medicine Hematology & Oncology; ATTEND Hospitalist
DX: S06.5X9A Traumatic subdural hemorrhage with loss of consciousness of unspecified duration, initial encounter (principal); I63.9 Cerebral infarction, unspecified; G93.40 Encephalopathy, unspecified; R78.81 Bacteremia; S22.089A Unspecified fracture of T11-T12 vertebra, initial encounter for closed fracture; B95.61 Methicillin susceptible Staphylococcus aureus infection as the cause of diseases classified elsewhere; C83.30 Diffuse large B-cell lymphoma, unspecified site; G81.91 Hemiplegia, unspecified affecting right dominant side; F05 Delirium due to known physiological condition; E86.0 Dehydration; I35.0 Nonrheumatic aortic (valve) stenosis; E78.5 Hyperlipidemia, unspecified; I10 Essential (primary) hypertension; W17.89XA Other fall from one level to another, initial encounter; M51.36 Other intervertebral disc degeneration, lumbar region; L29.9 Pruritus, unspecified; L98.499 Non-pressure chronic ulcer of skin of other sites with unspecified severity; Z66 Do not resuscitate; K58.9 Irritable bowel syndrome, unspecified; K21.9 Gastro-esophageal reflux disease without esophagitis; Z90.13 Acquired absence of bilateral breasts and nipples; Z85.3 Personal history of malignant neoplasm of breast; Z85.038 Personal history of other malignant neoplasm of large intestine; Z88.0 Allergy status to penicillin; Z88.8 Allergy status to other drugs, medicaments and biological substances; Z91.018 Allergy to other foods; Z80.3 Family history of malignant neoplasm of breast; Y92.008 Other place in unspecified non-institutional (private) residence as the place of occurrence of the external cause; Y92.009 Unspecified place in unspecified non-institutional (private) residence as the place of occurrence of the external cause
CPT/HCPCS: 36415; 70450; 70460; 70551; 71010; 72100; 72125; 80048; 80053; 80329; 81003; 81015; 82140; 82550; 83605; 83735; 84134; 84443; 84484; 85025; 85610; 85652; 85730; 86141; 87040; 87077; 87150; 87186; 87205; 93005; 93306; 99232; 99233; A9270-GY; G0480; J0690; J0692; J1100; J1170; J1630; J1644; J1650; J2270; J2765; J2920; J7512